=== PATIENT | female | born 1950 | race Caucasian/White ===

== ENCOUNTER 2023-04-13 20:17 | Inpatient (IN) ==
[2023-04-13] MEDS ORDERED: MoRPHine SULFATE 4 MG/ML 1 ML CARP\\VIAL IV STA (22:50)
[2023-04-13] MEDS ORDERED: Patient's ALLERGY Info needs ENTERED SCH (23:00)
--- NOTE | 2023-04-13 23:05 | History & Physical Report ---
Date of Service April 13, 2023 Assessment & Plan (1) Pericardial effusion: Plan: Patient is a 72-year-old female who presents to [facility] as a direct admit from [facility] for pericardial effusion seen on CTA. Admit to telemetry. We will get CBC, CMP, and will trend troponin. Started on aspirin 81 mg twice daily, colchicine 0.6 mg twice daily. Given 4 mg morphine at time of admission due to increasing chest pain. We will start morphine 4 mg every 6 hours. Ordered echo to be performed in the morning. Routine cardiac consult placed. No signs of cardiac tamponade at this time. Though will monitor closely. If signs of cardiac tamponade occur then cardiology should be immediately made aware. We will keep n.p.o. until seen by cardiology (2) Hyperlipidemia: Plan: Currently taking a atorvastatin 20 mg. Consider restarting once med rec is complete (3) Hypertension: Plan: Currently taking amlodipine 5 mg. Consider restarting once med rec is complete. Admission and Anticipated Discharge Date Admission Date: April 13, 2023 History of Present Illness Chief Complaint: Pericardial effusion Primary Care Provider: Baldo Sow MD Patient is a 72-year-old female with past medical history of hypertension, hyperlipidemia, and depression who is a direct admit from [facility] for pericardial effusion. Patient seen by her PCP on 04/12 for chest pain, shortness of breath, and nonproductive cough. She was told that it was most likely a viral illness. This morning she started to have more difficult breathing and pain with inspiration. She went to [facility]. EKG at [facility] also showed sinus tach. Chest x-ray showed moderate cardiomegaly with haziness in the left lower lobe. CAT scan of the chest showed a large pericardial effusion without pulmonary embolism. Patient was then transferred to at [facility] for further evaluation. Patient was given morphine at 1500 prior to being transferred. Patient seen bedside at time of arrival. Hemodynamically stable at this time. States that her chest pain occurs when she takes a deep breath and was starting to subside with morphine at 1500. Health chest pain is starting to slowly return especially during deep breaths. Patient denies any abdominal pain, nause a or vomiting, lightheadedness, or headache. Allergies Allergy/AdvReac Type Severity Reaction Status Date / Time vancomycin Allergy Mild Rash Verified 04/14/23 22:29 Home Medications Medication Instructions Recorded Confirmed Type amlodipine 5 mg tablet 5 mg PO DAILY 04/14/23 04/14/23 History atorvastatin 20 mg tablet 20 mg PO DAILY 04/14/23 04/14/23 History escitalopram oxalate 10 mg tablet 10 mg PO DAILY 04/14/23 04/14/23 History irbesartan 150 mg tablet 150 mg PO DAILY 04/14/23 04/14/23 History tramadol 50 mg tablet 50 mg PO Q8H PRN Pain 04/14/23 04/14/23 History Past Med/Surg History Social History Smoking Status: Former smoker Hx Alcohol Use: Yes Alcohol type: wine Hx Substance Use: No Preferred Language: Occitan Communication Ability: Effective Hair Spring Cutter Required: No Beliefs That Will Affect Care: None Current Living Situation: Spouse Feels Safe at Home: Yes Assistive Devices: None Review of Systems Review of Systems: All systems reviewed & are unremarkable except as noted in Subjective Physical Exam Constitutional: well developed and well nourished; no acute distress Eyes: PERRL, conjunctivae normal, anicteric sclerae Respiratory: normal respiratory effort, lungs clear to auscultation Cardiovascular: Rate/Rhythm: regular rate and regular rhythm Vessels: no JVD Extremities: no pedal edema Distant heart sounds Gastrointestinal (Abdomen): normal bowel sounds, soft, nontender, no hepatosplenomegaly Musculoskeletal: no cyanosis or clubbing, extremities motor strength 5/5 Skin: no rashes, warm and dry Results & Data Results & Data Vital Signs (Past 12 Hours) Vital Signs Temp Resp BP Pulse Ox O2 Del Method 04/13/23 22:28 36.8 C 20 120/80 94 Room Air Supervising Physician Co-Signing Physician Notes Attending addendum: I have physically seen this patient, have supervised the medical residents activities, and agree with the H&P unless as otherwise noted. Assessment and Plan: Pericardial effusion- Patient excepted in transfer from [facility] emergency department with his tory of pericardial effusion seen on CTA The patient will be admitted to telemetry for serial cardiac enzymes, serial EKG's, cardiac rhythm monitoring and a 2-D echocardiogram with Dopplers. Aspirin 81 mg p.o. twice daily Colchicine 0.6 mg p.o. twice daily Order CBC with differential, chemistry profile, magnesium level and troponin Consult cardiology PAF/hypertension- Presently on amlodipine 5 mg daily and irbesartan 150 mg daily Hyperlipidemia- Continue atorvastatin Check a fasting lipid panel Remaining orders and notations as noted Resident Activity Tracking Resident Involvement: Resident Care Provided Care Provided: Adult [facility] Medicine
[2023-04-13] MEDS: COLCHICINE 0.6 MG TAB PO SCH (23:30)
[2023-04-13] MEDS: ASPIRIN 81 MG ECTAB PO SCH (23:30)
[2023-04-13 23:45] LABS: Basophils # (auto) 0.08 K/uL (0-0.2); Basophils % (auto) 0.3 %; Hematocrit (blood only) 41.5 % (37.0-47.0); Hemoglobin 13.7 g/dl (12.0-16.0); Immature Granulocytes # (auto) 0.13 K/uL (0.01-0.20); Immature Granulocytes % (auto) 0.6 %; Lymphocytes # (auto) 1.74 K/uL (1.2-3.4); Lymphocytes % (auto) 7.6 %; Mean Corpuscular Hemoglobin 28.9 pg (25.0-34.0); Mean Corpuscular Volume 87.6 fL (80.0-100.0); Mean Platelet Volume 10.1 fL (9.4-12.4); Monocytes % (auto) 10.1 %; Neutrophils # (auto) 18.63 K/uL (1.40-6.50); Neutrophils % (auto) 81.4 %; Platelet Count 320 K/uL (130-400); RDW Coefficient of Variation 14.2 % (11.5-14.5); RDW Standard Deviation 45.2 fL (36.4-46.3); Red Blood Count 4.74 M/uL (4.20-5.40); White Blood Count 22.88 K/ul (4.8-10.8)
[2023-04-14] LABS: Albumin Globulin Ratio 1.3 (0.9-2); Albumin Level 4.4 gm/dl (3.4-5.0); Bilirubin,Total 1.4 mg/dl (0.2-1.0); Calcium 9.7 mg/dl (8.6-10.3); Creatinine Clr Calc Pharmacy 43.1 ml/min; Est GFR (African American) 52.7 ml/min; Est GFR (Non-African American) 45.4 ml/min; Globulin 3.3 gm/dl (2.5-4.0); Potassium 4.5 mmol/L (3.5-5.1); Total Protein 7.7 gm/dl (6.0-8.3)
[2023-04-14 00:05] LABS: Troponin I High Sensitivity 7.8 pg/ml (0-14)
[2023-04-14] MEDS: MoRPHine SULFATE 4 MG/ML 1 ML CARP\\VIAL IV PRN ×2 (06:43→22:08)
[2023-04-14 07:14] LABS: Hematocrit (blood only) 41.8 % (37.0-47.0); Hemoglobin 13.7 g/dl (12.0-16.0); Mean Corpuscular Hemoglobin 28.8 pg (25.0-34.0); Mean Corpuscular Hgb Conc 32.8 g/dL (32.0-36.0); Mean Platelet Volume 10.3 fL (9.4-12.4); Platelet Count 329 K/uL (130-400); RDW Coefficient of Variation 14.4 % (11.5-14.5); RDW Standard Deviation 46.3 fL (36.4-46.3); Red Blood Count 4.75 M/uL (4.20-5.40); White Blood Count 25.17 K/ul (4.8-10.8)
[2023-04-14 07:29] LABS: Albumin Globulin Ratio 1.3 (0.9-2); Albumin Level 4.5 gm/dl (3.4-5.0); BUN Creatinine Ratio 23.9 (10-20); Bilirubin,Total 1.2 mg/dl (0.2-1.0); Calcium 9.8 mg/dl (8.6-10.3); Creatinine Clr Calc Pharmacy 47.4 ml/min; Est GFR (African American) 59.1 ml/min; Globulin 3.5 gm/dl (2.5-4.0); Magnesium 1.6 mg/dl (1.7-2.4); Potassium 4.3 mmol/L (3.5-5.1)
[2023-04-14 07:34] LABS: Troponin I High Sensitivity 5.1 pg/ml (0-14)
--- NOTE | 2023-04-14 07:55 | Hospitalist Progress Note ---
Date of Service April 14, 2023 Assessment & Plan (1) Cardiac/pericardial tamponade: Plan: Patient is a 72-year-old female who presents to [facility] as a direct admit from [facility] for pericardial effusion seen on CTA. Placed on aspirin/colchicine Trop negative ECHO LV systolic function normal. No regional wma. Mild concentric LVH. EF 60- 65%. LARGE PERICARDIAL EFFUSION. RV compression during diastole. Pericardium appears moderately thickened. Cards consulted given large effusion/concerns for need for pericardiocentesis s/p pericardiocentesis this morning with Dr Ribeiro. Given leukocytosis this mroning, I checked procalcitonin which was elevated to 8, concerning for infection Blood cultures ordered and pending Orders placed for empiric abx w/ Vanco/Ceftriaxone in the meantime ICU juice tester consulted and alerted this morning when patient went to geoscience laboratory technician for cardiocentesis, monitoring ICU post-op per ICU note, repeat procal in AM/consideration for consultation w/ ID pending results of fluid appreciate assistance/recommendations Fluid for analysis pending, per discussion w/ Dr Patel, concerning for malignancy w/ thickened pericardium. Did alert Dr العلي for possible need for consultation pending - to reach out if/when Repeat ECHO timing per cardiology, further recs pending fluid analysis DVT Proph: SCDs, holding chemoproph pending pericardial drain removal Repeat labs in AM (2) Pericardial effusion: Plan: as above, s/p pericardiocentesis. f/u fluid, possible need consultation ID vs hematology/oncology as above given concerns for malignancy (3) Hyperlipidemia: Plan: Resume atorvastatin (4) Hypertension: Plan: BPs borderline, will hold off amlopdine for now but can be resumed in AM. If Cr stable on repeat in AM would resume her irbesartan (5) Leukocytosis: Plan: as above, concerning for infection. CRP also elevated. unclear if viral vs bacterial, but given procal, blood cultures ordered this morning/abx as above monitor cbc on repeat Plan monitoring in ICU post-pericardiocentesis, management of drain/repeat ECHO per cardiology appreciate assistance/recs by ICU juice tester continue abx/monitor blood cultures and possible need ID consultation vs hematology pending pericardial fluid analysis Admission and Anticipated Discharge Date Admission Date: April 13, 2023 Supervising Physician Co-Signing Physician Notes PA Supervision Note: I did not personally see or examine the patient. I verified all zuniga points and agree with JOSE EDUARDO Brown with the following exceptions and/or additions: Patient is s/p placement of pericardial drain for massive pericardial effusion, with early Echo findings of tamponade. Also with evidence of pericardial thickening, need to rule out malignancy. With improvement in chest pressure symptoms with removal of over a liter of fluid, awaiting cytology and cultures. WBC count elevated in 20s on admission with procal 8, concern for bacterial infection so BCx collected and empiric vanc/ceftriaxone started this AM, to titrate as able based on cultures and further clinical improvement. Patient is ICU status post-pericardial drain. Subjective Eval post-geoscience laboratory technician in ICU 108 after cardiocentesis this morning. Daughter (who is RN) at bedside. Chest discomfort much improved, shortness of breath resolving. On NC post-op to maintain sats. Drain in place, drained 1320mL yellowish drainage. Per discussion with Dr Patel, concerns for malignancy. Does have smoking hx but quit in 1982. NO current fevers/chills, abdominal pain, nausea or vomiting. Thirsty. Provided water by daughter. Discussed blood cultures/antibiotics, drain to remain in place for now and analysis of fluid but did alert hematology for possible need for consultation but will await analysis/cultures. Questions/concerns addressed at this time. Physical Exam Physical Exam: General: WD female sitting up in bed in ICU, drain in place, reporting feeling much better than this morning HEENT: head normocephalic, atraumatic, mm slightly dry, trachea midline Resp normal effort, no cough, on NC post-op, no wheezing CV: regular rhythm, slightly tachy to low 100s, no significant m/r/g, pericardial drain in place, yellowish fluid draining GI: +BS, soft/NT MSK/Neuro: no focal deficits, answering questions appropriately, no slurred speech, follows commands Psych: AOx3, cooperative with examination Results & Data Results & Data Vital Signs (Past 12 Hours) Vital Signs Temp Pulse Pulse Resp BP Pulse Ox O2 Del Method 04/14/23 07:12 37.4 C 108 H 22 122/74 90 Room Air 04/14/23 03:31 36.6 C 98 H 18 110/73 94 Room Air 04/13/23 23:00 94 H 04/13/23 22:50 Room Air 04/13/23 22:28 36.8 C 20 120/80 94 Room Air Laboratory Results 04/14/23 04/14/23 04/14/23 Range/Units 12:39 12:39 11:04 WBC (4.8-10.8) K/ul RBC (4.20-5.40) M/uL Hgb (12.0-16.0) g/dl Hct (37.0-47.0) % MCV (80.0-100.0) fL MCH (25.0-34.0) pg MCHC (32.0-36.0) g/dL RDW Std Deviation (36.4-46.3) fL RDW Coeff of Fede (11.5-14.5) % Plt Count (130-400) K/uL MPV (9.4-12.4) fL Immature Gran % (Auto) % Neut % (Auto) % Lymph % (Auto) % [place] % (Auto) % Eos % (Auto) % Baso % (Auto) % Neut # (Auto) (1.40-6.50) K/uL Lymph # (Auto) (1.2-3.4) K/uL [place] # (Auto) (0.11-0.59) K/uL Eos # (Auto) (0-0.50) K/uL Baso # (Auto) (0-0.2) K/uL Immature Gran # (Auto) (0.01-0.20) K/uL Polychromasia Echinocytes ESR (0-30) mm/hr PT (9.0-12.0) Seconds INR (0.9-1.1) Sodium (136-145) mmol/L Potassium (3.5-5.1) mmol/L Chloride (98-107) mmol/L Carbon Dioxide (21-32) mmol/L Anion Gap (3-11) BUN (6-23) mg/dl Creatinine (0.6-1.2) mg/dl Est Cr Clr Drug Dosing ml/min Est GFR ( Amer) ml/min Est GFR (Non-Af Amer) ml/min BUN/Creatinine Ratio (10-20) Glucose (70-99(Fasting)) mg/dl Calcium (8.6-10.3) mg/dl Magnesium (1.7-2.4) mg/dl Total Bilirubin (0.2-1.0) mg/dl AST (13-39) U/L ALT (7-52) U/L Alkaline Phosphatase (34-104) U/L Lactate Dehydrogenase 155 (86-244) U/L Troponin I High Sens (0-14) pg/ml C-Reactive Protein (0-0.5) mg/dl Total Protein 7.3 (6.0-8.3) gm/dl Albumin (3.4-5.0) gm/dl Globulin (2.5-4.0) gm/dl Albumin/Globulin Ratio (0.9-2) Procalcitonin (0-0.5) ng/ml Fluid Type Fluid Color Fluid Appearance Fld Tot Nucleated Cell Fluid Neutrophils % Fluid Lymphocytes % Fluid Eosinophils % Fluid Basophils % Fl Monocyt/Macrophag % Fld Mesothelial Cell % Fluid Comment 2 Pericard Total Protein Pericardial Albumin Pericardial LDH Pericardial Glucose Pericardial Amylase Pending Adenovirus Culture Lyme Disease IgG Ab (Negative) Lyme Disease IgM Ab (Negative) CMV Culture Enterovirus Culture HSV I HSV II SARS-CoV-2, RNA, NAAT (NEGATIVE) VZV Culture Viral Source 04/14/23 04/14/23 04/14/23 Range/Units 11:04 11:04 08:57 WBC (4.8-10.8) K/ul RBC (4.20-5.40) M/uL Hgb (12.0-16.0) g/dl Hct (37.0-47.0) % MCV (80.0-100.0) fL MCH (25.0-34.0) pg MCHC (32.0-36.0) g/dL RDW Std Deviation (36.4-46.3) fL RDW Coeff of Fede (11.5-14.5) % Plt Count (130-400) K/uL MPV (9.4-12.4) fL Immature Gran % (Auto) % Neut % (Auto) % Lymph % (Auto) % [place] % (Auto) % Eos % (Auto) % Baso % (Auto) % Neut # (Auto) (1.40-6.50) K/uL Lymph # (Auto) (1.2-3.4) K/uL [place] # (Auto) (0.11-0.59) K/uL Eos # (Auto) (0-0.50) K/uL Baso # (Auto) (0-0.2) K/uL Immature Gran # (Auto) (0.01-0.20) K/uL Polychromasia Echinocytes ESR (0-30) mm/hr PT (9.0-12.0) Seconds INR (0.9-1.1) Sodium 136 (136-145) mmol/L Potassium 4.5 (3.5-5.1) mmol/L Chloride 104 (98-107) mmol/L Carbon Dioxide 20 L (21-32) mmol/L Anion Gap 12 H (3-11) BUN 27 H (6-23) mg/dl Creatinine 0.97 (0.6-1.2) mg/dl Est Cr Clr Drug Dosing 53.3 ml/min Est GFR ( Amer) 68.1 ml/min Est GFR (Non-Af Amer) 58.8 ml/min BUN/Creatinine Ratio 27.8 H (10-20) Glucose 117 H (70-99(Fasting)) mg/dl Calcium 9.7 (8.6-10.3) mg/dl Magnesium (1.7-2.4) mg/dl Total Bilirubin 1.1 H (0.2-1.0) mg/dl AST 17 (13-39) U/L ALT 23 (7-52) U/L Alkaline Phosphatase 62 (34-104) U/L Lactate Dehydrogenase (86-244) U/L Troponin I High Sens 3.7 (0-14) pg/ml C-Reactive Protein 38.30 H (0-0.5) mg/dl Total Protein 7.9 (6.0-8.3) gm/dl Albumin 4.5 (3.4-5.0) gm/dl Globulin 3.4 (2.5-4.0) gm/dl Albumin/Globulin Ratio 1.3 (0.9-2) Procalcitonin (0-0.5) ng/ml Fluid Type Pending Fluid Color Pending Fluid Appearance Pending Fld Tot Nucleated Cell Pending Fluid Neutrophils % Pending Fluid Lymphocytes % Pending Fluid Eosinophils % Pending Fluid Basophils % Pending Fl Monocyt/Macrophag % Pending Fld Mesothelial Cell % Pending Fluid Comment 2 Pending Pericard Total Protein Pending Pericardial Albumin Pending Pericardial LDH Pending Pericardial Glucose Pending Pericardial Amylase Cancelled Adenovirus Culture Pending Lyme Disease IgG Ab (Negative) Lyme Disease IgM Ab (Negative) CMV Culture Pending Enterovirus Culture Pending HSV I Pending HSV II Pending SARS-CoV-2, RNA, NAAT (NEGATIVE) VZV Culture Pending Viral Source Pending 04/14/23 04/14/23 04/14/23 Range/Units 08:57 08:57 08:57 WBC 24.31 H (4.8-10.8) K/ul RBC 4.82 (4.20-5.40) M/uL Hgb 13.9 (12.0-16.0) g/dl Hct 42.2 (37.0-47.0) % MCV 87.6 (80.0-100.0) fL MCH 28.8 (25.0-34.0) pg MCHC 32.9 (32.0-36.0) g/dL RDW Std Deviation 46.4 H (36.4-46.3) fL RDW Coeff of Fede 14.5 (11.5-14.5) % Plt Count 311 (130-400) K/uL MPV 10.0 (9.4-12.4) fL Immature Gran % (Auto) 0.9 % Neut % (Auto) 85.5 % Lymph % (Auto) 4.4 % [place] % (Auto) 8.9 % Eos % (Auto) 0.0 % Baso % (Auto) 0.3 % Neut # (Auto) 20.76 H (1.40-6.50) K/uL Lymph # (Auto) 1.08 L (1.2-3.4) K/uL [place] # (Auto) 2.16 H (0.11-0.59) K/uL Eos # (Auto) 0.01 (0-0.50) K/uL Baso # (Auto) 0.07 (0-0.2) K/uL Immature Gran # (Auto) 0.23 H (0.01-0.20) K/uL Polychromasia 1+ Echinocytes 1+ ESR 62 H (0-30) mm/hr PT 11.4 (9.0-12.0) Seconds INR 1.0 (0.9-1.1) Sodium (136-145) mmol/L Potassium (3.5-5.1) mmol/L Chloride (98-107) mmol/L Carbon Dioxide (21-32) mmol/L Anion Gap (3-11) BUN (6-23) mg/dl Creatinine (0.6-1.2) mg/dl Est Cr Clr Drug Dosing ml/min Est GFR ( Amer) ml/min Est GFR (Non-Af Amer) ml/min BUN/Creatinine Ratio (10-20) Glucose (70-99(Fasting)) mg/dl Calcium (8.6-10.3) mg/dl Magnesium (1.7-2.4) mg/dl Total Bilirubin (0.2-1.0) mg/dl AST (13-39) U/L ALT (7-52) U/L Alkaline Phosphatase (34-104) U/L Lactate Dehydrogenase (86-244) U/L Troponin I High Sens (0-14) pg/ml C-Reactive Protein (0-0.5) mg/dl Total Protein (6.0-8.3) gm/dl Albumin (3.4-5.0) gm/dl Globulin (2.5-4.0) gm/dl Albumin/Globulin Ratio (0.9-2) Procalcitonin (0-0.5) ng/ml Fluid Type Fluid Color Fluid Appearance Fld Tot Nucleated Cell Fluid Neutrophils % Fluid Lymphocytes % Fluid Eosinophils % Fluid Basophils % Fl Monocyt/Macrophag % Fld Mesothelial Cell % Fluid Comment 2 Pericard Total Protein Pericardial Albumin Pericardial LDH Pericardial Glucose Pericardial Amylase Adenovirus Culture Lyme Disease IgG Ab (Negative) Lyme Disease IgM Ab (Negative) CMV Culture Enterovirus Culture HSV I HSV II SARS-CoV-2, RNA, NAAT (NEGATIVE) VZV Culture Viral Source 04/14/23 04/14/23 04/14/23 Range/Units 08:57 06:43 06:43 WBC 25.17 H (4.8-10.8) K/ul RBC 4.75 (4.20-5.40) M/uL Hgb 13.7 (12.0-16.0) g/dl Hct 41.8 (37.0-47.0) % MCV 88.0 (80.0-100.0) fL MCH 28.8 (25.0-34.0) pg MCHC 32.8 (32.0-36.0) g/dL RDW Std Deviation 46.3 (36.4-46.3) fL RDW Coeff of Fede 14.4 (11.5-14.5) % Plt Count 329 (130-400) K/uL MPV 10.3 (9.4-12.4) fL Immature Gran % (Auto) % Neut % (Auto) % Lymph % (Auto) % [place] % (Auto) % Eos % (Auto) % Baso % (Auto) % Neut # (Auto) (1.40-6.50) K/uL Lymph # (Auto) (1.2-3.4) K/uL [place] # (Auto) (0.11-0.59) K/uL Eos # (Auto) (0-0.50) K/uL Baso # (Auto) (0-0.2) K/uL Immature Gran # (Auto) (0.01-0.20) K/uL Polychromasia Echinocytes ESR (0-30) mm/hr PT (9.0-12.0) Seconds INR (0.9-1.1) Sodium 136 (136-145) mmol/L Potassium 4.3 (3.5-5.1) mmol/L Chloride 102 (98-107) mmol/L Carbon Dioxide 24 (21-32) mmol/L Anion Gap 10 (3-11) BUN 26 H (6-23) mg/dl Creatinine 1.09 (0.6-1.2) mg/dl Est Cr Clr Drug Dosing 47.4 ml/min Est GFR ( Amer) 59.1 ml/min Est GFR (Non-Af Amer) 51.0 ml/min BUN/Creatinine Ratio 23.9 H (10-20) Glucose 122 H (70-99(Fasting)) mg/dl Calcium 9.8 (8.6-10.3) mg/dl Magnesium 1.6 L (1.7-2.4) mg/dl Total Bilirubin 1.2 H (0.2-1.0) mg/dl AST 18 (13-39) U/L ALT 24 (7-52) U/L Alkaline Phosphatase 60 (34-104) U/L Lactate Dehydrogenase (86-244) U/L Troponin I High Sens 5.1 (0-14) pg/ml C-Reactive Protein (0-0.5) mg/dl Total Protein 8.0 (6.0-8.3) gm/dl Albumin 4.5 (3.4-5.0) gm/dl Globulin 3.5 (2.5-4.0) gm/dl Albumin/Globulin Ratio 1.3 (0.9-2) Procalcitonin 8.03 H (0-0.5) ng/ml Fluid Type Fluid Color Fluid Appearance Fld Tot Nucleated Cell Fluid Neutrophils % Fluid Lymphocytes % Fluid Eosinophils % Fluid Basophils % Fl Monocyt/Macrophag % Fld Mesothelial Cell % Fluid Comment 2 Pericard Total Protein Pericardial Albumin Pericardial LDH Pericardial Glucose Pericardial Amylase Adenovirus Culture Lyme Disease IgG Ab Negative (Negative) Lyme Disease IgM Ab Negative (Negative) CMV Culture Enterovirus Culture HSV I HSV II SARS-CoV-2, RNA, NAAT (NEGATIVE) VZV Culture Viral Source 04/13/23 04/13/23 04/13/23 Range/Units 23:30 23:21 23:21 WBC 22.88 H (4.8-10.8) K/ul RBC 4.74 (4.20-5.40) M/uL Hgb 13.7 (12.0-16.0) g/dl Hct 41.5 (37.0-47.0) % MCV 87.6 (80.0-100.0) fL MCH 28.9 (25.0-34.0) pg MCHC 33.0 (32.0-36.0) g/dL RDW Std Deviation 45.2 (36.4-46.3) fL RDW Coeff of Fede 14.2 (11.5-14.5) % Plt Count 320 (130-400) K/uL MPV 10.1 (9.4-12.4) fL Immature Gran % (Auto) 0.6 % Neut % (Auto) 81.4 % Lymph % (Auto) 7.6 % [place] % (Auto) 10.1 % Eos % (Auto) 0.0 % Baso % (Auto) 0.3 % Neut # (Auto) 18.63 H (1.40-6.50) K/uL Lymph # (Auto) 1.74 (1.2-3.4) K/uL [place] # (Auto) 2.30 H (0.11-0.59) K/uL Eos # (Auto) 0.00 (0-0.50) K/uL Baso # (Auto) 0.08 (0-0.2) K/uL Immature Gran # (Auto) 0.13 (0.01-0.20) K/uL Polychromasia Echinocytes ESR (0-30) mm/hr PT (9.0-12.0) Seconds INR (0.9-1.1) Sodium 135 L (136-145) mmol/L Potassium 4.5 (3.5-5.1) mmol/L Chloride 102 (98-107) mmol/L Carbon Dioxide 22 (21-32) mmol/L Anion Gap 11 (3-11) BUN 24 H (6-23) mg/dl Creatinine 1.20 (0.6-1.2) mg/dl Est Cr Clr Drug Dosing 43.1 ml/min Est GFR ( Amer) 52.7 ml/min Est GFR (Non-Af Amer) 45.4 ml/min BUN/Creatinine Ratio 20.0 (10-20) Glucose 154 H (70-99(Fasting)) mg/dl Calcium 9.7 (8.6-10.3) mg/dl Magnesium (1.7-2.4) mg/dl Total Bilirubin 1.4 H (0.2-1.0) mg/dl AST 21 (13-39) U/L ALT 26 (7-52) U/L Alkaline Phosphatase 58 (34-104) U/L Lactate Dehydrogenase (86-244) U/L Troponin I High Sens 7.8 (0-14) pg/ml C-Reactive Protein (0-0.5) mg/dl Total Protein 7.7 (6.0-8.3) gm/dl Albumin 4.4 (3.4-5.0) gm/dl Globulin 3.3 (2.5-4.0) gm/dl Albumin/Globulin Ratio 1.3 (0.9-2) Procalcitonin (0-0.5) ng/ml Fluid Type Fluid Color Fluid Appearance Fld Tot Nucleated Cell Fluid Neutrophils % Fluid Lymphocytes % Fluid Eosinophils % Fluid Basophils % Fl Monocyt/Macrophag % Fld Mesothelial Cell % Fluid Comment 2 Pericard Total Protein Pericardial Albumin Pericardial LDH Pericardial Glucose Pericardial Amylase Adenovirus Culture Lyme Disease IgG Ab (Negative) Lyme Disease IgM Ab (Negative) CMV Culture Enterovirus Culture HSV I HSV II SARS-CoV-2, RNA, NAAT NEGATIVE (NEGATIVE) VZV Culture Viral Source Diagnostic Findings Chest X-Ray 04/14/23 07:51 XR chest 1V portable HISTORY: leukocytosis, pericardial effusion, eval pna COMPARISON: Outside hospital chest CTA 04/13/2023. FINDINGS: The cardiac silhouette is markedly enlarged consistent with patient's known large pericardial effusion. No pneumothorax. Trace bilateral pleural effusions persist. No evidence for pulmonary edema. No new focal lung consolidations to suggest pneumonia. A few bibasilar linear densities favor subsegmental atelectasis. No acute fractures. IMPRESSION: Enlargement of the cardiac silhouette consistent with the patient's known large pericardial effusion. This is similar to the prior study. ACT 112: Negative or not required by law. Electronically signed by: Randall Lowery M.D. 04/14/2023 8:52 AM ECHOCARDIOGRAM LV systolic function normal. No regional wma. Mild concentric LVH. EF 60-65%. LARGE PERICARDIAL EFFUSION. RV compression during diastole. Pericardium appears moderately thickened. No prior study for comparison PG Care Time/CCT Total # of Minutes Spent Total Time Spent with Patient: Total time spent is greater than 50% in coordination of care (as documented) at patient's floor/unit and/or counseling patient: Coding Level of Care Code 83176 SUB INP/OBS CARE 3/50MIN Diagnoses Cardiac/pericardial tamponade I31.4 Pericardial effusion I31.39 Hyperlipidemia E78.5 Hypertension I10 Leukocytosis D72.829
[2023-04-14] MEDS: COLCHICINE 0.6 MG TAB PO SCH ×2 (08:33→21:02)
[2023-04-14] MEDS: ASPIRIN 81 MG ECTAB PO SCH ×2 (08:34→21:02)
[2023-04-14] MEDS ORDERED: MoRPHine SULFATE 4 MG/ML 1 ML CARP\\VIAL IV STA (08:40)
[2023-04-14] MEDS ORDERED: MoRPHine SULFATE 10 MG/ML CARP/VIAL IV STA (08:41)
[2023-04-14] MEDS: MAGNESIUM SULFATE / D5W 1 GM/100 ML BAG IV SCH ×2 (08:44→12:55)
--- NOTE | 2023-04-14 08:54 | XRay Report ---
XR chest 1V portable HISTORY: leukocytosis, pericardial effusion, eval pna COMPARISON: Outside hospital chest CTA 04/13/2023. FINDINGS: The cardiac silhouette is markedly enlarged consistent with patient's known large pericardi al effusion. No pneumothorax. Trace bilateral pleural effusions persist. No evidence for pulmonary ed lynette. No new focal lung consolidations to suggest pneumonia. A few bibasilar linear densities favor frias bsegmental atelectasis. No acute fractures. IMPRESSION: Enlargement of the cardiac silhouette consistent with the patient's known large pericardial effusion. This is similar to the prior study. ACT 112: Negative or not required by law. Electronically signed by: Randall Lowery M.D. 04/14/2023 8:52 AM
[2023-04-14] MEDS ORDERED: IBUPROFEN 600 MG TAB PO STA (09:17)
[2023-04-14] MEDS ORDERED: FAMOTIDINE 20 MG in SYRINGE 3 ML IV ONE (09:30)
[2023-04-14 09:41] LABS: Hematocrit (blood only) 42.2 % (37.0-47.0); Hemoglobin 13.9 g/dl (12.0-16.0); Mean Corpuscular Hemoglobin 28.8 pg (25.0-34.0); Mean Corpuscular Hgb Conc 32.9 g/dL (32.0-36.0); Mean Corpuscular Volume 87.6 fL (80.0-100.0); Platelet Count 311 K/uL (130-400); RDW Coefficient of Variation 14.5 % (11.5-14.5); RDW Standard Deviation 46.4 fL (36.4-46.3); Red Blood Count 4.82 M/uL (4.20-5.40); White Blood Count 24.31 K/ul (4.8-10.8)
--- NOTE | 2023-04-14 09:51 | XCELERA ---
[id number]
[2023-04-14 10:00] LABS: Albumin Globulin Ratio 1.3 (0.9-2); Albumin Level 4.5 gm/dl (3.4-5.0); BUN Creatinine Ratio 27.8 (10-20); Bilirubin,Total 1.1 mg/dl (0.2-1.0); Calcium 9.7 mg/dl (8.6-10.3); Creatinine Clr Calc Pharmacy 53.3 ml/min; Est GFR (African American) 68.1 ml/min; Est GFR (Non-African American) 58.8 ml/min; Globulin 3.4 gm/dl (2.5-4.0); Potassium 4.5 mmol/L (3.5-5.1); Total Protein 7.9 gm/dl (6.0-8.3)
[2023-04-14 10:06] LABS: Troponin I High Sensitivity 3.7 pg/ml (0-14)
[2023-04-14 10:07] LABS: Basophils # (auto) 0.07 K/uL (0-0.2); Basophils % (auto) 0.3 %; Echinocytes 1+; Eosinophils # (auto) 0.01 K/uL (0-0.50); Immature Granulocytes # (auto) 0.23 K/uL (0.01-0.20); Immature Granulocytes % (auto) 0.9 %; Lymphocytes # (auto) 1.08 K/uL (1.2-3.4); Lymphocytes % (auto) 4.4 %; Monocytes # (auto) 2.16 K/uL (0.11-0.59); Monocytes % (auto) 8.9 %; Neutrophils # (auto) 20.76 K/uL (1.40-6.50); Neutrophils % (auto) 85.5 %; Polychromasia 1+
[2023-04-14 10:08] LABS: Prothrombin Time 11.4 Seconds (9.0-12.0)
[2023-04-14 10:11] LABS: Procalcitonin 8.03 ng/ml (0-0.5)
[2023-04-14 10:17] LABS: Lyme Ab IgG w/WB Rflx Negative (Negative); Lyme Ab IgM w/WB Rflx Negative (Negative)
[2023-04-14 10:20] LABS: C Reactive Protein 38.3 mg/dl (0-0.5)
[2023-04-14] MEDS ORDERED: LIDOCAINE 1% LOCAL 20 ML VIAL ONE (10:22)
[2023-04-14] MEDS ORDERED: fentaNYL citrate PF 100 MCG/2 ML VIAL ONE (10:34)
[2023-04-14] MEDS ORDERED: MIDAZOLAM HCL 1 MG/ML 2ML VIAL ONE (10:34)
[2023-04-14] MEDS ORDERED: VANCOMYCIN CONSULT ACTIVE PRN (10:36)
--- NOTE | 2023-04-14 10:47 | Cardiology Consultation ---
Date of Consultation April 14, 2023 Assessment & Plan (1) Pericardial effusion: -large effusion with echocardiographic evidence of tamponade. -needs urgent pericardiocentesis. -significant pericardial thickening, rule out metastatic disease. -continue colchicine. -consider intravenous Toradol for analgesia. -further recommendations pending pericardial fluid analysis. History of Present Illness Attending Physician: Bety Vasquez DO History of Present Illness Mrs. Arce is a 73-year-old female admitted yesterday because of a large peric ardial effusion noted on CT scan. This consultation was ordered to assist her cardiac management. The patient was in her usual state of health until Thursday evening when she began to note pleuritic chest discomfort and exertional dyspnea. Her symptoms progressed and she presented to her PCP on Thursday with the above complaints. She was told it was likely a viral illness. On Thursday morning, she was having or significant dyspnea and chest discomfort, therefore, presented to the [facility]'s emergency room. EKG notes sinus tachycardia and a chest x-ray noted significant cardiomegaly. A CT scan of the chest showed a large pericardial effusion without evidence of a pulmonary embolism. She was then transferred directly to our institution for further evaluation. She has continued to experience pleuritic and positional chest discomfort. She notes dyspnea with minimal physical activity. An echocardiogram performed this morning noted a large pericardial effusion with evidence of diastolic collapse of the right ventricle. We transported the patient directly to the cardiac catheterization laboratory for an emergent pericardiocentesis. Past medical and surgical history 1. Hypertension 2. Hypercholesterolemia 3. Anxiety/depression Social history , lives with her No tobacco Rare alcohol Family history Noncontributory Review of systems A 10 review systems undertaken and negative except that described above. 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 HEENT exam is negative. Neck is supple with full carotid upstrokes. There are no carotid bruits. Jugular venous pressure is flat at 90. There is no thyromegaly. Cardiovascular exam reveals a regular rhythm with distant heart sounds. No obvious murmurs. Lungs are clear without rales, rhonchi or wheeze. Abdomen is soft without bruits. Extremities reveal intact radial artery pulses bilaterally. There is no peripheral edema. Results & Data Vital Signs (Past 12 Hours) Vital Signs Temp Pulse Pulse Resp BP Pulse Ox O2 Del Method 04/14/23 10:25 703 H 18 103/79 90 Nasal Cannula 04/14/23 07:12 37.4 C 108 H 22 122/74 90 Room Air 04/14/23 03:31 36.6 C 98 H 18 110/73 94 Room Air 04/13/23 23:00 94 H 04/13/23 22:50 Room Air O2 Flow Rate 04/14/23 10:25 3 04/14/23 07:12 04/14/23 03:31 04/13/23 23:00 04/13/23 22:50 Laboratory Results CBC notes hemoglobin 13.7, crit 41.5, white count 22.9, platelet count 3 in 20,000. Electrolytes note a sodium 136, potassium 4.3, chloride 102, bicarb 24, BUN 26, creatinine 1.1, glucose of 122. Magnesium level is low at 1.6. Diagnostic Findings EKG notes sinus tachycardia with low voltage throughout. There is diffuse ST elevation and [place] depression noted in lead 2. Chest x-ray notes significant cardiomegaly. PG Care Time/CCT Total # of Minutes Spent Total Time Spent with Patient: Total time spent is greater than 50% in coordination of care (as documented) at patient's floor/unit and/or counseling patient: Coding Level of Care Code 70273 INT INP/OBS CARE 3/75MIN Diagnoses Pericardial effusion I31.39
[2023-04-14] MEDS ORDERED: VANCOMYCIN HCL 1,750 MG in SODIUM CHLORIDE 0.9% 500 ML IV ONE (11:00)
--- NOTE | 2023-04-14 11:53 | Post Anesthesia Assessment ---
Date of Service April 14, 2023 Post Sedation Assessment Vital Signs Temp Pulse Pulse Resp BP Pulse Ox O2 Del Method 04/14/23 11:09 110 H 04/14/23 08:00 Nasal Cannula 04/14/23 10:25 703 H 18 103/79 90 Nasal Cannula 04/14/23 07:12 37.4 C 108 H 22 122/74 90 Room Air 04/14/23 03:31 36.6 C 98 H 18 110/73 94 Room Air 04/13/23 23:00 94 H 04/13/23 22:50 Room Air 04/13/23 22:28 36.8 C 20 120/80 94 Room Air O2 Flow Rate 04/14/23 11:09 04/14/23 08:00 2 04/14/23 10:25 3 04/14/23 07:12 04/14/23 03:31 04/13/23 23:00 04/13/23 22:50 04/13/23 22:28 Recovery Score Activity: Moves 4 extremities Respiration: Deep Breath/Cough Circulation: +/-20% PreAnes Value Consciousness: Fully Awake Oxygen Saturation: > 92% On Room Air Discharge Sedation Level of Care: Fast Track Phase II Post Sedation Plan On clinical assessment, the patient appears to have tolerated the sedation without complications. Patient is recovering as anticipated. Patient will continue to be monitored by nursing and may be discharged when sedation discharge criteria are met per below protocol. Upon Completions of procedure up to 15 minutes continue every 5 minute vital signs and the P.A.R. score; then discharge to a Phase I or Fast Track to Phase II per the following guidelines: * Discharge Patient to appropriate Phase II area if PAR is 8 or greater or return to pre- procedure baseline. The post - procedure orders will be as directed. * If PAR score is less than 8 or not return to pre-procedure baseline then patient will follow Phase I monitoring till PAR is reached for Phase II. The Phase I may be done in procedure room or may call to secure a Phase I area. * If naloxone or flumazenil are used for reversal, hold in Phase I for continued monitoring from when last reversal dose was given for a minimum of 60 minutes or longer pending the nurse and/or physician discretion of patient condition before discharge to Phase II. Please call the Sedation Physician to re-evaluate and complete post-note for discharge to Phase II area. Do NOT discharge from procedure sedation or Phase 1 until post- sedation evaluation note is complete by procedure /sedation MD Sedation Discharge Instructions to be given to the patient at discharge to home. [facility] [place] Procedure Codes (Charges) Indication for Procedure Indication for procedure: pericardial effusion tamponade Sedation/Anesthesia Procedure 1: Sedation/Anesthesia: 42380 Mod Sedation by the same physician;Init15 Min Child Age 5 & Up (start 1054) Total Sedation Time (minutes): 37 Procedure 2: Sedation/Anesthesia: 01243 Mod Sedation by the same physician; Ea [id number] Minutes (end 1129) Total Sedation Time (minutes): 37
--- NOTE | 2023-04-14 12:41 | Critical Care Consultation ---
Date of Consultation April 14, 2023 Assessment & Plan (1) Pericardial effusion: (2) Cardiac/pericardial tamponade: Plan Impression: 72-year-old female without significant cardiopulmonary or oncology history presents with massive pericardial effusion and evidence of early tamponade status post pericardial drain with removal of 1.3 L of serous fluid. Cytology and fluid characteristics currently pending. She is in the ICU for monitoring while the pericardial drains in place. Recommendations: 1. Pericardial effusion: Continue surveillance with the drain. Follow-up echocardiogram per cardiology. Await fluid characterization including cytology cell count and differential, and culture data. Colchicine has been initiated by cardiology. Depending on results, serological evaluation may be appropriate. 2. Procalcitonin is markedly elevated at 8 with a C-reactive protein of 38. Unclear if this could be related to viral infection, however this elevation of procalcitonin is typically associated with a bacterial infection. Blood cultures obtained this morning showed no growth to date and pericardial studies are currently pending. Patient was initiated on ceftriaxone vancomycin. We will recheck procalcitonin in a.m. and consider tapering antibiotics or consulting infectious disease depending on results of the pericardial fluid. 3. Hold DVT prophylaxis other than SCDs pending pericardial drain removal. 4. Can resume diet unless cardiology has additional invasive procedures anticipated. 5. We will follow-up with CBC in a.m. History of Present Illness Attending Physician: Bety Vasquez, History of Present Illness Asked by hospitalist to assist in evaluation management this patient status postplacement of a pericardial drain for massive pericardial effusion with early echocardiographic evidence of tamponade. History is obtained from review electronic medical record as well as discussion with the patient. Patient is a 72-year-old female who initially presented to [facility] yesterday. She complained of some chest pain and shortness of breath. She had a chest x-ray demonstrated marked cardiomegaly. This was followed with a CT scan which demonstrated a large pericardial effusion. The patient was transported to [facility]. She was not felt to be in clinical tamponade yesterday and was observed. Echo today and cardiology consultation were consistent with early tamponade physiology and the patient was taken urgently to the Diabetes Trainer for pericardial drain placement. A total of 1.3 L of fluid was removed and the drain left in place and the patient transferred to the ICU for monitoring. Patient is hemodynamically stable currently with slight tachycardia. She thinks her breathing and chest pain are better. She does not report fevers chills or night sweats. Patient does not report any clear viral illness. There have been no ill contacts at home. She does have a family history of colon cancer but gets colonoscopies regularly. She has had polyps removed but no malignancy that she is aware of. Allergies Allergy/AdvReac Type Severity Reaction Status Date / Time No Known Allergies Allergy Unverified 04/13/23 23:03 Home Medications Medication Instructions Recorded Confirmed Type amlodipine 5 mg tablet 5 mg PO DAILY 04/14/23 04/14/23 History atorvastatin 20 mg tablet 20 mg PO DAILY 04/14/23 04/14/23 History escitalopram oxalate 10 mg tablet 10 mg PO DAILY 04/14/23 04/14/23 History irbesartan 150 mg tablet 150 mg PO DAILY 04/14/23 04/14/23 History tramadol 50 mg tablet 50 mg PO Q8H PRN Pain 04/14/23 04/14/23 History Patient History Social History Smoking Status: Former smoker Hx Alcohol Use: Yes Alcohol type: wine Hx Substance Use: No Preferred Language: French 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 Beliefs That Will Affect Care: None Current Living Situation: Spouse Feels Safe at Home: Yes Assistive Devices: Glasses Review of Systems Review of Systems: Please refer to admission H&P Physical Exam Constitutional: WD/WN, vitals as above Neck: trachea midline, no thyromegaly Respiratory: normal respiratory effort, lungs clear to auscultation Cardiovascular: RRR, no murmur, no edema Chest (Breasts): Additional Comments: Pericardial drain in place Gastrointestinal (Abdomen): normal bowel sounds, soft, nontender, no hepatosplenomegaly Musculoskeletal: Extremities: extremities normal to inspection Skin: no rashes, warm and dry Neurologic: Nonfocal exam Lymphatic: no cervical lymphadenopathy Results & Data Results & Data Vital Signs (Past 12 Hours) Vital Signs Temp Pulse Pulse Pulse Resp BP Pulse Ox 04/14/23 12:00 103 H 16 107/64 92 04/14/23 11:45 105 H 16 121/61 93 04/14/23 11:09 110 H 04/14/23 08:00 04/14/23 10:25 70 18 103/79 90 04/14/23 07:12 37.4 C 108 H 22 122/74 90 04/14/23 03:31 36.6 C 98 H 18 110/73 94 O2 Del Method O2 Flow Rate 04/14/23 12:00 Room Air 04/14/23 11:45 Room Air 04/14/23 11:09 04/14/23 08:00 Nasal Cannula 2 04/14/23 10:25 Nasal Cannula 3 04/14/23 07:12 Room Air 04/14/23 03:31 Room Air Critical Care Results & Data Vital Signs (Past 12 Hours) Vital Signs Temp Pulse Pulse Pulse Resp BP Pulse Ox 04/14/23 12:00 103 H 16 107/64 92 04/14/23 11:45 105 H 16 121/61 93 04/14/23 11:09 110 H 04/14/23 08:00 04/14/23 10:25 70 18 103/79 90 04/14/23 07:12 37.4 C 108 H 22 122/74 90 04/14/23 03:31 36.6 C 98 H 18 110/73 94 O2 Del Method O2 Flow Rate 04/14/23 12:00 Room Air 04/14/23 11:45 Room Air 04/14/23 11:09 04/14/23 08:00 Nasal Cannula 2 04/14/23 10:25 Nasal Cannula 3 04/14/23 07:12 Room Air 04/14/23 03:31 Room Air Lab & Micro Results (Past 24 Hours) RBC 4.82 M/uL (4.20-5.40) 04/14/23 WBC 24.31 K/ul (4.8-10.8) H 04/14/23 Hgb 13.9 g/dl (12.0-16.0) 04/14/23 Hct 42.2 % (37.0-47.0) 04/14/23 MCV 87.6 fL (80.0-100.0) 04/14/23 MCH 28.8 pg (25.0-34.0) 04/14/23 MCHC 32.9 g/dL (32.0-36.0) 04/14/23 RDW Standard Deviation 46.4 fL (36.4-46.3) H 04/14/23 RDW Coefficient of Variation 14.5 % (11.5-14.5) 04/14/23 Plt Count 311 K/uL (130-400) 04/14/23 MPV 10.0 fL (9.4-12.4) 04/14/23 Neutrophils (%) (Auto) 85.5 % 04/14/23 Lymphocytes (%) (Auto) 4.4 % 04/14/23 Monocytes # (Auto) 2.16 K/uL (0.11-0.59) H 04/14/23 Eosinophils # (Auto) 0.01 K/uL (0-0.50) 04/14/23 Immature Granulocyte % (Auto) 0.9 % 04/14/23 Neutrophils # (Auto) 20.76 K/uL (1.40-6.50) H 04/14/23 Lymphocytes # (Auto) 1.08 K/uL (1.2-3.4) L 04/14/23 Monocytes # (Auto) 2.16 K/uL (0.11-0.59) H 04/14/23 Eosinophils # (Auto) 0.01 K/uL (0-0.50) 04/14/23 Basophils # (Auto) 0.07 K/uL (0-0.2) 04/14/23 Immature Granulocyte # (Auto) 0.23 K/uL (0.01-0.20) H 04/14 Polychromasia 1+ 04/14/23 Echinocytes 1+ 04/14/23 Na 136 mmol/L (136-145) 04/14/23 K 4.5 mmol/L (3.5-5.1) 04/14/23 Cl 104 mmol/L (98-107) 04/14/23 CO2 20 mmol/L (21-32) L 04/14/23 Anion Gap 12 (3-11) H 04/14/23 BUN 27 mg/dl (6-23) H 04/14/23 Creatinine 0.97 mg/dl (0.6-1.2) 04/14/23 Estimated GFR ( Amer) 68.1 ml/min 04/14/23 Estimated GFR (Non-Af Amer) 58.8 ml/min 04/14/23 BUN/Creatinine Ratio 27.8 (10-20) H 04/14/23 Glu 117 mg/dl (70-99(Fasting)) H 04/14/23 Ca 9.7 mg/dl (8.6-10.3) 04/14/23 Total Bilirubin 1.1 mg/dl (0.2-1.0) H 04/14/23 AST 17 U/L (13-39) 04/14/23 ALT 23 U/L (7-52) 04/14/23 Alkaline Phosphatase 62 U/L (34-104) 04/14/23 TP 7.9 gm/dl (6.0-8.3) 04/14/23 Albumin 4.5 gm/dl (3.4-5.0) 04/14/23 Globulin 3.4 gm/dl (2.5-4.0) 04/14/23 Albumin/Globulin Ratio 1.3 (0.9-2) 04/14/23 Lactate Dehydrogenase Pending 04/14/23 Mg 1.6 mg/dl (1.7-2.4) L 04/14/23 06:43 Calcium Level 9.7 mg/dl (8.6-10.3) 04/14/23 08:57 Prothromb Time International Ratio 1.0 (0.9-1.1) 04/14/23 08:5 7 Diagnostic Findings (Past 24 Hours) Chest X-Ray 04/14/23 07:51 XR chest 1V portable HISTORY: leukocytosis, pericardial effusion, eval pna COMPARISON: Outside hospital chest CTA 04/13/2023. FINDINGS: The cardiac silhouette is markedly enlarged consistent with patient's known large pericardial effusion. No pneumothorax. Trace bilateral pleural effusions persist. No evidence for pulmonary edema. No new focal lung consolidations to suggest pneumonia. A few bibasilar linear densities favor subsegmental atelectasis. No acute fractures. IMPRESSION: Enlargement of the cardiac silhouette consistent with the patient's known large pericardial effusion. This is similar to the prior study. ACT 112: Negative or not required by law. Electronically signed by: Randall Lowery M.D. 04/14/2023 8:52 AM I & O Totals 24 Hours 04/13/23 04/14/23 04/15/23 06:59 06:59 06:59 Output Total 100 / 100 Balance -100 / -100 Cumulative 04/13/23 thru 04/14/23 05:57 Output Total 100 Balance -100 RT Ventilator Mngmt (Last Documented) Ventilator Ordered Settings Respiratory Rate 16 04/14/23 12:00 Ventilator - PT Measurements Respiratory Rate 16 Coding Level of Care Code 82537 IN/OBS CONSULT LVL 4,60M Diagnoses Pericardial effusion I31.39 Cardiac/pericardial tamponade I31.4
[2023-04-14] MEDS: cefTRIAXone SODIUM 2,000 MG in DEXTROSE 5% 50 ML IV SCH (12:56)
--- NOTE | 2023-04-14 13:26 | Pharmacy Report ---
Pharmacy PK ABX Note - Date of Service April 14, 2023 - Assessment and Plan Assessment 72 year old F receiving empiric vancomycin and ceftriaxone for concern of bacterial infection (bacteremia/endocarditis). Patient with large pericardial effusion + evidence of tamponade s/p emergent pericardiocentesis. Pertinent microbiologic data includes: blood x 2, chest, and pericardial fluid cultures pending. Afebrile, but does have leukocytosis and elevated procalcitonin. Day # 1 of antimicrobial therapy. Plan Vancomycin * Loading dose: 1750 mg IV x 1 * Maintenance dose: 750 mg IV every 12 hours * Regimen is predicted to achieve target AUC/PARISH of 400-600 mg/L.hr * Random level ordered for: 04/16/23 Ceftriaxone * 2 g IV q24h - appropriate, no change Pharmacy will continue to follow and will adjust dose/frequency as necessary. Thank you. Pharmacy has transitioned to AUC monitoring for vancomycin. AUC/PARISH is the preferred PK/PD target and is associated with decreased risk of nephrotoxicity compared to traditional trough targets.
[2023-04-14] MEDS ORDERED: ONDANSETRON INJ 2 MG/ML 2 ML VIAL IV PRN (14:37)
--- NOTE | 2023-04-14 14:40 | Post Operative Brief Note ---
Cardiology Brief Post Op Date of Surgery April 14, 2023 Pre & Post Diagnosis Operation Date: 04/14/23 12:00 <No data on this case meets the specified criteria> Indication: Pericardial effusion with cardiac tamponade Postoperative diagnosis: Successful pericardiocentesis for pericardial effusion with cardiac tamponade Procedure Ultrasound-guided access Pericardiocentesis Brief description: Patient was brought to the cardiac catheterization suite where she was shaved and prepped in a sterile fashion. Sedated using IV Versed and fentanyl. Soft tissues of the subxiphoid area were anesthetized using 1% lidocaine. The heart and pericardial effusion were visualized using the echo probe. Under guidance from the echo, a micropuncture needle was advanced subxiphoid and angled towards the left shoulder under constant negative pressure until the pericardial space was entered. We had pericardial fluid aspirated. A 0.014 wire was then advanced through the needle and the wire was visualized on the echo. The needle was then exchanged for a micropuncture sheath. Once the wire was removed, confirmation of pericardial placement was performed using agitated saline under echo visualization. The micropuncture sheath was then exchanged over an 0.035 J-tip wire for a 6 Swedish sheath. A pigtail drain was then advanced over the wire and visualized using fluoroscopy. The wire was removed and pericardial fluid was removed using a 60 mL syringe. This was sent to the lab for testing. Therapeutic pericardiocentesis was then performed using 60 mL syringe for aspiration until a total of 1320 mL of fluid was removed. Echo confirmed significant reduction in pericardial effusion size. The pigtail catheter was left in the pericardium and sutured externally. It was connected to a drainage tube and bag and dressed sterilely. Patient reported significant improvement in her symptoms, denied any chest pain or other concerns, and was therefore transported to recovery. This ended the case. Plastic Welding Machine Operator Conner Ribeiro MD, PhD Research Analyst Aaron Rivera Estimated Blood Loss 2 Findings Consistent with Post-Op Diagnosis 1320 mL of yellow, turbid, pericardial fluid removed. Advent of normal hemodynamics Minimal residual pericardial effusion on echo Recommendations: Pericardial fluid was sent to the laboratory for cytology, multiple cultures including AFB, viral, fungal, anaerobic and aerobic. Additional chemistries including LDH, total protein, albumin, etc. Pericardial drain will remain in place overnight. Specimens Specimen Description: 60 mL of pericardial fluid Drains Jean-Claude-Hollis Drain Anesthesia Type RN Sedation Complications None Disposition Disposition: Surgical ICU Overlapping Procedure I was present for: the critical portions of procedure. [facility] Cardiac Procedure Charge Indication for Procedure Indication for procedure: Pericardial effusion with cardiac tamponade Cardiovascular Procedure 1: Cardiovascular: 34334 Drainage of heart sac Tubes, Drains, and Vasc Access Tubes, Drains, and Vasc Access: [id number] Ultrasonic Guide For Needle Placement
--- NOTE | 2023-04-14 14:56 | Cardiac Catheterization ---
[facility] Data: Tutoring Assistant Cardiac Status Clinical evaluation leading to the procedure CAD Presenation: No Sxs, No angina Diagnostic Physicians Name: Conner Ribeiro MD, PhD Closure Device Recommendations: Medical Therapy and/or Counseling Cardiac Cath Procedure Full Procedure Date April 14, 2023 Pre-Procedure Diagnosis Pre-Procedure Diagnosis: Pericardial Disease (WITH TAMPONADE) AUC Score AUC Score: na Post-Procedure Diagnosis Post-Procedure Diagnosis: Cardiothoracic Finding (s/p pericardiocentesis) Procedure(s) Performed Procedure(s) Performed: Ultrasound Guided Vascular Access and Pericardiocentesis Hospice Liaison Conner Ribeiro MD, PhD Estimated Blood Loss Estimated Blood Loss: 2 ml Medication(s) Medication(s): Fentanyl, Lidocaine 1% and Versed Summary of Findings Brief description: Patient was brought to the cardiac catheterization suite where she was shaved and prepped in a sterile fashion. Sedated using IV Versed and fentanyl. Soft tissues of the subxiphoid area were anesthetized using 1% Xylocaine. The ultrasound was used to visualize the heart from the apical approach. A micropuncture needle was advanced with negative pressure aspiration under ultrasonic guidance from the subxiphoid area towards the left shoulder. We were able to visualize entrance into the pericardial space and there was yellow turbid pericardial fluid aspirated. Once in this position a 0.014 wire was advanced through the needle and exchanged for a micropuncture sheath. The wire was removed and confirmation of placement in the pericardial space was confirmed by agitated saline contrast injection and visualization by echo. Once confirmed, a 0.035 J-tip wire was advanced through the micropuncture sheath and the sheath was exchanged for a 6 Colombian sheath. Position of the J-wire was also visualized with fluoroscopy. Then, over this wire the 6 Colombian pigtail drain was advanced and positioned within the pericardium. We initially aspirated 60 mL of pericardial fluid into a syringe after removal of the J-wire. This was sent to the lab for further testing. Ultimately, we aspirated 1320 mL of per icardial fluid and watched the pericardial effusion shrink in size on the echocardiogram. Patient reported significant improvement in her symptoms of dyspnea and her hemodynamic status improved. We then sutured the sheath in place and attached the pericardial drain to tubing and a drainage bag. This was then sterilely dressed and covered with Tegaderm. Patient remained asymptomatic and hemodynamically stable. She was therefore returned to the recovery area with plans for admission to the ICU. This ended the case. Findings: 1. 1320 mL of yellow turbid pericardial fluid was aspirated with resolution of tamponade physiology and improvement in hemodynamic status. 2. No evidence of complication post pericardiocentesis. 3. The pigtail drain will remain in place until tomorrow morning where removal will be considered if the drainage has resolved. 4. We are awaiting results from lab evaluation of the pericardial fluid including chemistries, cytology, and cultures. Hemodynamics Rest Ao:: Invasive not performed Final Ao: Invasive not performed LV: Invasive not performed Recommendations Recommendations: Medical Therapy and/or Counseling Specimens Specimens: Pericardial fluid Radiation Exposure (mGy) 44 mGy Contrast (mls) None utilized Drains Drains: 6 Colombian pigtail drain Anesthesia 1 mg IV Versed, 50 mcg IV fentanyl Procedural Complication(s) None Disposition ICU I attest to the content of the Intraoperative Record and any orders documented therein. Any exceptions are noted below. [facility] Card Cath Procedure Codes Therapeutic Services & Ancillary Procedure 1: Cardiovascular Tx and Anc Procedures: 44581 Pericardiocentesis w / Imaging Procedure 2: Cardiovascular Tx and Anc Procedures: 07765 Ultrasonic Guidance Pericardiocentesis Moderate Sedation Procedure 1: Sedation/Anesthesia: 04282 Mod Sedation by the same physician;Init15 Min Child Age 5 & Up (Initial 15 min, start time 1054) Procedure 2: Sedation/Anesthesia: 90882 Mod Sedation by the same physician; Ea [id number] Minutes (Additional 20 min, end time 1129) PG Care Time/CCT Total # of Minutes Spent Total Time Spent with Patient: Total time spent is greater than 50% in coordination of care (as documented) at patient's floor/unit and/or counseling patient:
[2023-04-14] MEDS: ESCITALOPRAM OXALATE 10 MG TAB PO SCH (15:11)
--- NOTE | 2023-04-14 15:17 | Electrocardiogram Report ---
Test Reason : Blood Pressure : / mmHG Vent. Rate : 095 BPM Atrial Rate : 095 BPM P-R Int : 126 ms QRS Dur : 050 ms QT Int : 336 ms P-R-T Axes : 059 032 053 degrees QTc Int : 422 ms Poor data quality, interpretation may be adversely affected Normal sinus rhythm Low voltage QRS Diffuse ST abnormality TX depression lead II No previous ECGs available Confirmed by Baldo Patel ([id number]) on 04/14/2023 3:16:26 PM Referred By: Robi Potts Confirmed By:Baldo Patel
[2023-04-14] MEDS ORDERED: LORazepam 2 MG/1 ML VIAL IV STA (15:20)
--- NOTE | 2023-04-14 15:23 | Electrocardiogram Report ---
Test Reason : Blood Pressure : / mmHG Vent. Rate : 109 BPM Atrial Rate : 109 BPM P-R Int : 136 ms QRS Dur : 062 ms QT Int : 312 ms P-R-T Axes : 067 031 056 degrees QTc Int : 420 ms Sinus tachycardia Low voltage QRS Borderline ECG ality 13-APR-2023 23:12, (unconfirmed) Fusion complexes are now Present Confirmed by Baldo Patel ([id number]) on 04/14/2023 3:23:05 PM Referred By: Robi Potts Confirmed By:Baldo Patel
--- NOTE | 2023-04-14 19:09 | XRay Report ---
SINGLE VIEW CHEST CLINICAL HISTORY: Aspiration. FINDINGS: An AP, portable, upright chest radiograph is compared to study performed earlier the same d ay 04/14/2023. Correlation is made with chest CT dated 04/13/2023. The cardiac silhouette is enlarged n oting atherosclerotic calcification of the thoracic aorta. The pulmonary vasculature is noncongested. Left basilar opacities likely represent atelectasis. No large pleural effusion or pneumothorax is se en. The skeletal structures are osteopenic. The bony thorax is grossly intact. IMPRESSION: 1. Enlargement of the cardiac silhouette corresponds to a large pericardial effusion when correlated with the recent chest CT. 2. Bibasilar opacities are similar to previous and likely represent atelectasis. Clinical correlation will be required. ACT 112: Negative or not required by law. Electronically signed by: Amador Man M.D. 04/14/2023 7:08 PM
[2023-04-14] MEDS ORDERED: LORazepam 0.5 MG TAB PO STA (20:51)
[2023-04-14] MEDS ORDERED: VANCOMYCIN HCL 750 MG in SODIUM CHLORIDE 0.9% 250 ML IV SCH (21:00)
[2023-04-14] MEDS ORDERED: METOPROLOL TARTRATE 1 MG/ML VIAL IV STA ×2 (22:24→23:19)
[2023-04-14] MEDS ORDERED: METOPROLOL TARTRATE 1 MG/ML VIAL IV ONE (22:27)
[2023-04-14] MEDS ORDERED: diphenhydrAMINE Capsule 25 MG CAP PO ONE (22:29)
[2023-04-14 23:45] LABS: BUN Creatinine Ratio 26.7 (10-20); Calcium 8.8 mg/dl (8.6-10.3); Creatinine Clr Calc Pharmacy 60.1 ml/min; Est GFR (African American) 78.8 ml/min; Phosphorus 2.7 mg/dl (2.5-4.9); Potassium 4.2 mmol/L (3.5-5.1)
[2023-04-15] MEDS ORDERED: STAT IV Infusion **Titration per Protocol STA ×2 (00:02→05:12)
[2023-04-15] MEDS ORDERED: dilTIAZem HCL 125 MG in DEXTROSE 5% 100 ML IV SCH (00:15)
[2023-04-15 05:07] LABS: Hematocrit (blood only) 39.9 % (37.0-47.0); Hemoglobin 13.1 g/dl (12.0-16.0); Mean Corpuscular Hemoglobin 28.9 pg (25.0-34.0); Mean Corpuscular Hgb Conc 32.8 g/dL (32.0-36.0); Mean Corpuscular Volume 87.9 fL (80.0-100.0); Mean Platelet Volume 9.9 fL (9.4-12.4); Platelet Count 299 K/uL (130-400); RDW Coefficient of Variation 14.1 % (11.5-14.5); Red Blood Count 4.54 M/uL (4.20-5.40); White Blood Count 24.59 K/ul (4.8-10.8)
[2023-04-15] MEDS ORDERED: PLASMA-LYTE A 500 ML IV ONE (05:11)
[2023-04-15] MEDS ORDERED: AMIODARONE / D5W 150 MG/100 ML BAG IV STA (05:12)
[2023-04-15] MEDS ORDERED: 0.2 MICRON FILTER SET 1 EACH IV STA (05:12)
[2023-04-15] MEDS ORDERED: AMIODARONE IV BOLUS & DRIP IV STA (05:12)
[2023-04-15 05:22] LABS: Albumin Globulin Ratio 1.1 (0.9-2); Albumin Level 3.3 gm/dl (3.4-5.0); Bilirubin,Total 0.7 mg/dl (0.2-1.0); Calcium 8.8 mg/dl (8.6-10.3); Creatinine Clr Calc Pharmacy 53.8 ml/min; Est GFR (Non-African American) 59.5 ml/min; Magnesium 2.1 mg/dl (1.7-2.4); Potassium 4.3 mmol/L (3.5-5.1); Total Protein 6.3 gm/dl (6.0-8.3)
[2023-04-15] MEDS ORDERED: AMIODARONE / D5W 360 MG/200 ML BAG IV ONE (05:23)
[2023-04-15] MEDS ORDERED: AMIODARONE 150MG / 100ML D5W IV ONE (05:24)
[2023-04-15] MEDS ORDERED: AMIODARONE 360MG / 200ML D5W IV ONE (05:24)
[2023-04-15 05:40] LABS: Basophils # (auto) 0.06 K/uL (0-0.2); Basophils % (auto) 0.2 %; Echinocytes 2+; Immature Granulocytes # (auto) 0.41 K/uL (0.01-0.20); Immature Granulocytes % (auto) 1.7 %; Lymphocytes # (auto) 1.19 K/uL (1.2-3.4); Lymphocytes % (auto) 4.8 %; Monocytes % (auto) 8.1 %; Neutrophils # (auto) 20.93 K/uL (1.40-6.50); Neutrophils % (auto) 85.2 %
--- NOTE | 2023-04-15 07:51 | Critical Care Progress Note ---
Date of Service April 15, 2023 Assessment & Plan (1) Pericardial effusion: (2) Cardiac/pericardial tamponade: Plan Impression: 72-year-old female without significant cardiopulmonary or oncology history presents with massive pericardial effusion and evidence of early tamponade status post pericardial drain with removal of 1.3 L of serous fluid. Cytology and fluid characteristics currently pending. She is in the ICU for monitoring while the pericardial drains in place. 24-hour events: Pericardial drain put out about 200 cc over night. A-fib unresponsive to beta-blockers and calcium channel blockers, converted to sinus with amiodarone. Maintains on amiodarone infusion. Recommendations: 1. Pericardial effusion: Await fluid characterization including cytology cell count and differential, and culture data. Colchicine has been initiated by cardiology. Viral studies pending. The patient put out 200 cc overnight. Will defer follow-up echocardiogram and management of the drain to cardiology. 2. Procalcitonin has decreased from 8 on admission to 6 this morning. White blood cell count remains elevated. Gram stain on the pericardial fluid showed many white blood cells but no organisms. Cultures pending. Unclear if this could be related to viral infection, however this elevation of procalcitonin is typically associated with a bacterial rather than viral infection. Blood cultures no growth to date and pericardial studies are currently pending. Would continue antibiotics for now until cultures negative at 72 hours 3. Hold DVT prophylaxis other than SCDs pending pericardial drain removal. 4. Can resume diet unless cardiology has additional invasive procedures anticipated. 5. We will follow-up with CBC in a.m. Admission and Anticipated Discharge Date Admission Date: April 13, 2023 Subjective Patient seen and examined. EMR reviewed. The patient is awake alert conversant and eating breakfast. She states her pain is reasonably well controlled. She did go into atrial fibrillation with rapid ventricular response last evening. This was unresponsive to beta-blockers and calcium channel blockers. She converted back to sinus with amiodarone earlier this morning. She is not yet anticoagulated. She denies fevers chills or night sweats. She continues to have intermittent dry cough. No syncope or presyncope. Review of Systems Review of Systems: All systems reviewed & are unremarkable except as noted in Subjective Physical Exam Constitutional: WD/WN, vitals as above Neck: trachea midline, no thyromegaly Respiratory: normal respiratory effort, lungs clear to auscultation Cardiovascular: RRR, no murmur, no edema Gastrointestinal (Abdomen): normal bowel sounds, soft, nontender, no hepatosplenomegaly Musculoskeletal: Extremities: extremities normal to inspection Skin: no rashes, warm and dry Lymphatic: no cervical lymphadenopathy Results & Data Results & Data Vital Signs (Past 12 Hours) Vital Signs Pulse Resp BP Pulse Ox O2 Del Method O2 Flow Rate 04/15/23 06:00 96 H 26 H 92 04/15/23 06:00 101/64 04/15/23 05:31 129 H 27 H 92 04/15/23 05:31 103/58 L 04/15/23 05:30 128 H 22 92 04/15/23 05:01 71/46 L 04/15/23 05:01 118 H 33 H 87 L 04/15/23 05:00 119 H 25 H 88 L 04/15/23 04:30 139 H 23 92 04/15/23 04:00 114 H 20 91 04/15/23 04:00 99/56 L 04/15/23 03:30 88 27 H 93 04/15/23 03:30 93/54 L 04/15/23 03:00 135 H 22 93 04/15/23 03:00 97/66 L 04/15/23 02:30 96/66 L 04/15/23 02:30 137 H 20 91 04/15/23 02:00 124 H 20 92 04/15/23 01:30 90/68 L 04/15/23 01:30 135 H 20 93 04/15/23 01:15 112/79 04/15/23 01:15 134 H 21 93 04/15/23 01:00 147 H 20 94 04/15/23 01:00 109/70 04/15/23 00:45 98/69 L 04/15/23 00:45 136 H 20 94 04/15/23 00:30 105/60 04/15/23 00:30 127 H 22 95 04/15/23 00:00 130 H 22 94 04/15/23 00:00 107/68 04/14/23 23:30 94/61 L 04/14/23 23:30 144 H 20 93 04/14/23 23:44 117 H 99/72 L 04/14/23 23:00 124 H 21 95 04/14/23 23:00 81/56 L 04/14/23 22:45 95/64 L 04/14/23 22:45 138 H 22 94 04/14/23 22:38 132 H 25 H 95 04/14/23 22:38 107/74 04/14/23 22:30 147 H 25 H 93 04/14/23 22:19 122/82 04/14/23 22:19 163 H 24 93 04/14/23 22:00 101 H 25 H 94 04/14/23 22:00 114/97 04/14/23 21:30 103 H 19 95 04/14/23 21:01 129/79 04/14/23 21:01 105 H 21 94 04/14/23 21:00 104 H 31 H 92 04/14/23 20:30 101 H 22 93 04/14/23 20:00 98 H 24 94 04/14/23 22:47 137 H 81/56 L 04/14/23 22:42 159 H 122/82 04/14/23 23:29 132 H 107/69 04/14/23 22:32 159 H 122/82 04/14/23 20:00 Nasal Cannula 4 Critical Care Results & Data Vital Signs (Past 12 Hours) Vital Signs Pulse Resp BP Pulse Ox O2 Del Method O2 Flow Rate 04/15/23 06:00 96 H 26 H 92 04/15/23 06:00 101/64 04/15/23 05:31 129 H 27 H 92 04/15/23 05:31 103/58 L 04/15/23 05:30 128 H 22 92 04/15/23 05:01 71/46 L 04/15/23 05:01 118 H 33 H 87 L 04/15/23 05:00 119 H 25 H 88 L 04/15/23 04:30 139 H 23 92 04/15/23 04:00 114 H 20 91 04/15/23 04:00 99/56 L 04/15/23 03:30 88 27 H 93 04/15/23 03:30 93/54 L 04/15/23 03:00 135 H 22 93 04/15/23 03:00 97/66 L 04/15/23 02:30 96/66 L 04/15/23 02:30 137 H 20 91 04/15/23 02:00 124 H 20 92 04/15/23 01:30 90/68 L 04/15/23 01:30 135 H 20 93 04/15/23 01:15 112/79 04/15/23 01:15 134 H 21 93 04/15/23 01:00 147 H 20 94 04/15/23 01:00 109/70 04/15/23 00:45 98/69 L 04/15/23 00:45 136 H 20 94 04/15/23 00:30 105/60 04/15/23 00:30 127 H 22 95 04/15/23 00:00 130 H 22 94 04/15/23 00:00 107/68 04/14/23 23:30 94/61 L 04/14/23 23:30 144 H 20 93 04/14/23 23:44 117 H 99/72 L 04/14/23 23:00 124 H 21 95 04/14/23 23:00 81/56 L 04/14/23 22:45 95/64 L 04/14/23 22:45 138 H 22 94 04/14/23 22:38 132 H 25 H 95 04/14/23 22:38 107/74 04/14/23 22:30 147 H 25 H 93 04/14/23 22:19 122/82 04/14/23 22:19 163 H 24 93 04/14/23 22:00 101 H 25 H 94 04/14/23 22:00 114/97 04/14/23 21:30 103 H 19 95 04/14/23 21:01 129/79 04/14/23 21:01 105 H 21 94 04/14/23 21:00 104 H 31 H 92 04/14/23 20:30 101 H 22 93 04/14/23 20:00 98 H 24 94 04/14/23 22:47 137 H 81/56 L 04/14/23 22:42 159 H 122/82 04/14/23 23:29 132 H 107/69 04/14/23 22:32 159 H 122/82 04/14/23 20:00 Nasal Cannula 4 Lab & Micro Results (Past 24 Hours) RBC 4.54 M/uL (4.20-5.40) 04/15/23 WBC 24.59 K/ul (4.8-10.8) H 04/15/23 Hgb 13.1 g/dl (12.0-16.0) 04/15/23 Hct 39.9 % (37.0-47.0) 04/15/23 MCV 87.9 fL (80.0-100.0) 04/15/23 MCH 28.9 pg (25.0-34.0) 04/15/23 MCHC 32.8 g/dL (32.0-36.0) 04/15/23 RDW Standard Deviation 45.0 fL (36.4-46.3) 04/15/23 RDW Coefficient of Variation 14.1 % (11.5-14.5) 04/15/23 Plt Count 299 K/uL (130-400) 04/15/23 MPV 9.9 fL (9.4-12.4) 04/15/23 Neutrophils (%) (Auto) 85.2 % 04/15/23 Lymphocytes (%) (Auto) 4.8 % 04/15/23 Monocytes # (Auto) 2.00 K/uL (0.11-0.59) H 04/15/23 Eosinophils # (Auto) 0.00 K/uL (0-0.50) 04/15/23 Immature Granulocyte % (Auto) 1.7 % 04/15/23 Neutrophils # (Auto) 20.93 K/uL (1.40-6.50) H 04/15/23 Lymphocytes # (Auto) 1.19 K/uL (1.2-3.4) L 04/15/23 Monocytes # (Auto) 2.00 K/uL (0.11-0.59) H 04/15/23 Eosinophils # (Auto) 0.00 K/uL (0-0.50) 04/15/23 Basophils # (Auto) 0.06 K/uL (0-0.2) 04/15/23 Immature Granulocyte # (Auto) 0.41 K/uL (0.01-0.20) H 04/15 Polychromasia 1+ 04/14/23 Echinocytes 2+ 04/15/23 Na 135 mmol/L (136-145) L 04/15/23 K 4.3 mmol/L (3.5-5.1) 04/15/23 Cl 104 mmol/L (98-107) 04/15/23 CO2 25 mmol/L (21-32) 04/15/23 Anion Gap 6 (3-11) 04/15/23 BUN 24 mg/dl (6-23) H 04/15/23 Creatinine 0.96 mg/dl (0.6-1.2) 04/15/23 Estimated GFR ( Amer) 69.0 ml/min 04/15/23 Estimated GFR (Non-Af Amer) 59.5 ml/min 04/15/23 BUN/Creatinine Ratio 25.0 (10-20) H 04/15/23 Glu 109 mg/dl (70-99(Fasting)) H 04/15/23 Ca 8.8 mg/dl (8.6-10.3) 04/15/23 Phosphorus Level 3.0 mg/dl (2.5-4.9) 04/15/23 Total Bilirubin 0.7 mg/dl (0.2-1.0) 04/15/23 AST 12 U/L (13-39) L 04/15/23 ALT 14 U/L (7-52) 04/15/23 Alkaline Phosphatase 56 U/L (34-104) 04/15/23 TP 6.3 gm/dl (6.0-8.3) 04/15/23 Albumin 3.3 gm/dl (3.4-5.0) L 04/15/23 Globulin 3.0 gm/dl (2.5-4.0) 04/15/23 Albumin/Globulin Ratio 1.1 (0.9-2) 04/15/23 Lactate Dehydrogenase 155 U/L (86-244) 04/14/23 Mg 2.1 mg/dl (1.7-2.4) 04/15/23 04:46 Calcium Level 8.8 mg/dl (8.6-10.3) 04/15/23 04:46 Prothromb Time International Ratio 1.0 (0.9-1.1) 04/14/23 08:5 7 Microbiology 04/14/23 11:04 Fungal Smear - Final Chest 04/14/23 11:04 Gram Stain - Final Pericardial Fluid Diagnostic Findings (Past 24 Hours) Chest X-Ray 04/14/23 07:51 XR chest 1V portable HISTORY: leukocytosis, pericardial effusion, eval pna COMPARISON: Outside hospital chest CTA 04/13/2023. FINDINGS: The cardiac silhouette is markedly enlarged consistent with patient's known large pericardial effusion. No pneumothorax. Trace bilateral pleural effusions persist. No evidence for pulmonary edema. No new focal lung consolidations to suggest pneumonia. A few bibasilar linear densities favor subsegmental atelectasis. No acute fractures. IMPRESSION: Enlargement of the cardiac silhouette consistent with the patient's known large pericardial effusion. This is similar to the prior study. ACT 112: Negative or not required by law. Electronically signed by: Randall Lowery M.D. 04/14/2023 8:52 AM Chest X-Ray 04/14/23 18:34 SINGLE VIEW CHEST CLINICAL HISTORY: Aspiration. FINDINGS: An AP, portable, upright chest radiograph is compared to study performed earlier the same day 04/14/2023. Correlation is made with chest CT dated 04/13/2023. The cardiac silhouette is enlarged noting atherosclerotic calcification of the thoracic aorta. The pulmonary vasculature is noncongested. Left basilar opacities likely represent atelectasis. No large pleural effusion or pneumothorax is seen. The skeletal structures are osteopenic. The bony thorax is grossly intact. IMPRESSION: 1. Enlargement of the cardiac silhouette corresponds to a large pericardial effusion when correlated with the recent chest CT. 2. Bibasilar opacities are similar to previous and likely represent atelectasis. Clinical correlation will be required. ACT 112: Negative or not required by law. Electronically signed by: Amador Man M.D. 04/14/2023 7:08 PM I & O Totals 24 Hours 04/14/23 04/15/23 04/16/23 06:59 06:59 06:59 Intake Total 1758.333 / 1758.333 Output Total 100 / 100 950 / 950 Balance -100 / -100 808.333 / 808.333 Cumulative 04/13/23 thru 04/15/23 06:18 Intake Total 1758.333 Output Total 1050 Balance 708.333 RT Ventilator Mngmt (Last Documented) Ventilator Ordered Settings Respiratory Rate 26 04/15/23 06:00 Ventilator - PT Measurements Respiratory Rate 26 Coding Level of Care Code 99784 SUB INP/OBS CARE 2/35MIN Diagnoses Pericardial effusion I31.39 Cardiac/pericardial tamponade I31.4
--- NOTE | 2023-04-15 07:54 | Hospitalist Progress Note ---
Date of Service April 15, 2023 Assessment & Plan (1) Cardiac/pericardial tamponade: Plan: Patient is a 72-year-old female who presents to [facility] as a direct admit from [facility] for pericardial effusion seen on CTA. Placed on aspirin/colchicine Trop negative ECHO LV systolic function normal. No regional wma. Mild concentric LVH. EF 60- 65%. LARGE PERICARDIAL EFFUSION. RV compression during diastole. Pericardium appears moderately thickened. Cards consulted given large effusion/concerns for need for pericardiocentesis s/p pericardiocentesis this morning with Dr Ribeiro. Given leukocytosis this mroning, I checked procalcitonin which was elevated to 8, concerning for infection Blood cultures ordered and pending Orders placed for empiric abx w/ Vanco/Ceftriaxone in the meantime ICU substation operator helper consulted and alerted this morning when patient went to laboratory scientist for cardiocentesis, monitoring ICU post-op per ICU note, repeat procal in AM/consideration for consultation w/ ID pending results of fluid appreciate assistance/recommendations Fluid for analysis pending, per discussion w/ Dr Patel, concerning for malignancy w/ thickened pericardium. Did alert Dr العلي for possible need for consultation pending - to reach out if/when Repeat ECHO timing per cardiology, further recs pending fluid analysis DVT Proph: SCDs, holding chemoproph pending pericardial drain removal Repeat labs in AM (2) Pericardial effusion: Plan: as above, s/p pericardiocentesis. f/u fluid, possible need consultation ID vs hematology/oncology as above given concerns for malignancy (3) Hyperlipidemia: Plan: Resume atorvastatin (4) Hypertension: Plan: BPs borderline, will hold off amlopdine for now but can be resumed in AM. If Cr stable on repeat in AM would resume her irbesartan (5) Leukocytosis: Plan: as above, concerning for infection. CRP also elevated. unclear if viral vs bacterial, but given procal, blood cultures ordered this morning/abx as above monitor cbc on repeat Plan monitoring in ICU post-pericardiocentesis, management of drain/repeat ECHO per cardiology appreciate assistance/recs by ICU substation operator helper continue abx/monitor blood cultures and possible need ID consultation vs hematology pending pericardial fluid analysis Admission and Anticipated Discharge Date Admission Date: April 13, 2023 Results & Data Results & Data Vital Signs (Past 12 Hours) Vital Signs Pulse Resp BP Pulse Ox O2 Del Method O2 Flow Rate 04/15/23 06:00 96 H 26 H 92 04/15/23 06:00 101/64 04/15/23 05:31 129 H 27 H 92 04/15/23 05:31 103/58 L 04/15/23 05:30 128 H 22 92 04/15/23 05:01 71/46 L 04/15/23 05:01 118 H 33 H 87 L 04/15/23 05:00 119 H 25 H 88 L 04/15/23 04:30 139 H 23 92 04/15/23 04:00 114 H 20 91 04/15/23 04:00 99/56 L 04/15/23 03:30 88 27 H 93 04/15/23 03:30 93/54 L 04/15/23 03:00 135 H 22 93 04/15/23 03:00 97/66 L 04/15/23 02:30 96/66 L 04/15/23 02:30 137 H 20 91 04/15/23 02:00 124 H 20 92 04/15/23 01:30 90/68 L 04/15/23 01:30 135 H 20 93 04/15/23 01:15 112/79 04/15/23 01:15 134 H 21 93 04/15/23 01:00 147 H 20 94 04/15/23 01:00 109/70 04/15/23 00:45 98/69 L 04/15/23 00:45 136 H 20 94 04/15/23 00:30 105/60 04/15/23 00:30 127 H 22 95 04/15/23 00:00 130 H 22 94 04/15/23 00:00 107/68 04/14/23 23:30 94/61 L 04/14/23 23:30 144 H 20 93 04/14/23 23:44 117 H 99/72 L 04/14/23 23:00 124 H 21 95 04/14/23 23:00 81/56 L 04/14/23 22:45 95/64 L 04/14/23 22:45 138 H 22 94 04/14/23 22:38 132 H 25 H 95 04/14/23 22:38 107/74 04/14/23 22:30 147 H 25 H 93 04/14/23 22:19 122/82 04/14/23 22:19 163 H 24 93 04/14/23 22:00 101 H 25 H 94 04/14/23 22:00 114/97 04/14/23 21:30 103 H 19 95 04/14/23 21:01 129/79 04/14/23 21:01 105 H 21 94 04/14/23 21:00 104 H 31 H 92 04/14/23 20:30 101 H 22 93 04/14/23 20:00 98 H 24 94 04/14/23 22:47 137 H 81/56 L 04/14/23 22:42 159 H 122/82 04/14/23 23:29 132 H 107/69 04/14/23 22:32 159 H 122/82 04/14/23 20:00 Nasal Cannula 4 PG Care Time/CCT Total # of Minutes Spent Total Time Spent with Patient: Total time spent is greater than 50% in coordination of care (as documented) at patient's floor/unit and/or counseling patient: Coding Diagnoses Cardiac/pericardial tamponade I31.4 Pericardial effusion I31.39 Hyperlipidemia E78.5 Hypertension I10 Leukocytosis D72.829
[2023-04-15] MEDS: ASPIRIN 81 MG ECTAB PO SCH ×2 (08:08→20:19)
[2023-04-15] MEDS: ESCITALOPRAM OXALATE 10 MG TAB PO SCH (08:09)
[2023-04-15] MEDS: ATORVASTATIN 20 MG TAB PO SCH (08:09)
[2023-04-15] MEDS: COLCHICINE 0.6 MG TAB PO SCH ×2 (08:09→20:19)
--- NOTE | 2023-04-15 08:37 | XRay Report ---
XR chest 1V portable CLINICAL HISTORY: pericardial drain COMPARISON STUDY: Chest CT April 13, 2023. Chest radiograph April 14, 2023. FINDINGS: There is no pneumothorax. Enlargement of the cardiac silhouette is similar to chest radiogr aph April 14, 2023 at 6:55 PM. This has decreased since chest radiograph of April 14, 2023 at 8:18 AM. There is no evidence for pulmonary edema. There are are trace bilateral pleural effusions. Linear lef t basilar opacity favors atelectasis. No consolidation is identified suggest pneumonia. IMPRESSION: 1. Stable enlargement of the cardiac silhouette since prior chest radiograph. Cardiac silhouette has decreased in size since initial chest radiograph. 2. No evidence for pulmonary edema. 3. Trace bilateral pleural effusions. ACT 112: Negative or not required by law. Electronically signed by: Ze Duckworth M.D. 04/15/2023 8:35 AM
[2023-04-15] MEDS: cefTRIAXone SODIUM 2,000 MG in DEXTROSE 5% 50 ML IV SCH (11:14)
[2023-04-15] MEDS: AMIODARONE / D5W 360 MG/200 ML BAG IV SCH ×2 (11:17→23:17)
--- NOTE | 2023-04-15 12:20 | Cardiology Progress Note ---
Date of Service April 15, 2023 Assessment & Plan (1) Pericardial effusion: Plan: -1320 cc of fluid removed with pericardiocentesis yesterday. -fortunately, cytology negative for malignancy. -all other fluid studies pending. -remains on colchicine. -pericardium thickened on echocardiogram. (2) PAF (paroxysmal atrial fibrillation): Plan: -developed atrial fibrillation with a rapid ventricular response last evening. -converted to sinus rhythm on intravenous amiodarone. -consider long-term use of amiodarone. -consider long-term anticoagulation once stable. Admission and Anticipated Discharge Date Admission Date: April 13, 2023 Subjective The patient is resting comfortably in the bedside chair without complaints of chest pain or dyspnea. She does a nonproductive cough. Her is present for our discussion. Physical Exam Physical Exam: In general is well-developed well-nourished white female no acute distress. HEENT exam is negative. Neck is supple with full carotid upstrokes. There are no carotid bruits. Jugular venous pressure is flat at 90. There is no thyromegaly. Cardiovascular exam reveals a regular rhythm with distant heart sounds. No obvious murmurs. Lungs are clear without rales, rhonchi or wheeze. Abdomen is soft without bruits. Extremities reveal intact radial artery pulses bilaterally. There is no peripheral edema. Results & Data Vital Signs (Past 12 Hours) Vital Signs Temp Pulse Resp BP Pulse Ox O2 Del Method O2 Flow Rate 04/15/23 11:00 96 H 28 H 93 04/15/23 10:31 124/67 04/15/23 10:31 93 H 29 H 94 04/15/23 10:30 93 H 28 H 94 04/15/23 10:00 92 H 27 H 94 04/15/23 10:00 109/69 04/15/23 09:31 100/80 04/15/23 09:31 92 H 26 H 94 04/15/23 09:30 89 17 94 04/15/23 09:00 93 H 25 H 94 04/15/23 09:00 120/64 04/15/23 08:30 93 H 27 H 94 04/15/23 08:30 110/68 04/15/23 08:00 93 H 27 H 94 04/15/23 08:00 111/69 04/15/23 07:31 97 H 27 H 96 04/15/23 07:31 106/73 04/15/23 07:30 96 H 19 94 04/15/23 07:02 93 H 18 94 04/15/23 07:02 98/71 L 04/15/23 07:00 94 H 29 H 92 04/15/23 06:30 89 23 94 04/15/23 06:30 117/65 04/15/23 08:15 37.5 C 04/15/23 08:15 Nasal Cannula 4 04/15/23 06:00 96 H 26 H 92 04/15/23 06:00 101/64 04/15/23 05:31 129 H 27 H 92 04/15/23 05:31 103/58 L 04/15/23 05:30 128 H 22 92 04/15/23 05:01 71/46 L 04/15/23 05:01 118 H 33 H 87 L 04/15/23 05:00 119 H 25 H 88 L 04/15/23 04:30 139 H 23 92 04/15/23 04:00 114 H 20 91 04/15/23 04:00 99/56 L 04/15/23 03:30 88 27 H 93 04/15/23 03:30 93/54 L 04/15/23 03:00 135 H 22 93 04/15/23 03:00 97/66 L 04/15/23 02:30 96/66 L 04/15/23 02:30 137 H 20 91 04/15/23 02:00 124 H 20 92 04/15/23 01:30 90/68 L 04/15/23 01:30 135 H 20 93 04/15/23 01:15 112/79 04/15/23 01:15 134 H 21 93 04/15/23 01:00 147 H 20 94 04/15/23 01:00 109/70 04/15/23 00:45 98/69 L 04/15/23 00:45 136 H 20 94 04/15/23 00:30 105/60 04/15/23 00:30 127 H 22 95 Diagnostic Findings Developed atrial fibrillation a rapid ventricular response approximately 11:30 p.m. last evening. Converted to sinus rhythm on amiodarone at 7:00 a.m. PG Care Time/CCT Total # of Minutes Spent Total Time Spent with Patient: Total time spent is greater than 50% in coordination of care (as documented) at patient's floor/unit and/or counseling patient: Coding Level of Care Code 61382 SUB INP/OBS CARE MIN Diagnoses Pericardial effusion I31.39 PAF (paroxysmal atrial fibrillation) I48.0
--- NOTE | 2023-04-15 13:29 | Hospitalist Progress Note ---
Date of Service April 15, 2023 Assessment & Plan (1) Cardiac/pericardial tamponade: Plan: Patient with neutrophil predominance pericardial effusion with noted leukocytosis and elevated procalcitonin - Blood cultures remain with NGTD - Pericardial fluid cultures pending - Cytology with negative gram stain and with neutrophils- non-malignant - Continue drain as per Cardiology recommendations - Continue Colchicine per Cardiology recommendations - Would inquire of when to repeat ECHO to ensure resolution (2) Pericardial effusion: Plan: As above cause of #1 (3) Afib: Plan: Acute in setting of pericardial effusion - currently in NSR on Amiodarone - Follow - consider anticoagulation needs for stroke prevention following drain removal (4) Headache: Plan: Bifrontal squeezing/sharp terminating behind left eye - Likely related to tension/stress - Tylenol PRN - She is without meningismus signs and no further neurological deficits - She does report having to sit up and forward to relieve her chest pain and breathing prior to coming to EMD (5) Hyperlipidemia: Plan: Continue statin - chronic no acute needs (6) Hypertension: Plan: Chronic- well controlled- Current agents on hold until hemodyanmics proven stable (7) Leukocytosis: Plan: As above- continue empiric abx - Rocephin while blood and pericardial fluid cultures are pending Admission and Anticipated Discharge Date Admission Date: April 13, 2023 Supervising Physician Co-Signing Physician Notes TERMINAL WORKER Supervision Note: I did not personally see or examine the patient. I verified all zuniga points and agree with Papito LEGGETT with the following exceptions and/or additions: none; maintain pericardial drain, appreciate Cardiology recs, cont amiodarone for new AFin, no AC for now but continue to monitor. Hospitalist service will follow along while patient in ICU. Subjective Patient HD #2 following admission for pericardial effusion that had hemodynamic effects of compression of RV on ECHO. Patient underwent Pericardial drainage by interventional cardiology. She initially underwent drainage of 1320 ml of fluid, drain was placed to hemovac and patient was transitioned to the ICU- with appropriate cytology and cultures ordered. Overnight events noted for Afib with RVR for which she was initiated on IV amiodarone infusion as she did not respond to IV BB or CCB administration. Currently in NSR. She does endorse bi- frontal headache to the back of her eyes, she denies any history of migraines, is not associated with any rhinorrhea and negative meningismus signs. Culture data reviewed notable for neutrophil predominance leukocytosis and negative gram stain- Other cytology/culture data pending. So at least at this time known not to be malignant. CODE: FULL Physical Exam Constitutional: WD/WN, vitals as above Psychiatric: A+Ox3, euthymic affect Results & Data Results & Data Vital Signs (Past 12 Hours) Vital Signs Temp Pulse Resp BP Pulse Ox O2 Del Method O2 Flow Rate 04/15/23 12:01 101 H 25 H 94 04/15/23 12:01 119/64 04/15/23 12:00 99 H 22 96 04/15/23 11:30 96 H 21 93 04/15/23 11:00 140/88 04/15/23 12:17 37 C 04/15/23 11:00 96 H 28 H 93 04/15/23 10:31 124/67 04/15/23 10:31 93 H 29 H 94 04/15/23 10:30 93 H 28 H 94 04/15/23 10:00 92 H 27 H 94 04/15/23 10:00 109/69 04/15/23 09:31 100/80 04/15/23 09:31 92 H 26 H 94 04/15/23 09:30 89 17 94 04/15/23 09:00 93 H 25 H 94 04/15/23 09:00 120/64 04/15/23 08:30 93 H 27 H 94 04/15/23 08:30 110/68 04/15/23 08:00 93 H 27 H 94 04/15/23 08:00 111/69 04/15/23 07:31 97 H 27 H 96 04/15/23 07:31 106/73 04/15/23 07:30 96 H 19 94 04/15/23 07:02 93 H 18 94 04/15/23 07:02 98/71 L 04/15/23 07:00 94 H 29 H 92 04/15/23 06:30 89 23 94 04/15/23 06:30 117/65 04/15/23 08:15 37.5 C 04/15/23 08:15 Nasal Cannula 4 04/15/23 06:00 96 H 26 H 92 04/15/23 06:00 101/64 07/19/23 05:31 129 H 27 H 92 07/19/23 05:31 103/58 L 04/15/23 05:30 128 H 22 92 04/15/23 05:01 71/46 L 04/15/23 05:01 118 H 33 H 87 L 04/15/23 05:00 119 H 25 H 88 L 04/15/23 04:30 139 H 23 92 04/15/23 04:00 114 H 20 91 04/15/23 04:00 99/56 L 04/15/23 03:30 88 27 H 93 04/15/23 03:30 93/54 L 04/15/23 03:00 135 H 22 93 04/15/23 03:00 97/66 L 04/15/23 02:30 96/66 L 04/15/23 02:30 137 H 20 91 04/15/23 02:00 124 H 20 92 04/15/23 01:30 90/68 L 04/15/23 01:30 135 H 20 93 Laboratory Results Abnormal lab results 04/14/23 04/15/23 04/15/23 Range/Units 22:55 04:46 04:46 WBC 24.59 H (4.8-10.8) K/ul Neut # (Auto) 20.93 H (1.40-6.50) K/uL Lymph # (Auto) 1.19 L (1.2-3.4) K/uL Pender # (Auto) 2.00 H (0.11-0.59) K/uL Immature Gran # (Auto) 0.41 H (0.01-0.20) K/uL Sodium 134 L 135 L (136-145) mmol/L BUN 24 H (6-23) mg/dl BUN/Creatinine Ratio 26.7 H 25.0 H (10-20) Glucose 124 H 109 H (70-99(Fasting)) mg/dl AST 12 L (13-39) U/L Albumin 3.3 L (3.4-5.0) gm/dl Procalcitonin (0-0.5) ng/ml 04/15/23 Range/Units 04:46 WBC (4.8-10.8) K/ul Neut # (Auto) (1.40-6.50) K/uL Lymph # (Auto) (1.2-3.4) K/uL Pender # (Auto) (0.11-0.59) K/uL Immature Gran # (Auto) (0.01-0.20) K/uL Sodium (136-145) mmol/L BUN (6-23) mg/dl BUN/Creatinine Ratio (10-20) Glucose (70-99(Fasting)) mg/dl AST (13-39) U/L Albumin (3.4-5.0) gm/dl Procalcitonin 6.46 H (0-0.5) ng/ml Diagnostic Findings Chest X-Ray 04/14/23 07:51 XR chest 1V portable HISTORY: leukocytosis, pericardial effusion, eval pna COMPARISON: Outside hospital chest CTA 04/13/2023. FINDINGS: The cardiac silhouette is markedly enlarged consistent with patient's known large pericardial effusion. No pneumothorax. Trace bilateral pleural effusions persist. No evidence for pulmonary edema. No new focal lung consolidations to suggest pneumonia. A few bibasilar linear densities favor subsegmental atelectasis. No acute fractures. IMPRESSION: Enlargement of the cardiac silhouette consistent with the patient's known large pericardial effusion. This is similar to the prior study. ACT 112: Negative or not required by law. Electronically signed by: Randall Lowery M.D. 04/14/2023 8:52 AM Chest X-Ray 04/14/23 18:34 SINGLE VIEW CHEST CLINICAL HISTORY: Aspiration. FINDINGS: An AP, portable, upright chest radiograph is compared to study performed earlier the same day 04/14/2023. Correlation is made with chest CT dated 04/13/2023. The cardiac silhouette is enlarged noting atherosclerotic calcification of the thoracic aorta. The pulmonary vasculature is noncongested. Left basilar opacities likely represent atelectasis. No large pleural effusion or pneumothorax is seen. The skeletal structures are osteopenic. The bony thorax is grossly intact. IMPRESSION: 1. Enlargement of the cardiac silhouette corresponds to a large pericardial effusion when correlated with the recent chest CT. 2. Bibasilar opacities are similar to previous and likely represent atelectasis. Clinical correlation will be required. ACT 112: Negative or not required by law. Electronically signed by: Amador Man M.D. 04/14/2023 7:08 PM Chest X-Ray 04/15/23 07:00 XR chest 1V portable CLINICAL HISTORY: pericardial drain COMPARISON STUDY: Chest CT April 13, 2023. Chest radiograph April 14, 2023. FINDINGS: There is no pneumothorax. Enlargement of the cardiac silhouette is similar to chest radiograph April 14, 2023 at 6:55 PM. This has decreased since chest radiograph of April 14, 2023 at 8:18 AM. There is no evidence for pulmonary edema. There are are trace bilateral pleural effusions. Linear left basilar opacity favors atelectasis. No consolidation is identified suggest pneumonia. IMPRESSION: 1. Stable enlargement of the cardiac silhouette since prior chest radiograph. Cardiac silhouette has decreased in size since initial chest radiograph. 2. No evidence for pulmonary edema. 3. Trace bilateral pleural effusions. ACT 112: Negative or not required by law. Electronically signed by: Ze Duckworth M.D. 04/15/2023 8:35 AM Medications Administered Chest X-Ray 04/14/23 07:51 XR chest 1V portable HISTORY: leukocytosis, pericardial effusion, eval pna COMPARISON: Outside hospital chest CTA 04/13/2023. FINDINGS: The cardiac silhouette is markedly enlarged consistent with patient's known large pericardial effusion. No pneumothorax. Trace bilateral pleural effusions persist. No evidence for pulmonary edema. No new focal lung consolidations to suggest pneumonia. A few bibasilar linear densities favor subsegmental atelectasis. No acute fractures. IMPRESSION: Enlargement of the cardiac silhouette consistent with the patient's known large pericardial effusion. This is similar to the prior study. ACT 112: Negative or not required by law. Electronically signed by: Randall Lowery M.D. 04/14/2023 8:52 AM Chest X-Ray 04/14/23 18:34 SINGLE VIEW CHEST CLINICAL HISTORY: Aspiration. FINDINGS: An AP, portable, upright chest radiograph is compared to study performed earlier the same day 04/14/2023. Correlation is made with chest CT dated 04/13/2023. The cardiac silhouette is enlarged noting atherosclerotic calcification of the thoracic aorta. The pulmonary vasculature is noncongested. Left basilar opacities likely represent atelectasis. No large pleural effusion or pneumothorax is seen. The skeletal structures are osteopenic. The bony thorax is grossly intact. IMPRESSION: 1. Enlargement of the cardiac silhouette corresponds to a large pericardial effusion when correlated with the recent chest CT. 2. Bibasilar opacities are similar to previous and likely represent atelectasis. Clinical correlation will be required. ACT 112: Negative or not required by law. Electronically signed by: Amador Man M.D. 04/14/2023 7:08 PM Chest X-Ray 04/15/23 07:00 XR chest 1V portable CLINICAL HISTORY: pericardial drain COMPARISON STUDY: Chest CT April 13, 2023. Chest radiograph April 14, 2023. FINDINGS: There is no pneumothorax. Enlargement of the cardiac silhouette is similar to chest radiograph April 14, 2023 at 6:55 PM. This has decreased since chest radiograph of April 14, 2023 at 8:18 AM. There is no evidence for pulmonary edema. There are are trace bilateral pleural effusions. Linear left basilar opacity favors atelectasis. No consolidation is identified suggest pneumonia. IMPRESSION: 1. Stable enlargement of the cardiac silhouette since prior chest radiograph. Cardiac silhouette has decreased in size since initial chest radiograph. 2. No evidence for pulmonary edema. 3. Trace bilateral pleural effusions. ACT 112: Negative or not required by law. Electronically signed by: Ze Duckworth M.D. 04/15/2023 8:35 AM PG Care Time/CCT Total # of Minutes Spent Total Time Spent with Patient: Total time spent is greater than 50% in coordination of care (as documented) at patient's floor/unit and/or counseling patient: Coding Level of Care Code 46473 SUB INP/OBS CARE 3/50MIN Medical Decision Making High Complexity Diagnoses Cardiac/pericardial tamponade I31.4 Pericardial effusion I31.39 Afib I48.91 Headache R51.9 Hyperlipidemia E78.5 Hypertension I10 Leukocytosis D72.829
[2023-04-15] MEDS: ACETAMINOPHEN 500 MG TAB PO PRN (14:15)
--- NOTE | 2023-04-15 14:51 | Electrocardiogram Report ---
Test Reason : Blood Pressure : / mmHG Vent. Rate : 159 BPM Atrial Rate : 144 BPM P-R Int : 000 ms QRS Dur : 068 ms QT Int : 270 ms P-R-T Axes : 000 007 039 degrees QTc Int : 439 ms Atrial fibrillation with rapid ventricular response Low voltage QRS Cannot rule out Inferior infarct , age undetermined Cannot rule out Anterior infarct , age undetermined Abnormal ECG When compared with ECG of 14-APR-2023 08:58, Atrial fibrillation has replaced Sinus rhythm Minimal criteria for Anterior infarct are now Present Minimal criteria for Inferior infarct are now Present Confirmed by Baldo Patel ([id number]) on 04/15/2023 2:50:32 PM Referred By: Robi Potts Confirmed By:Baldo Patel
[2023-04-15] MEDS ORDERED: DAPTOmycin 750 MG in SYRINGE 0 ML IV ONE (19:45)
[2023-04-16 05:13] LABS: Hematocrit (blood only) 40.3 % (37.0-47.0); Hemoglobin 13.4 g/dl (12.0-16.0); Mean Corpuscular Hemoglobin 28.4 pg (25.0-34.0); Mean Corpuscular Hgb Conc 33.3 g/dL (32.0-36.0); Mean Corpuscular Volume 85.4 fL (80.0-100.0); Mean Platelet Volume 9.8 fL (9.4-12.4); Platelet Count 299 K/uL (130-400); RDW Coefficient of Variation 13.9 % (11.5-14.5); RDW Standard Deviation 43.7 fL (36.4-46.3); Red Blood Count 4.72 M/uL (4.20-5.40); White Blood Count 24.01 K/ul (4.8-10.8)
[2023-04-16 05:24] LABS: Magnesium 1.9 mg/dl (1.7-2.4); Phosphorus 2.3 mg/dl (2.5-4.9)
[2023-04-16 05:33] LABS: Basophils # (auto) 0.06 K/uL (0-0.2); Basophils % (auto) 0.2 %; Echinocytes 2+; Eosinophils # (auto) 0.02 K/uL (0-0.50); Eosinophils % (auto) 0.1 %; Immature Granulocytes # (auto) 0.46 K/uL (0.01-0.20); Immature Granulocytes % (auto) 1.9 %; Lymphocytes # (auto) 1.25 K/uL (1.2-3.4); Lymphocytes % (auto) 5.2 %; Monocytes # (auto) 1.78 K/uL (0.11-0.59); Monocytes % (auto) 7.4 %; Neutrophils # (auto) 20.44 K/uL (1.40-6.50); Neutrophils % (auto) 85.2 %
--- NOTE | 2023-04-16 05:35 | Billing Data ---
Date of Service April 16, 2023 Coding Level of Care Code 44710 INT INP/OBS CARE
[2023-04-16] MEDS ORDERED: MAGNESIUM SULFATE / D5W 1 GM/100 ML BAG IV ONE (06:30)
--- NOTE | 2023-04-16 07:44 | XRay Report ---
SINGLE VIEW CHEST CLINICAL HISTORY: Pericardial effusion with pericardial drain. FINDINGS: An AP, portable, upright chest radiograph is compared to study dictated 04/15/2023. Correlat ion is made with chest CT dated 04/13/2023. The cardiac silhouette is enlarged noting atherosclerotic calcification of the thoracic aorta. A pericardial drain projects over the left heart border. The pul monary vasculature is noncongested. Suspected left pleural effusion with left basilar consolidation. No pneumothorax is seen. The skeletal structures are osteopenic. The bony thorax is grossly intact. IMPRESSION: 1. Enlargement of the cardiac silhouette is similar to yesterday and corresponds to a pericardial eff usion when correlated with the recent chest CT. A pericardial drain projects over the left heart bord er. 2. Suspect a left pleural effusion with left basilar consolidation. ACT 112: Negative or not required by law. Electronically signed by: Amador Man M.D. 04/16/2023 7:43 AM
[2023-04-16] MEDS: COLCHICINE 0.6 MG TAB PO SCH ×2 (07:48→19:40)
[2023-04-16] MEDS: ASPIRIN 81 MG ECTAB PO SCH ×2 (07:48→19:39)
[2023-04-16] MEDS: ATORVASTATIN 20 MG TAB PO SCH (07:48)
[2023-04-16] MEDS: ESCITALOPRAM OXALATE 10 MG TAB PO SCH (07:49)
[2023-04-16 08:47] LABS: Albumin Level 2.9 gm/dl (3.4-5.0); Bilirubin,Total 0.5 mg/dl (0.2-1.0); Calcium 8.4 mg/dl (8.6-10.3); Potassium 3.6 mmol/L (3.5-5.1)
[2023-04-16 08:56] LABS: Albumin Globulin Ratio 0.9 (0.9-2); BUN Creatinine Ratio 19.4 (10-20); Creatinine Clr Calc Pharmacy 79.4 ml/min; Est GFR (African American) 105.1 ml/min; Est GFR (Non-African American) 90.7 ml/min; Globulin 3.1 gm/dl (2.5-4.0)
--- NOTE | 2023-04-16 09:04 | Critical Care Progress Note ---
Date of Service April 16, 2023 Assessment & Plan (1) Pericardial effusion: (2) Cardiac/pericardial tamponade: Plan Impression: 72-year-old female without significant cardiopulmonary or oncology history presents with massive pericardial effusion and evidence of early tamponade status post pericardial drain with removal of 1.3 L of serous fluid. Cytology shows no malignancy but sheets of neutrophils. Discussed with the lab. Pericardial fluids are send out to [facility] and will likely not been available for an additional 3 to 5 days. 24-hour events: Pericardial drain put out about 25 cc over night. Remains in sinus on amiodarone infusion. She did receive a dose of vancomycin which I think can be discontinued given the fact that we have not seen gram-positive cocci in the Gram stain. Recommendations: 1. Pericardial effusion: Unfortunately it appears we will not have the fluid characteristics available for an additional 2 to 3 days. Viral studies pending. The patient put out 200 cc overnight. We will need to discuss with cardiology what the endpoint is at this point time (continue drainage versus pericardial drain versus discontinue drain and clinical follow-up). 2. Procalcitonin has decreased from 8 on admission to 6 this morning. White blood cell count remains elevated. Gram stain on the pericardial fluid showed many white blood cells but no organisms. Cultures negative to date including AFB stains and cultures. Unclear if this could be related to viral infection, however this elevation of procalcitonin is typically associated with a bacterial rather than viral infection. Blood cultures no growth to date and pericardial studies are currently pending. Will discuss with cardiology need for potential long-term antimicrobial therapy. 3. Atrial fibrillation: Suspect this is related to the pericardial drain. She has converted to sinus rhythm with amiodarone. Anticoagulation is being withheld currently given her pericardial drain and large pericardial effusion. Can likely transition to oral amiodarone and will defer to cardiology whether or not this medication is required in the long-term or not. 4. Can resume diet unless cardiology has additional invasive procedures anticipated. 5. We will follow-up with CBC in a.m. Patient will remain in the intensive care unit as long as the pericardial drain is in place. She was discussed on multidisciplinary rounds. Admission and Anticipated Discharge Date Admission Date: April 13, 2023 Subjective Patient seen and examined. EMR reviewed. Discussed with bedside critical care nurse. The patient is doing well this morning. And she does complain of some occasional wheezing which she has noted first thing in the morning. She does not use inhalers at home. She is not coughing or expectorating phlegm. Her pain from the pericardial drain is well controlled. She is not having any syncope or presyncope. She was able to get up to the chair yesterday. She has not reported any new skin rashes or lesions. Review of Systems Review of Systems: All systems reviewed & are unremarkable except as noted in Subjective Physical Exam Constitutional: WD/WN, vitals as above Neck: trachea midline, no thyromegaly Respiratory: normal respiratory effort, lungs clear to auscultation Cardiovascular: RRR, no murmur, no edema Gastrointestinal (Abdomen): normal bowel sounds, soft, nontender, no hepatosplenomegaly Musculoskeletal: Extremities: extremities normal to inspection Skin: no rashes, warm and dry Lymphatic: no cervical lymphadenopathy Results & Data Results & Data Vital Signs (Past 12 Hours) Vital Signs Temp Pulse Resp BP Pulse Ox 04/16/23 08:30 95 H 28 H 94 04/16/23 08:00 96 H 31 H 94 04/16/23 08:00 116/75 04/16/23 07:30 102 H 19 95 04/16/23 07:00 96 H 30 H 94 04/16/23 07:00 115/68 04/16/23 06:30 95 H 26 H 94 04/16/23 07:46 37.6 C H 04/16/23 06:00 94 H 25 H 96 04/16/23 06:00 144/66 H 04/16/23 05:00 93 H 30 H 96 04/16/23 05:00 139/70 04/16/23 04:00 93 H 33 H 93 04/16/23 04:00 111/68 04/16/23 03:00 97 H 29 H 95 04/16/23 03:00 123/70 04/16/23 02:00 92 H 31 H 94 04/16/23 02:00 122/73 04/16/23 01:00 89 26 H 95 04/16/23 01:00 133/69 04/16/23 00:00 92 H 28 H 94 04/16/23 00:00 120/72 04/15/23 23:00 95 H 27 H 93 04/15/23 22:30 93 H 29 H 94 04/15/23 22:00 94 H 23 92 04/15/23 21:30 88 30 H 94 04/15/23 21:01 92 H 21 95 04/15/23 21:01 114/77 04/15/23 21:00 91 H 21 95 Chest tube output only 25 cc over the last shift Critical Care Results & Data Vital Signs (Past 12 Hours) Vital Signs Temp Pulse Resp BP Pulse Ox 04/16/23 08:30 95 H 28 H 94 04/16/23 08:00 96 H 31 H 94 04/16/23 08:00 116/75 04/16/23 07:30 102 H 19 95 04/16/23 07:00 96 H 30 H 94 04/16/23 07:00 115/68 04/16/23 06:30 95 H 26 H 94 04/16/23 07:46 37.6 C H 04/16/23 06:00 94 H 25 H 96 04/16/23 06:00 144/66 H 04/16/23 05:00 93 H 30 H 96 04/16/23 05:00 139/70 04/16/23 04:00 93 H 33 H 93 04/16/23 04:00 111/68 04/16/23 03:00 97 H 29 H 95 04/16/23 03:00 123/70 04/16/23 02:00 92 H 31 H 94 04/16/23 02:00 122/73 04/16/23 01:00 89 26 H 95 04/16/23 01:00 133/69 04/16/23 00:00 92 H 28 H 94 04/16/23 00:00 120/72 04/15/23 23:00 95 H 27 H 93 04/15/23 22:30 93 H 29 H 94 04/15/23 22:00 94 H 23 92 04/15/23 21:30 88 30 H 94 04/15/23 21:01 92 H 21 95 04/15/23 21:01 114/77 04/15/23 21:00 91 H 21 95 Lab & Micro Results (Past 24 Hours) RBC 4.72 M/uL (4.20-5.40) 04/16/23 WBC 24.01 K/ul (4.8-10.8) H 04/16/23 Hgb 13.4 g/dl (12.0-16.0) 04/16/23 Hct 40.3 % (37.0-47.0) 04/16/23 MCV 85.4 fL (80.0-100.0) 04/16/23 MCH 28.4 pg (25.0-34.0) 04/16/23 MCHC 33.3 g/dL (32.0-36.0) 04/16/23 RDW Standard Deviation 43.7 fL (36.4-46.3) 04/16/23 RDW Coefficient of Variation 13.9 % (11.5-14.5) 04/16/23 Plt Count 299 K/uL (130-400) 04/16/23 MPV 9.8 fL (9.4-12.4) 04/16/23 Neutrophils (%) (Auto) 85.2 % 04/16/23 Lymphocytes (%) (Auto) 5.2 % 04/16/23 Monocytes # (Auto) 1.78 K/uL (0.11-0.59) H 04/16/23 Eosinophils # (Auto) 0.02 K/uL (0-0.50) 04/16/23 Immature Granulocyte % (Auto) 1.9 % 04/16/23 Neutrophils # (Auto) 20.44 K/uL (1.40-6.50) H 04/16/23 Lymphocytes # (Auto) 1.25 K/uL (1.2-3.4) 04/16/23 Monocytes # (Auto) 1.78 K/uL (0.11-0.59) H 04/16/23 Eosinophils # (Auto) 0.02 K/uL (0-0.50) 04/16/23 Basophils # (Auto) 0.06 K/uL (0-0.2) 04/16/23 Immature Granulocyte # (Auto) 0.46 K/uL (0.01-0.20) H 04/16 Echinocytes 2+ 04/16/23 Na 136 mmol/L (136-145) 04/16/23 K 3.6 mmol/L (3.5-5.1) 04/16/23 Cl 105 mmol/L (98-107) 04/16/23 CO2 22 mmol/L (21-32) 04/16/23 Anion Gap 9 (3-11) 04/16/23 BUN 12 mg/dl (6-23) 04/16/23 Creatinine 0.62 mg/dl (0.6-1.2) 04/16/23 Estimated GFR ( Amer) 105.1 ml/min 04/16/23 Estimated GFR (Non-Af Amer) 90.7 ml/min 04/16/23 BUN/Creatinine Ratio 19.4 (10-20) 04/16/23 Glu 109 mg/dl (70-99(Fasting)) H 04/16/23 Ca 8.4 mg/dl (8.6-10.3) L 04/16/23 Phosphorus Level 2.3 mg/dl (2.5-4.9) L 04/16/23 Total Bilirubin 0.5 mg/dl (0.2-1.0) 04/16/23 AST 35 U/L (13-39) 04/16/23 ALT 38 U/L (7-52) 04/16/23 Alkaline Phosphatase 102 U/L (34-104) 04/16/23 TP 6.0 gm/dl (6.0-8.3) 04/16/23 Albumin 2.9 gm/dl (3.4-5.0) L 04/16/23 Globulin 3.1 gm/dl (2.5-4.0) 04/16/23 Albumin/Globulin Ratio 0.9 (0.9-2) 04/16/23 Mg 1.9 mg/dl (1.7-2.4) 04/16/23 04:40 Calcium Level 8.4 mg/dl (8.6-10.3) L 04/16/23 04:40 Microbiology 04/14/23 11:04 Gram Stain - Final Pericardial Fluid Aerobic and Anaerobic Culture - Preliminary No growth to date. 04/14/23 08:57 Aerobic Blood Culture - Preliminary Blood No growth in Aerobic bottle after 24 hours. Anaerobic Blood Culture - Preliminary No growth in Anaerobic bottle after 24 hours. 04/14/23 08:57 Aerobic Blood Culture - Preliminary Blood No growth in Aerobic bottle after 24 hours. Anaerobic Blood Culture - Preliminary No growth in Anaerobic bottle after 24 hours. 04/14/23 11:04 Acid Fast Bacilli Smear - Final Pericardial Fluid Diagnostic Findings (Past 24 Hours) Chest X-Ray 04/16/23 07:00 SINGLE VIEW CHEST CLINICAL HISTORY: Pericardial effusion with pericardial drain. FINDINGS: An AP, portable, upright chest radiograph is compared to study dictated 04/15/2023. Correlation is made with chest CT dated 04/13/2023. The cardiac silhouette is enlarged noting atherosclerotic calcification of the thoracic aorta. A pericardial drain projects over the left heart border. The pulmonary vasculature is noncongested. Suspected left pleural effusion with left basilar consolidation. No pneumothorax is seen. The skeletal structures are osteopenic. The bony thorax is grossly intact. IMPRESSION: 1. Enlargement of the cardiac silhouette is similar to yesterday and corresponds to a pericardial effusion when correlated with the recent chest CT. A pericardial drain projects over the left heart border. 2. Suspect a left pleural effusion with left basilar consolidation. ACT 112: Negative or not required by law. Electronically signed by: Amador Man M.D. 04/16/2023 7:43 AM I & O Totals 24 Hours 04/15/23 04/16/23 04/17/23 06:59 06:59 06:59 Intake Total 1758.333 / 1758.333 960 / 960 Output Total 950 / 950 45 / 45 Balance 808.333 / 808.333 915 / 915 Cumulative 04/13/23 thru 04/16/23 06:42 Intake Total 2718.333 Output Total 1095 Balance 1623.333 RT Ventilator Mngmt (Last Documented) Ventilator Ordered Settings Respiratory Rate 28 04/16/23 08:30 Ventilator - PT Measurements Respiratory Rate 28 Coding Level of Care Code 69424 SUB INP/OBS CARE 3/50MIN Diagnoses Pericardial effusion I31.39 Cardiac/pericardial tamponade I31.4
[2023-04-16] MEDS ORDERED: VANCOMYCIN HCL 1,000 MG in SODIUM CHLORIDE 0.9% 250 ML IV ONE (10:15)
[2023-04-16] MEDS: cefTRIAXone SODIUM 2,000 MG in DEXTROSE 5% 50 ML IV SCH (10:56)
[2023-04-16] MEDS ORDERED: VANCOMYCIN CONSULT ACTIVE PRN (11:03)
[2023-04-16] MEDS ORDERED: FAMOTIDINE 20 MG in SYRINGE 3 ML IV ONE (11:15)
[2023-04-16] MEDS ORDERED: diphenhydrAMINE 50 MG/ML VIAL IV ONE (11:15)
[2023-04-16] MEDS: ACETAMINOPHEN 500 MG TAB PO PRN (11:21)
--- NOTE | 2023-04-16 12:41 | Infectious Disease Consult ---
Date of Consultation April 16, 2023 Assessment & Plan (1) Pericardial effusion: Plan Micro: 04/14 Lyme screen: negative 04/14 MRSA nares: negative 04/14 Pericardial fluid (before antibiotics) -Routine cx: pending. GS--no organisms -Fungal smear neg, cx pending -AFB smear neg, cx pending -Viral cx: pending (Adenovirus, CMV, Enterovirus, HSV 1/2, VZV) 04/14 BCx x2: NGTD Abx: Vanc 04/14 - present Ceftriaxone 2 g 04/14 - present Dapto 04/15 Problems: #Pericardial effusion #Leukocytosis 72 yo F with history of HTN, HLD who was direct admit from [facility] on 04/13 for pericardial effusion. Pt reports she began having shortness of breath on 04/12 PM. She was seen by her PCP chest pain, shortness of breath, nonproductive cough, and this was thought to be a viral syndrome. On 04/13, she had more difficulty breathing and pain with inspiration, so she presented to [facility]. Work-up there showed CXR with moderate cardiomegaly with haziness in LLL, and CT chest showed a large pericardial effusion without PE. She was then transferred to [facility] for further evaluation. On presentation, pt was afebrile, VSS. Labs showed WBC 22.8, Cr 1.2, Tbili 1.4, COVID-19 negative. Lyme screen negative. ESR 62, CRP 38.3. Procalcitonin 8.03. With echocardiographic evidence of tamponade, cardiology performed an urgent pericardiocentesis on 04/14, with removal of 1320 ml yellow turbid pericardial fluid. Saw significant pericardial thickening. She was admitted to the ICU for monitoring while pericardial drains are in place. Pt denies a recent cold. She reports she has had some congestion/nasal drainage for months, but this is not recently worsened. She denies a history of autoimmu ne conditions. Denies fevers, chills, rash, joint swelling. She was born in [place] and has never traveled outside of country. Lives with her and a pet cat. No other animal exposures. No recent travel. Not working. States she does not have any particular hobbies, denies gardening, hiking, or spending time in wooded areas. Unknown whether infection is causing the pericardial effusion at this time. Viral etiologies tend to be less common in large pericardial effusions without pericarditis. More common bacterial causes include Staph, Strep, Haemophilus, MTB, although would expect the pt to appear more ill with signs of infection elsewhere. Pt does not seem to have TB risk factors. Does not have known immunocompromise that could predispose her to fungal etiologies. Histo can cause pericardial effusions, but would expect to see disease elsewhere such as in her lungs. Recommendations: -Follow-up pericardial effusion cultures and studies -Ordered respiratory viral panel, CMV serology, EBV panel, parvovirus serology, HCV Ab -Can continue empiric antibiotics for now Will continue to follow Please page [facility] with further questions. Consultation Information Consultation was provided via telemedicine using two-way real-time interactive telecommunication between the patient and the telemedicine provider. For the duration of the visit, the provider was performing the assessment from a different facility than the patient. This includesuse of bluetooth stethoscope forauscultationperformed by the telepresenter that the telemedicine provider can hear if described in the physical exam. Bilingual Call Center Representative contact information: Please call [facility] [phone]. (Phone Number For Physician Use Only) After establishing a telemedicine visit, patient was: Patient was verified with two unique identifiers, Patient/authorized rep acknowledged consent and understanding and Gave permission to continue telehealth session Time Spent with Patient: Initial => 40 min History of Present Illness Reason for Consultation: pericardial effusion Requesting Physician: Dr. Arauz Attending Physician: Bety Vasquez DO History of Present Illness 72 yo F with history of HTN, HLD who was direct admit from [facility] on 04/13 for pericardial effusion. Pt reports she began having shortness of breath on 04/12 PM. She was seen by her PCP chest pain, shortness of breath, nonproductive cough, and this was thought to be a viral syndrome. On 04/13, she had more difficulty breathing and pain with inspiration, so she presented to [facility]. Work-up there showed CXR with moderate cardiomegaly with haziness in LLL, and CT chest showed a large pericardial effusion without PE. She was then transferred to [facility] for further evaluation. On presentation, pt was afebrile, VSS. Labs showed WBC 22.8, Cr 1.2, Tbili 1.4, COVID-19 negative. Lyme screen negative. ESR 62, CRP 38.3. Procalcitonin 8.03. With echocardiographic evidence of tamponade, cardiology performed an urgent pericardiocentesis on 04/14, with removal of 1320 ml yellow turbid pericardial fluid. Saw significant pericardial thickening. She was admitted to the ICU for monitoring while pericardial drains are in place. Pt denies a recent cold. She reports she has had some congestion/nasal drainage for months, but this is not recently worsened. She denies a history of autoimmune conditions. Denies fevers, chills, rash, joint swelling. She was born in [place] and has never traveled outside of country. Lives with her and a pet cat. No other animal exposures. No recent travel. Not working. States she does not have any particular hobbies, denies gardening, hiking, or spending time in wooded areas. Allergies Allergy/AdvReac Type Severity Reaction Status Date / Time vancomycin Allergy Mild Rash Verified 04/14/23 22:29 Home Medications Medication Instructions Recorded Confirmed Type amlodipine 5 mg tablet 5 mg PO DAILY 04/14/23 04/14/23 History atorvastatin 20 mg tablet 20 mg PO DAILY 04/14/23 04/14/23 History escitalopram oxalate 10 mg tablet 10 mg PO DAILY 04/14/23 04/14/23 History irbesartan 150 mg tablet 150 mg PO DAILY 04/14/23 04/14/23 History tramadol 50 mg tablet 50 mg PO Q8H PRN Pain 04/14/23 04/14/23 History Patient History Social History Smoking Status: Former smoker Hx Alcohol Use: Yes Alcohol type: wine Hx Substance Use: No Preferred Language: Japanese Communication Ability: Effective Drencher Required: No Beliefs That Will Affect Care: None Current Living Situation: Spouse Feels Safe at Home: Yes Assistive Devices: None Review of System A complete ROS was performed and is negative except as mentioned in the HPI. Physical Exam Physical Exam: GEN: Well-appearing, in NAD. HEENT: Normocephalic, atraumatic. EOMI RESP: No increased work of breathing ABD: Soft, non-distended. Non-tender to palpation. EXT: No LE edema. Warm, well-perfused. No focal joint abnormalities. SKIN: No lesions or rashes on exposed skin. NEURO: Alert and oriented. Answers all questions appropriately. Speech not slurred. PSYCH: Normal mood, affect appropriate. Results & Data Vital Signs (Past 12 Hours) Vital Signs Temp Pulse Resp BP Pulse Ox 04/16/23 10:00 99 H 18 91 04/16/23 10:00 121/85 04/16/23 09:00 92 H 17 94 04/16/23 09:00 124/74 04/16/23 08:30 95 H 28 H 94 04/16/23 08:00 96 H 31 H 94 04/16/23 08:00 116/75 04/16/23 07:30 102 H 19 95 04/16/23 07:00 96 H 30 H 94 04/16/23 07:00 115/68 04/16/23 06:30 95 H 26 H 94 04/16/23 07:46 37.6 C H 04/16/23 06:00 94 H 25 H 96 04/16/23 06:00 144/66 H 04/16/23 05:00 93 H 30 H 96 04/16/23 05:00 139/70 04/16/23 04:00 93 H 33 H 93 04/16/23 04:00 111/68 04/16/23 03:00 97 H 29 H 95 04/16/23 03:00 123/70 04/16/23 02:00 92 H 31 H 94 04/16/23 02:00 122/73 04/16/23 01:00 89 26 H 95 04/16/23 01:00 133/69 Laboratory Results Short CBC 04/16/23 Range/Units 04:40 WBC 24.01 H (4.8-10.8) K/ul Hgb 13.4 (12.0-16.0) g/dl Hct 40.3 (37.0-47.0) % Plt Count 299 (130-400) K/uL BMP 04/16/23 04:40 Sodium 136 Potassium 3.6 Chloride 105 Carbon Dioxide 22 BUN 12 Creatinine 0.62 D Glucose 109 H Calcium 8.4 L Liver Function 04/16/23 Range/Units 04:40 Total Bilirubin 0.5 (0.2-1.0) mg/dl AST 35 (13-39) U/L ALT 38 (7-52) U/L Alkaline Phosphatase 102 (34-104) U/L Albumin 2.9 L (3.4-5.0) gm/dl Diagnostic Findings Chest X-Ray 04/14/23 07:51 XR chest 1V portable HISTORY: leukocytosis, pericardial effusion, eval pna COMPARISON: Outside hospital chest CTA 04/13/2023. FINDINGS: The cardiac silhouette is markedly enlarged consistent with patient's known large pericardial effusion. No pneumothorax. Trace bilateral pleural effusions persist. No evidence for pulmonary edema. No new focal lung consolidations to suggest pneumonia. A few bibasilar linear densities favor subsegmental atelectasis. No acute fractures. IMPRESSION: Enlargement of the cardiac silhouette consistent with the patient's known large pericardial effusion. This is similar to the prior study. ACT 112: Negative or not required by law. Electronically signed by: Randall Lowery M.D. 04/14/2023 8:52 AM Chest X-Ray 04/14/23 18:34 SINGLE VIEW CHEST CLINICAL HISTORY: Aspiration. FINDINGS: An AP, portable, upright chest radiograph is compared to study performed earlier the same day 04/14/2023. Correlation is made with chest CT dated 04/13/2023. The cardiac silhouette is enlarged noting atherosclerotic calcification of the thoracic aorta. The pulmonary vasculature is noncongested. Left basilar opacities likely represent atelectasis. No large pleural effusion or pneumothorax is seen. The skeletal structures are osteopenic. The bony thorax is grossly intact. IMPRESSION: 1. Enlargement of the cardiac silhouette corresponds to a large pericardial effusion when correlated with the recent chest CT. 2. Bibasilar opacities are similar to previous and likely represent atelectasis. Clinical correlation will be required. ACT 112: Negative or not required by law. Electronically signed by: Amador Man M.D. 04/14/2023 7:08 PM Chest X-Ray 04/15/23 07:00 XR chest 1V portable CLINICAL HISTORY: pericardial drain COMPARISON STUDY: Chest CT April 13, 2023. Chest radiograph April 14, 2023. FINDINGS: There is no pneumothorax. Enlargement of the cardiac silhouette is similar to chest radiograph April 14, 2023 at 6:55 PM. This has decreased since chest radiograph of April 14, 2023 at 8:18 AM. There is no evidence for pulmonary edema. There are are trace bilateral pleural effusions. Linear left basilar opacity favors atelectasis. No consolidation is identified suggest pneumonia. IMPRESSION: 1. Stable enlargement of the cardiac silhouette since prior chest radiograph. Cardiac silhouette has decreased in size since initial chest radiograph. 2. No evidence for pulmonary edema. 3. Trace bilateral pleural effusions. ACT 112: Negative or not required by law. Electronically signed by: Ze Duckworth M.D. 04/15/2023 8:35 AM Chest X-Ray 04/16/23 07:00 SINGLE VIEW CHEST CLINICAL HISTORY: Pericardial effusion with pericardial drain. FINDINGS: An AP, portable, upright chest radiograph is compared to study dictated 04/15/2023. Correlation is made with chest CT dated 04/13/2023. The cardiac silhouette is enlarged noting atherosclerotic calcification of the thoracic aorta. A pericardial drain projects over the left heart border. The pulmonary vasculature is noncongested. Suspected left pleural effusion with left basilar consolidation. No pneumothorax is seen. The skeletal structures are osteopenic. The bony thorax is grossly intact. IMPRESSION: 1. Enlargement of the cardiac silhouette is similar to yesterday and corresponds to a pericardial effusion when correlated with the recent chest CT. A pericardial drain projects over the left heart border. 2. Suspect a left pleural effusion with left basilar consolidation. ACT 112: Negative or not required by law. Electronically signed by: Amador Man M.D. 04/16/2023 7:43 AM Medications Administered Current Inpatient Medications Acetaminophen (Acetaminophen 500 Mg Tab) 1,000 mg PO Q8H PRN PRN Reason: pain or fever Stop: 05/14/23 16:58 Last Admin: 04/16/23 11:21 Dose: 1,000 mg Amiodarone HCl (Amiodarone 200 Mg Tab) 200 mg PO BIDM [facility] Stop: 05/16/23 16:59 Aspirin (Aspirin 81 Mg Ectab) 81 mg PO BID [facility] Stop: 05/13/23 22:59 Last Admin: 04/16/23 07:48 Dose: 81 mg Atorvastatin Calcium (Atorvastatin 20 Mg Tab) 20 mg PO QAM [facility] Stop: 05/15/23 08:59 Last Admin: 04/16/23 07:48 Dose: 20 mg Colchicine (Colchicine 0.6 Mg Tab) 0.6 mg PO BID [facility] Stop: 05/13/23 22:59 Last Admin: 04/16/23 07:48 Dose: 0.6 mg Diphenhydramine HCl (Diphenhydramine 50 Mg/Ml Vial) 50 mg IV Q12 [facility] Stop: 05/16/23 20:59 Escitalopram Oxalate (Escitalopram Oxalate 10 Mg Tab) 10 mg PO QAM [facility] Stop: 05/14/23 14:44 Last Admin: 04/16/23 07:49 Dose: 10 mg Ceftriaxone Sodium 2,000 mg/ (Dextrose) 70 mls @ 100 mls/hr IV Q24H [facility]; Protocol Stop: 04/23/23 10:59 Last Infusion: 04/16/23 11:48 Dose: Infused Vancomycin HCl 1,000 mg/ (Sodium Chloride) 270 mls @ 100 mls/hr IV Q12H [facility] Stop: 04/24/23 00:00 Miscellaneous Information (Vancomycin Consult Active) 1 each N/A UD PRN PRN Reason: Consult Stop: 05/16/23 11:02 Morphine Sulfate (Morphine Sulfate 4 Mg/Ml 1 Ml Carp\Vial) 4 mg IV Q6H PRN PRN Reason: Chest Pain Stop: 04/27/23 23:16 Last Admin: 04/14/23 22:08 Dose: 4 mg Ondansetron HCl (Ondansetron Inj 2 Mg/Ml 2 Ml Vial) 4 mg IV Q4H PRN PRN Reason: Nausea Stop: 05/14/23 14:36
--- NOTE | 2023-04-16 14:23 | Hospitalist Progress Note ---
Date of Service April 16, 2023 Assessment & Plan (1) Cardiac/pericardial tamponade: Plan: Patient with neutrophil predominance pericardial effusion with noted leukocytosis and elevated procalcitonin - Remains with leukocytosis nuetorphil predominant as well with NLR of 12:1- afebrile - Rocephin, Vancomycin - ID consult pending - Blood cultures remain with NGTD x48 hours - Pericardial fluid cultures pending- send out approx 5-7 days until resulted - Cytology with negative gram stain and with neutrophils- non-malignant - Continue drain as per Cardiology recommendations - Continue Colchicine per Cardiology recommendations - Would inquire of when to repeat ECHO to ensure resolution - Appreciate ICU/ID/Cardiology assistance (2) Pericardial effusion: Plan: As above cause of #1 (3) Afib: Plan: Acute in setting of pericardial effusion - currently in NSR on Amiodarone- ammio infusion converted to oral 04/16/23 - Follow - consider anticoagulation needs for stroke prevention following drain removal (4) Headache: Plan: Bifrontal squeezing/sharp terminating behind left eye - Likely related to tension/stress - Tylenol PRN - She is without meningismus signs and no further neurological deficits - She does report having to sit up and forward to releive her chest pain and breathing prior to coming to EMD (5) Hyperlipidemia: Plan: Continue statin - chronic no acute needs (6) Hypertension: Plan: Chronic- well controlled- Current agents on hold until hemodyanmics proven stable (7) Leukocytosis: Plan: As above- continue empiric abx - Rocephin/Vancomycin Admission and Anticipated Discharge Date Admission Date: April 13, 2023 Supervising Physician Co-Signing Physician Notes AGENCY MANAGER Supervision Note: I did not personally see or examine the patient. I verified all zuniga points and agree with BETSEY Zavala with the following exceptions and/or additions: none Subjective Patient HD #3 following admission for pericardial effusion that had hemodynamic effects of compression of RV on ECHO. Patient underwent Pericardial drainage by interventional cardiology. She initially underwent drainage of 1320 ml of fluid, drain was placed to hemovac and patient was transitioned to the ICU- with appropriate cytology and cultures ordered. Overnight events with resolution of headache, has remained in NSR on amiodarone infusion- has since been transitioned to oral. Drain output recorded as 25ml. Discussed with ICU on multidisciplinary rounds. Plans for today- ID consultation, re-initiate Vancomycin (slower rate to avoid Anastasiya syndrome/rash she previously reported). Await Cardiology input for drain management/discontinuation and then re-evaluate for anticoagulation needs with PAF. Continue to closely follow along with anticipation of downgrade from ICU once drain is removed. Patient is in good spirits today, feels headache is better, no other pain or congestion. CODE: FULL Physical Exam Physical Exam: PHYSICAL EXAM: General: awake, alert, no apparent distress- out of bed to chair Head: Normocephalic, atraumatic ENT: PERRL, EOMI, no pharyngeal exudate, mucous membranes moist Neuro: AAO x 3, speech clear and appropriate, strength intact bilaterally 5/5, sensation intact and equal all extremities and dermatomes, no pronator drift Chest: equal rise and fall of the chest, no accessory muscle use, pain with deep inspiration, no heaves or thrills, Clear to auscultation, on room air, Cardiac: Regular rate and rhythm, telemetry reviewed- NSR, skin warm dry, cap refill <3 seconds, peripheral pulses +2 no JVD, no murmur, no edema GI: NABS x 4 quadrants, soft, nontender to palpation, no rebound, guarding or tenderness : Spontaneously voiding, no pain, no CVA tenderness, Extremities: Normal inspection, no peripheral edema or erythema, calfs nontender to palpation Psych: Normal mood and affect Skin: no rash or erythema Results & Data Results & Data Vital Signs (Past 12 Hours) Vital Signs Temp Pulse Resp BP Pulse Ox 04/16/23 12:00 92 H 31 H 93 04/16/23 11:00 97 H 18 93 04/16/23 11:00 103/80 04/16/23 10:00 99 H 18 91 04/16/23 10:00 121/85 04/16/23 09:00 92 H 17 94 04/16/23 09:00 124/74 04/16/23 08:30 95 H 28 H 94 04/16/23 08:00 96 H 31 H 94 04/16/23 08:00 116/75 04/16/23 07:30 102 H 19 95 04/16/23 07:00 96 H 30 H 94 04/16/23 07:00 115/68 04/16/23 06:30 95 H 26 H 94 04/16/23 07:46 37.6 C H 04/16/23 06:00 94 H 25 H 96 04/16/23 06:00 144/66 H 04/16/23 05:00 93 H 30 H 96 04/16/23 05:00 139/70 04/16/23 04:00 93 H 33 H 93 04/16/23 04:00 111/68 04/16/23 03:00 97 H 29 H 95 04/16/23 03:00 123/70 Laboratory Results Abnormal lab results 04/16/23 04/16/23 04/16/23 Range/Units 04:40 04:40 04:40 WBC 24.01 H (4.8-10.8) K/ul Neut # (Auto) 20.44 H (1.40-6.50) K/uL Hayes # (Auto) 1.78 H (0.11-0.59) K/uL Immature Gran # (Auto) 0.46 H (0.01-0.20) K/uL Glucose 109 H (70-99(Fasting)) mg/dl Calcium 8.4 L (8.6-10.3) mg/dl Phosphorus 2.3 L (2.5-4.9) mg/dl Albumin 2.9 L (3.4-5.0) gm/dl Random Vancomycin 4.6 L (10-20) mcg/ml Medications Administered Active Medications Acetaminophen (Acetaminophen 500 Mg Tab) 1,000 mg PO Q8H PRN PRN Reason: pain or fever Stop: 05/14/23 16:58 Last Admin: 04/16/23 11:21 Dose: 1,000 mg [facility]iodarone HCl ([facility] 200 Mg Tab) [facility] Stop: 05/16/23 16:59 Aspirin (Aspirin 81 Mg Ectab) 81 mg PO BID [facility] Stop: 05/13/23 22:59 Last Admin: 04/16/23 07:48 Dose: 81 mg Atorvastatin Calcium (Atorvastatin 20 Mg Tab) [facility] Stop: 05/15/23 08:59 Last Admin: 04/16/23 07:48 Dose: 20 mg Colchicine (Colchicine 0.6 Mg Tab) 0.6 mg PO BID [facility] Stop: 05/13/23 22:59 Last Admin: 04/16/23 07:48 Dose: 0.6 mg Escitalopram Oxalate (Escitalopram Oxalate 10 Mg Tab) 10 mg PO QAM [facility] Stop: 05/14/23 14:44 Last Admin: 04/16/23 07:49 Dose: 10 mg Ceftriaxone Sodium 2,000 mg/ (Dextrose) 70 mls @ 100 mls/hr IV Q24H [facility]; Prot ocol Stop: 04/23/23 10:59 Last Infusion: 04/16/23 11:48 Dose: Infused Miscellaneous Information (Vancomycin Consult Active) 1 each N/A UD PRN PRN Reason: Consult Stop: 05/16/23 11:02 Morphine Sulfate (Morphine Sulfate 4 Mg/Ml 1 Ml Carp\Vial) 4 mg IV Q6H PRN PRN Reason: Chest Pain Stop: 04/27/23 23:16 Last Admin: 04/14/23 22:08 Dose: 4 mg Ondansetron HCl (Ondansetron Inj 2 Mg/Ml 2 Ml Vial) 4 mg IV Q4H PRN PRN Reason: Nausea Stop: 05/14/23 14:36 PG Care Time/CCT Total # of Minutes Spent Total Time Spent with Patient: Total time spent is greater than 50% in coordination of care (as documented) at patient's floor/unit and/or counseling patient: Coding Level of Care Code 08103 SUB INP/OBS CARE 2/35MIN Medical Decision Making Moderate Complexity Diagnoses Cardiac/pericardial tamponade I31.4 Pericardial effusion I31.39 Afib I48.91 Headache R51.9 Hyperlipidemia E78.5 Hypertension I10 Leukocytosis D72.829
--- NOTE | 2023-04-16 15:03 | Pharmacy Report ---
Pharmacy PK ABX Note - Date of Service April 16, 2023 - Assessment and Plan Assessment * 72 year old F receiving empiric vancomycin and ceftriaxone for concern of possible bacterial pericarditis. * Vancomycin was briefly transitioned to dapto (concern for allergic reaction), however reaction may have been red man infusion reaction. * Discussed on ICU rounds today - will consult ID, resume vancomycin for now, and pre-medicate for first vancomycin dose. * Spoke with RN (Da) - patient seems to have tolerated the resumed vancomycin at half the usual rate. * Plan to continue with ceftraixone and vancomycin (1/2 infusion rate) for now, pending ID input (note in draft form at this time) * May or may not require ongoing premedications with ongoing vancomycin doses - Dr. Arauz to assess, and ID also consulted Plan Vancomycin * Maintenance dose: 1000mg IV every 12 hours * Regimen is predicted to achieve target AUC/PARISH of 400-600 mg/L.hr * Random level ordered for: 04/18/23 @ 0800 Pharmacy will continue to follow and will adjust dose/frequency as necessary. Thank you. Pharmacy has transitioned to AUC monitoring for vancomycin. AUC/PARISH is the preferred PK/PD target and is associated with decreased risk of nephrotoxicity compared to traditional trough targets.
[2023-04-16] MEDS ORDERED: AMIODARONE 200 MG TAB PO SCH (17:00)
[2023-04-16 17:37] LABS: Adenovirus PCR Not Detected (NotDetected); Bordetella parapertussis PCR Not Detected (NotDetected); Bordetella pertussis PCR Not Detected (NotDetected); Chlamydia pneumoniae PCR Not Detected (NotDetected); Coronavirus 229E PCR Not Detected (NotDetected); Coronavirus CoV-2 (COVID19)PCR Not Detected (NotDetected); Coronavirus HKU1 PCR Not Detected (NotDetected); Coronavirus NL63 PCR Not Detected (NotDetected); Coronavirus OC43PCR Not Detected (NotDetected); Human Metapneumovirus PCR Not Detected (NotDetected); Influenza A PCR Not Detected (NotDetected); Influenza B PCR Not Detected (NotDetected); Mycoplasma pneumoniae PCR Not Detected (NotDetected); Parainfluenza Virus 1 PCR Not Detected (NotDetected); Parainfluenza Virus 2 PCR Not Detected (NotDetected); Parainfluenza Virus 3 PCR Not Detected (NotDetected); Parainfluenza Virus 4 PCR Not Detected (NotDetected); Respiratory Syncytial VirusPCR Not Detected (NotDetected); Rhinovirus/Enterovirus PCR Not Detected (NotDetected)
--- NOTE | 2023-04-16 22:21 | Cardiology Progress Note ---
Date of Service April 16, 2023 Assessment & Plan (1) Pericardial effusion: Plan: 2. PAF 3. Leukocytosis Minimal pericardial drainage over last 8 hours. Presenting symptoms improved, hemodynamically stable Remains in sinus rhythm Pericardial fluid labs pending. -- Attempted to manually drain additional fluid from pericardial drain - minimal additional straw colored fluid. -- Drain removed. Post removal bedside echo revealed moderate residual effusion with apparent debris/hematoma. No echo signs of tamponade. -- Repeat limited echo in AM -- If effusion appears stable -- recommend close follow-up with serial ultrasounds -- If effusion worsening may need to consider pericardial window -- Broad spectrum Abx per primary team/ID -- continue colchicine -- antihypertensives on hold -- can reduce amiodarone to 200mg daily Will follow Admission and Anticipated Discharge Date Admission Date: April 13, 2023 Subjective Patient seen this afternoon. Reports feeling well. Denies any chest pain, shortness of breath. Blood pressures/heart rates stable. Off oxygen Over the course of the day only had another 5 mL out from pericardial drain. Review of Systems Review of Systems: All systems reviewed & are unremarkable except as noted in HPI & below Physical Exam Physical Exam: General: Comfortable HEENT: Sclerae anicteric Lungs: Clear to auscultation bilaterally Cardiac: Distant heart sounds, regular. Minimal erythema around pericardial drain Vascular: 2+ radial Abdomen: Soft Extremities: Well perfused, no peripheral edema Neuro: Nonfocal Psych: Alert orient x3, normal affect and mood Results & Data Vital Signs (Past 12 Hours) Vital Signs Pulse Resp BP Pulse Ox 04/16/23 19:45 93 H 22 91 04/16/23 19:30 89 32 H 92 04/16/23 19:15 88 27 H 92 04/16/23 19:00 88 18 93 04/16/23 19:00 119/70 04/16/23 16:00 85 30 H 93 04/16/23 16:00 141/74 H 04/16/23 15:00 83 25 H 93 04/16/23 15:00 123/73 04/16/23 14:00 84 22 92 04/16/23 14:00 131/85 04/16/23 13:01 88 25 H 92 04/16/23 13:01 125/86 04/16/23 13:00 90 29 H 04/16/23 16:00 92 H 04/16/23 12:00 92 H 31 H 93 04/16/23 11:00 97 H 18 93 04/16/23 11:00 103/80 PG Care Time/CCT Total # of Minutes Spent Total Time Spent with Patient: Total time spent is greater than 50% in coordination of care (as documented) at patient's floor/unit and/or counseling patient: Coding Level of Care Code 94649 SUB INP/OBS CARE 3/50MIN Diagnoses Pericardial effusion I31.39
[2023-04-17] MEDS: diphenhydrAMINE 50 MG/ML VIAL IV SCH ×3 (00:02→23:07)
[2023-04-17] MEDS: VANCOMYCIN HCL 1,000 MG in SODIUM CHLORIDE 0.9% 250 ML IV SCH ×3 (00:02→23:40)
[2023-04-17 05:03] LABS: Basophils # (auto) 0.08 K/uL (0-0.2); Basophils % (auto) 0.5 %; Eosinophils # (auto) 0.15 K/uL (0-0.50); Eosinophils % (auto) 0.8 %; Hematocrit (blood only) 39.5 % (37.0-47.0); Hemoglobin 13.3 g/dl (12.0-16.0); Immature Granulocytes % (auto) 0.6 %; Lymphocytes # (auto) 1.48 K/uL (1.2-3.4); Lymphocytes % (auto) 8.3 %; Mean Corpuscular Hemoglobin 28.4 pg (25.0-34.0); Mean Corpuscular Hgb Conc 33.7 g/dL (32.0-36.0); Mean Corpuscular Volume 84.2 fL (80.0-100.0); Mean Platelet Volume 9.8 fL (9.4-12.4); Monocytes # (auto) 1.85 K/uL (0.11-0.59); Monocytes % (auto) 10.4 %; Neutrophils # (auto) 14.07 K/uL (1.40-6.50); Neutrophils % (auto) 79.4 %; Platelet Count 352 K/uL (130-400); RDW Coefficient of Variation 14.1 % (11.5-14.5); Red Blood Count 4.69 M/uL (4.20-5.40); White Blood Count 17.73 K/ul (4.8-10.8)
[2023-04-17 05:08] LABS: Albumin Globulin Ratio 0.9 (0.9-2); BUN Creatinine Ratio 13.9 (10-20); Bilirubin,Total 0.6 mg/dl (0.2-1.0); Calcium 8.3 mg/dl (8.6-10.3); Creatinine Clr Calc Pharmacy 68.4 ml/min; Est GFR (African American) 97.7 ml/min; Est GFR (Non-African American) 84.3 ml/min; Globulin 3.3 gm/dl (2.5-4.0); Potassium 3.2 mmol/L (3.5-5.1); Total Protein 6.3 gm/dl (6.0-8.3)
[2023-04-17] MEDS ORDERED: POTASSIUM CHLORIDE CRTAB 20 MEQ TABCR PO STA (07:14)
--- NOTE | 2023-04-17 07:18 | Hospitalist Progress Note ---
Date of Service April 17, 2023 Assessment & Plan (1) Cardiac/pericardial tamponade: Plan: Patient with neutrophil predominance pericardial effusion with noted leukocytosis and elevated procalcitonin - Leukocytosis 24 -> 17 today with empiric Abx - Cytology with negative gram stain and with neutrophils, non-malignant - Continue Colchicine per Cardiology recommendations - Drain removed 04/16, repeat Echo with some loculated anterior effusion, much reduced - Appreciate ID/Cardiology assistance, case discussed with Drs. Yung and Saud - Lyme neg, MRSA neg, Biofire negative, BCx NGTD - CMV serology/EBV panel/Parvovirus serology/HCV Ab pending - Pericardial fluid studies pending - Cont Vanc/Rocephin for now (2) Pericardial effusion: Plan: As above cause of #1 (3) Afib: Plan: Acute in setting of pericardial effusion - Currently in NSR on Amiodarone- amio infusion converted to oral 04/16/23, continue 200mg PO daily - Consider anticoagulation needs for stroke prevention following drain removal, defer to Cardiology (4) Headache: Plan: - Bifrontal squeezing headache, suspect stress/tension headache - Tylenol PRN - She is without meningismus signs and no further neurological deficits (5) Hyperlipidemia: Plan: - Continue statin, chronic no acute needs (6) Hypertension: Plan: - Chronic, well controlled - Home agents on hold as BP 130s systolic (7) Leukocytosis: Plan: - As above, continue empiric Rocephin/Vancomycin Admission and Anticipated Discharge Date Admission Date: April 13, 2023 Subjective No overnight events, no more chest pressure or pain, no SOB. Having some anxiety over being in the hospital and being sick. Review of Systems Review of Systems: All systems reviewed & are unremarkable except as noted in Subjective Physical Exam Constitutional: WD/WN, vitals as above Respiratory: normal respiratory effort, lungs clear to auscultation Cardiovascular: HR irregularly irregular Gastrointestinal (Abdomen): normal bowel sounds, soft, nontender, no hepatosplenomegaly Skin: no rashes, warm and dry Psychiatric: AAOx3, anxious affect Results & Data Results & Data Vital Signs (Past 12 Hours) Vital Signs Pulse Resp BP Pulse Ox 04/17/23 00:33 91 H 04/16/23 23:00 90 33 H 91 04/16/23 23:00 132/71 04/16/23 22:45 91 H 31 H 90 04/16/23 22:30 91 H 34 H 90 04/16/23 22:15 96 H 23 90 04/16/23 22:00 89 29 H 91 04/16/23 22:00 123/88 04/16/23 21:45 91 H 21 91 04/16/23 21:30 91 H 23 92 04/16/23 21:15 90 22 91 04/16/23 21:00 87 29 H 90 04/16/23 21:00 132/75 04/16/23 20:45 88 23 91 04/16/23 20:30 87 32 H 89 L 04/16/23 20:15 87 31 H 90 04/16/23 20:00 87 33 H 91 04/16/23 20:00 135/62 04/16/23 19:45 93 H 22 91 04/16/23 19:30 89 32 H 92 04/16/23 19:15 88 27 H 92 PG Care Time/CCT Total # of Minutes Spent Total Time Spent with Patient: Total time spent is greater than 50% in coordination of care (as documented) at patient's floor/unit and/or counseling patient: Coding Level of Care Code 58809 SUB INP/OBS CARE 3/50MIN Diagnoses Cardiac/pericardial tamponade I31.4 Pericardial effusion I31.39 Afib I48.91 Headache R51.9 Hyperlipidemia E78.5 Hypertension I10 Leukocytosis D72.829
--- NOTE | 2023-04-17 07:23 | XRay Report ---
SINGLE VIEW CHEST CLINICAL HISTORY: Pericardial effusion. FINDINGS: An AP, portable, upright chest radiograph is compared to study dictated 04/16/2023. Correlat ion is made with chest CT dated 04/13/2023. The cardiac silhouette is enlarged noting atherosclerotic calcification of the thoracic aorta. The pericardial drain has been removed. The pulmonary vasculatur e is noncongested. There are left first lumbar pleural effusions with left basilar consolidation. No pneumothorax is seen. The skeletal structures are osteopenic. The bony thorax is grossly intact. IMPRESSION: 1. Enlargement of the cardiac silhouette is similar to yesterday and likely corresponds to a pericard ial effusion when correlated with the recent chest CT. The pericardial drain has been removed. 2. Left larger than right pleural effusions with left basilar consolidation. ACT 112: Negative or not required by law. Electronically signed by: Amador Man M.D. 04/17/2023 7:22 AM
[2023-04-17] MEDS: ATORVASTATIN 20 MG TAB PO SCH (07:39)
[2023-04-17] MEDS: ASPIRIN 81 MG ECTAB PO SCH ×2 (07:39→19:42)
[2023-04-17] MEDS: AMIODARONE 200 MG TAB PO SCH (07:39)
[2023-04-17] MEDS: ESCITALOPRAM OXALATE 10 MG TAB PO SCH (07:39)
[2023-04-17] MEDS: COLCHICINE 0.6 MG TAB PO SCH ×2 (07:39→19:42)
--- NOTE | 2023-04-17 11:22 | Infectious Disease Progress Nt ---
Date of Service April 17, 2023 Assessment & Plan (1) Pericardial effusion: Plan Micro: 04/17 HCV Ab: pending 04/17 Parvovirus IgG, IgM: pending 04/17 EBV panel: pending 04/17 CMV IgM, IgG: pending 04/16 RVP: negative 04/14 Lyme screen: negative 04/14 MRSA nares: negative 04/14 Pericardial fluid (before antibiotics) -Routine cx: NGTD. GS--no organisms -Fungal smear neg, cx pending -AFB smear neg, cx pending -Viral cx: pending (Adenovirus, CMV, Enterovirus, HSV 1/2, VZV) 04/14 BCx x2: NGTD Abx: Vanc 04/14 - present Ceftriaxone 2 g 04/14 - present Dapto 04/15 Problems: #Pericardial effusion #Leukocytosis: downtrending 72 yo F with history of HTN, HLD who was direct admit from [facility] on 04/13 for pericardial effusion. Pt began having shortness of breath on 04/12 PM. On 04/13, she had more difficulty breathing and pain with inspiration, so she presented to [facility]. Work-up there showed CXR with moderate cardiomegaly with haziness in LLL, and CT chest showed a large pericardial effusion without PE. She was then transferred to [facility] for further evaluation. On presentation, pt was afebrile, VSS. Labs showed WBC 22.8, Cr 1.2, Tbili 1.4, COVID-19 negative. Lyme screen negative. ESR 62, CRP 38.3. Procalcitonin 8.03. With echocardiographic evidence of tamponade, cardiology performed an urgent pericardiocentesis on 04/14, with removal of 1320 ml yellow turbid pericardial fluid. Saw significant pericardial thickening. Drain was removed 04/16. Pt denies a recent cold. She reports she has had some congestion/nasal drainage for months, but this is not recently worsened. She denies a history of autoimmune conditions. Denies fevers, chills, rash, joint swelling. She was born in [place] and has never traveled outside of country. Lives with her and a pet cat. No other animal exposures. No recent travel. Has not traveled to [facility]. Not working, previously worked as geological technician. States she does not have any particular hobbies, denies gardening, hiking, or spending time in wooded areas. Denies known contact with TB. Has not been homeless/incarcerated or worked with these populations. Unknown whether infection is causing the pericardial effusion at this time. Viral etiologies tend to be less common in large pericardial effusions without pericarditis. RVP is negative. More common bacterial causes include Staph, Strep, Haemophilus, MTB, although would expect the pt to appear more ill with signs of infection elsewhere, and the pericardial fluid gram stain is negative with culture NGTD. Pt does not have TB risk factors. Does not have known immunocompromise that could predispose her to fungal etiologies. Histo can cause pericardial effusions, but would expect to see disease elsewhere such as in her lungs. Recommendations: -Follow-up pericardial effusion cultures and studies -Follow-up CMV serology, EBV panel, parvovirus serology, HCV Ab. Ordered HIV screen for AM. -Can continue empiric antibiotics for now. Would discontinue if pericardial fluid culture negative. Will continue to follow Please note that there will be no ID notes over the weekend. If urgent/time- sensitive questions or concerns arise, please contact the Infectious Disease Call Center and ask to speak with the covering ID physician. Admission and Anticipated Discharge Date Admission Date: April 13, 2023 Subjective Subsequent visit was provided via telemedicine using two-way real-time interactive telecommunication between the patient and the telemedicine provider. For the duration of the visit, the provider was performing the assessment from a different facility than the patient. This includesuse of bluetooth stethoscope forauscultationperformed by the telepresenter that the telemedicine provider can hear if described in the physical exam. Flexboard Operator contact information: Please call [facility] . (Phone Number For Physician Use Only) After establishing a telemedicine visit, patient was: Patient was verified with two unique identifiers, Patient/authorized rep acknowledged consent and understanding and Gave permission to continue telehealth session Time Spent with Patient: Subsequent => 25 min Pt reports feeling better Review of System A complete ROS was performed and is negative except as mentioned in the HPI. Physical Exam Physical Exam: GEN: Well-appearing, in NAD. RESP: No increased work of breathing NEURO: Alert and oriented. Answers all questions appropriately. Speech not slurred. PSYCH: Normal mood, affect appropriate. Results & Data Vital Signs (Past 12 Hours) Vital Signs Temp Pulse Pulse Resp BP Pulse Ox O2 Del Method 04/17/23 08:05 37.2 C 94 H 14 144/98 H 95 Room Air 04/17/23 08:00 91 H 04/17/23 00:33 91 H Laboratory Results Short CBC 04/17/23 Range/Units 04:36 WBC 17.73 H (4.8-10.8) K/ul Hgb 13.3 (12.0-16.0) g/dl Hct 39.5 (37.0-47.0) % Plt Count 352 (130-400) K/uL BMP 04/17/23 04:36 Sodium 138 Potassium 3.2 L Chloride 105 Carbon Dioxide 23 BUN 10 Creatinine 0.72 Glucose 91 Calcium 8.3 L Liver Function 04/17/23 Range/Units 04:36 Total Bilirubin 0.6 (0.2-1.0) mg/dl AST 29 (13-39) U/L ALT 41 (7-52) U/L Alkaline Phosphatase 105 H (34-104) U/L Albumin 3.0 L (3.4-5.0) gm/dl Diagnostic Findings Chest X-Ray 04/17/23 07:00 SINGLE VIEW CHEST CLINICAL HISTORY: Pericardial effusion. FINDINGS: An AP, portable, upright chest radiograph is compared to study dictated 04/16/2023. Correlation is made with chest CT dated 04/13/2023. The cardiac silhouette is enlarged noting atherosclerotic calcification of the thoracic aorta. The pericardial drain has been removed. The pulmonary vasculature is noncongested. There are left first lumbar pleural effusions with left basilar consolidation. No pneumothorax is seen. The skeletal structures are osteopenic. The bony thorax is grossly intact. IMPRESSION: 1. Enlargement of the cardiac silhouette is similar to yesterday and likely corresponds to a pericardial effusion when correlated with the recent chest CT. The pericardial drain has been removed. 2. Left larger than right pleural effusions with left basilar consolidation. ACT 112: Negative or not required by law. Electronically signed by: Amador Man M.D. 04/17/2023 7:22 AM Medications Administered Current Inpatient Medications Acetaminophen (Acetaminophen 500 Mg Tab) 1,000 mg PO Q8H PRN PRN Reason: pain or fever Stop: 05/14/23 16:58 Last Admin: 04/16/23 11:21 Dose: 1,000 mg Amiodarone HCl (Amiodarone 200 Mg Tab) 200 mg PO DAILY [facility] Stop: 05/17/23 08:59 Last Admin: 04/17/23 07:39 Dose: 200 mg Aspirin (Aspirin 81 Mg Ectab) 81 mg PO BID [facility] Stop: 05/13/23 22:59 Last Admin: 04/17/23 07:39 Dose: 81 mg Atorvastatin Calcium (Atorvastatin 20 Mg Tab) 20 mg PO QAM [facility] Stop: 05/15/23 08:59 Last Admin: 04/17/23 07:39 Dose: 20 mg Colchicine (Colchicine 0.6 Mg Tab) 0.6 mg PO BID [facility] Stop: 05/13/23 22:59 Last Admin: 04/17/23 07:39 Dose: 0.6 mg Diphenhydramine HCl (Diphenhydramine 50 Mg/Ml Vial) 50 mg IV Q12@1130,2330 [facility] Stop: 05/16/23 23:29 Last Admin: 04/17/23 00:02 Dose: 50 mg Escitalopram Oxalate (Escitalopram Oxalate 10 Mg Tab) 10 mg PO QAM [facility] Stop: 05/14/23 14:44 Last Admin: 04/17/23 07:39 Dose: 10 mg Ceftriaxone Sodium 2,000 mg/ (Dextrose) 70 mls @ 100 mls/hr IV Q24H [facility]; Protocol Stop: 04/23/23 10:59 Last Infusion: 04/16/23 11:48 Dose: Infused Vancomycin HCl 1,000 mg/ (Sodium Chloride) 270 mls @ 100 mls/hr IV Q12H [facility] Stop: 04/24/23 00:00 Last Infusion: 04/17/23 04:30 Dose: Infused Miscellaneous Information (Vancomycin Consult Active) 1 each N/A UD PRN PRN Reason: Consult Stop: 05/16/23 11:02 Morphine Sulfate (Morphine Sulfate 4 Mg/Ml 1 Ml Carp\Vial) 4 mg IV Q6H PRN PRN Reason: Chest Pain Stop: 04/27/23 23:16 Last Admin: 04/14/23 22:08 Dose: 4 mg Ondansetron HCl (Ondansetron Inj 2 Mg/Ml 2 Ml Vial) 4 mg IV Q4H PRN PRN Reason: Nausea Stop: 05/14/23 14:36
[2023-04-17] MEDS: cefTRIAXone SODIUM 2,000 MG in DEXTROSE 5% 50 ML IV SCH (11:50)
[2023-04-17] MEDS: ACETAMINOPHEN 500 MG TAB PO PRN (11:57)
--- NOTE | 2023-04-17 17:24 | Cardiology Progress Note ---
Date of Service April 17, 2023 Assessment & Plan (1) Pericardial effusion: Plan: 2. PAF 3. Leukocytosis 4. Pleural effusions Repeat echocardiogram shows resolution of prior circumferential effusion now with only potentially loculated anterior residual effusion. No echocardiographic signs of tamponade. Etiology of effusion still unclear but appears to be stable following drain removal. At this time not feel needs additional pericardiocentesis/pericardial window. --Recommend close follow-up with serial ultrasounds, would repeat limited echocardiogram prior to discharge and again sometime next week Follow-up on pericardial fluid studies -- Broad spectrum Abx per primary team/ID -- continue colchicine -- antihypertensives on hold -- can reduce amiodarone to 200mg daily -- can discontinue as an outpatient. Admission and Anticipated Discharge Date Admission Date: April 13, 2023 Subjective Feeling well today. Denies any chest pain, or shortness of breath. Telemetryremains in sinus rhythm Blood pressures in 130s to 140s. Heart rates in the 80s and 90s WBC trending down from 24 down to 17 Review of Systems Review of Systems: All systems reviewed & are unremarkable except as noted in HPI & below Physical Exam Physical Exam: General: Comfortable HEENT: Sclerae anicteric Lungs: Clear to auscultation bilaterally Cardiac: Distant heart sounds, regular. 4 x 4 dressing over prior pericardial site saturated with straw-colored fluid. No surrounding erythema/induration Vascular: 2+ radial Abdomen: Soft Extremities: Well perfused, no peripheral edema Neuro: Nonfocal Psych: Alert orient x3, normal affect and mood Results & Data Vital Signs (Past 12 Hours) Vital Signs Temp Pulse Pulse Resp BP Pulse Ox O2 Del Method 04/17/23 13:22 82 16 130/72 95 Room Air 04/17/23 11:43 91 H 04/17/23 08:05 99.0 F 94 H 14 144/98 H 95 Room Air 04/17/23 08:00 91 H PG Care Time/CCT Total # of Minutes Spent Total Time Spent with Patient: Total time spent is greater than 50% in coordination of care (as documented) at patient's floor/unit and/or counseling patient: Coding Level of Care Code 88685 SUB INP/OBS CARE 3/50MIN Diagnoses Pericardial effusion I31.39
[2023-04-18 04:49] LABS: Basophils # (auto) 0.06 K/uL (0-0.2); Basophils % (auto) 0.4 %; Eosinophils # (auto) 0.22 K/uL (0-0.50); Eosinophils % (auto) 1.4 %; Hematocrit (blood only) 38.1 % (37.0-47.0); Hemoglobin 13.1 g/dl (12.0-16.0); Immature Granulocytes # (auto) 0.16 K/uL (0.01-0.20); Lymphocytes # (auto) 1.33 K/uL (1.2-3.4); Lymphocytes % (auto) 8.2 %; Mean Corpuscular Hemoglobin 28.7 pg (25.0-34.0); Mean Corpuscular Hgb Conc 34.4 g/dL (32.0-36.0); Mean Corpuscular Volume 83.4 fL (80.0-100.0); Mean Platelet Volume 9.9 fL (9.4-12.4); Monocytes # (auto) 1.76 K/uL (0.11-0.59); Monocytes % (auto) 10.9 %; Neutrophils # (auto) 12.68 K/uL (1.40-6.50); Neutrophils % (auto) 78.1 %; Platelet Count 369 K/uL (130-400); RDW Coefficient of Variation 14.2 % (11.5-14.5); RDW Standard Deviation 43.2 fL (36.4-46.3); Red Blood Count 4.57 M/uL (4.20-5.40); White Blood Count 16.21 K/ul (4.8-10.8)
[2023-04-18 04:50] LABS: BUN Creatinine Ratio 11.7 (10-20); Calcium 8.3 mg/dl (8.6-10.3); Creatinine Clr Calc Pharmacy 85.7 ml/min; Est GFR (African American) 106.3 ml/min; Est GFR (Non-African American) 91.7 ml/min; Magnesium 1.8 mg/dl (1.7-2.4)
[2023-04-18] MEDS ORDERED: POTASSIUM CHLORIDE CRTAB 20 MEQ TABCR PO STA (07:12)
--- NOTE | 2023-04-18 07:17 | Hospitalist Progress Note ---
Date of Service April 18, 2023 Assessment & Plan (1) Cardiac/pericardial tamponade: Plan: Patient with neutrophil predominance pericardial effusion with noted leukocytosis and elevated procalcitonin - Leukocytosis 24 -> 16 today with empiric Abx - Cytology with negative gram stain and with neutrophils, non-malignant - Continue Colchicine per Cardiology recommendations - Drain removed 04/16, repeat Echo 04/17 with some loculated anterior effusion, but much reduced - Appreciate ID/Cardiology assistance with this case - Lyme neg, MRSA neg, Biofire negative, BCx NGTD - CMV serology/EBV panel/Parvovirus serology/HCV Ab/HIV pending - Pericardial fluid studies pending - Cont Vanc/Rocephin for now - Does have some superficial phlebitis on LUE by wrist, warm compresses and continue to monitor - Repeat another limited Echo tomorrow, Cardiology follow up outpatient (2) Pericardial effusion: Plan: As above cause of #1 (3) Afib: Plan: Acute in setting of pericardial effusion - In NSR on amiodarone, continue 200mg PO daily - Defer anticoagulation for now as patient is in NSR, recent pericardial effusion, consider on discharge, discussed with Dr. Burciaga (4) GERD (gastroesophageal reflux disease): Plan: - With symptoms of reflux today, have added Protonix - Zofran as needed for nausea (5) Headache: Plan: - Bifrontal squeezing headache, suspect stress/tension headache - Tylenol PRN - She is without meningismus signs and no further neurological deficits (6) Hyperlipidemia: Plan: - Continue statin, chronic no acute needs (7) Hypertension: Plan: - Chronic, well controlled - Home agents on hold as BP 130s systolic (8) Leukocytosis: Plan: - As above, continue empiric Rocephin/Vancomycin Admission and Anticipated Discharge Date Admission Date: April 13, 2023 Subjective Reports a lot of reflux today, and had small emesis x1 without preceding nausea. Denies chest pain or pressure, SOB. No acute overnight events. Review of Systems Review of Systems: All systems reviewed & are unremarkable except as noted in Subjective Physical Exam Constitutional: WD/WN, vitals as above Respiratory: normal respiratory effort, lungs clear to auscultation Cardiovascular: HR irregularly irregular, no murmurs Gastrointestinal (Abdomen): mild epigastric discomfort, no rebound or guarding Skin: no rashes, warm and dry Psychiatric: A+Ox3, euthymic affect Results & Data Results & Data Vital Signs (Past 12 Hours) Vital Signs Temp Pulse Resp BP Pulse Ox O2 Del Method 04/18/23 02:30 37 C 94 H 16 157/84 H 95 Room Air 04/17/23 20:19 37 C 87 16 155/83 H 95 Room Air PG Care Time/CCT Total # of Minutes Spent Total Time Spent with Patient: Total time spent is greater than 50% in coordination of care (as documented) at patient's floor/unit and/or counseling patient: Coding Level of Care Code 98769 SUB INP/OBS CARE 3/50MIN Diagnoses Cardiac/pericardial tamponade I31.4 Pericardial effusion I31.39 Afib I48.91 GERD (gastroesophageal reflux disease) K21.9 Headache R51.9 Hyperlipidemia E78.5 Hypertension I10 Leukocytosis D72.829
[2023-04-18] MEDS: AMIODARONE 200 MG TAB PO SCH (07:47)
[2023-04-18] MEDS: ATORVASTATIN 20 MG TAB PO SCH (07:47)
[2023-04-18] MEDS: COLCHICINE 0.6 MG TAB PO SCH ×2 (07:48→21:08)
[2023-04-18] MEDS: ASPIRIN 81 MG ECTAB PO SCH ×2 (07:48→21:08)
[2023-04-18] MEDS: ESCITALOPRAM OXALATE 10 MG TAB PO SCH (07:48)
--- NOTE | 2023-04-18 09:39 | Pharmacy Report ---
Pharmacy PK ABX Note - Date of Service April 18, 2023 - Assessment and Plan Assessment 04/18: * Day #3 of Vancomycin and Day #5 of Ceftriaxone. * Patient remains afebrile and hemodynamically stable. White count continues to improve, 16.2k today. SCr pretty stable. * Blood cultures are negative. Chest and pericardial cultures are still preliminary but show no growth to date. * ID is consulted and recommend continuing empiric abx until pericardial cultures result. If negative, okay to discontinue abx. 04/16: * 72 year old F receiving empiric vancomycin and ceftriaxone for concern of possible bacterial pericarditis. * Vancomycin was briefly transitioned to dapto (concern for allergic reaction), however reaction may have been red man infusion reaction. * Discussed on ICU rounds today - will consult ID, resume vancomycin for now, and pre-medicate for first vancomycin dose. * Spoke with RN (Da) - patient seems to have tolerated the resumed vancomycin at half the usual rate. * Plan to continue with ceftraixone and vancomycin (1/2 infusion rate) for now, pending ID input (note in draft form at this time) * May or may not require ongoing premedications with ongoing vancomycin doses - Dr. Arauz to assess, and ID also consulted Plan Vancomycin * Current regimen: 1000 mg IV every 12 hours * Random level obtained 04/18/23 resulted as 10.9 mcg/mL. This is subtherapeutic. * Change to 1250 mg IV every 12 hours. Predicted AUC at steady state: 443 mg/L .hr * Will order a repeat level in 48 hours if cultures haven't resulted by that point. Pharmacy will continue to follow and will adjust dose/frequency as necessary. Thank you. Pharmacy has transitioned to AUC monitoring for vancomycin. AUC/PARISH is the preferred PK/PD target and is associated with decreased risk of nephrotoxicity compared to traditional trough targets.
[2023-04-18] MEDS: cefTRIAXone SODIUM 2,000 MG in DEXTROSE 5% 50 ML IV SCH (10:33)
[2023-04-18] MEDS: diphenhydrAMINE 50 MG/ML VIAL IV SCH ×2 (10:33→21:08)
[2023-04-18] MEDS ORDERED: FAMOTIDINE 20 MG in SYRINGE 3 ML IV ONE (11:15)
[2023-04-18] MEDS: VANCOMYCIN HCL 1,250 MG in SODIUM CHLORIDE 0.9% 250 ML IV SCH ×2 (11:37→21:48)
[2023-04-18 14:17] LABS: Fluid Appearance TURBID; Fluid Basophil % 0 %; Fluid Color YELLOW; Fluid Comment DNR; Fluid Eosinophil % 1 %; Fluid Lymphocytes % 3 %; Fluid Mesothelial % 0 %; Fluid Monocyte/Macrophage % 8 %; Fluid Neutrophil % 88 %; Fluid Total Nucleated Cell Ct 37250 cells/uL; Fluid Type PERICARDIAL; Pericardial Fld,Total Protein 6.5 g/dL; Pericardial Fluid, Albumin 4.1 g/dL; Pericardial Fluid, Glucose 22 mg/dL; Pericardial Fluid, LDH >1300 U/L
[2023-04-18] MEDS: ACETAMINOPHEN 500 MG TAB PO PRN (14:49)
[2023-04-18] MEDS ORDERED: POTASSIUM CHLORIDE CRTAB 20 MEQ TABCR PO ONE (19:00)
[2023-04-19 03:53] LABS: Hematocrit (blood only) 38.6 % (37.0-47.0); Hemoglobin 13.1 g/dl (12.0-16.0); Mean Corpuscular Hemoglobin 28.6 pg (25.0-34.0); Mean Corpuscular Hgb Conc 33.9 g/dL (32.0-36.0); Mean Corpuscular Volume 84.3 fL (80.0-100.0); Mean Platelet Volume 9.8 fL (9.4-12.4); Platelet Count 413 K/uL (130-400); RDW Coefficient of Variation 14.4 % (11.5-14.5); RDW Standard Deviation 43.8 fL (36.4-46.3); Red Blood Count 4.58 M/uL (4.20-5.40); White Blood Count 15.01 K/ul (4.8-10.8)
[2023-04-19 04:20] LABS: Potassium 3.6 mmol/L (3.5-5.1)
[2023-04-19 04:21] LABS: BUN Creatinine Ratio 11.1 (10-20); Calcium 8.4 mg/dl (8.6-10.3); Creatinine Clr Calc Pharmacy 71.4 ml/min; Est GFR (African American) 97.7 ml/min; Est GFR (Non-African American) 84.3 ml/min
--- NOTE | 2023-04-19 07:27 | Hospitalist Progress Note ---
Date of Service April 19, 2023 Assessment & Plan (1) Cardiac/pericardial tamponade: Plan: Patient with neutrophil predominance pericardial effusion with noted leukocytosis and elevated procalcitonin - Leukocytosis 24 -> 16 today with empiric Abx - Cytology with negative gram stain and with neutrophils, non-malignant - Continue Colchicine per Cardiology recommendations - Drain removed 04/16, repeat Echo 04/17 with some loculated anterior effusion, but much reduced - Appreciate ID/Cardiology assistance with this case - Lyme neg, MRSA neg, Biofire negative, BCx NGTD - CMV serology/EBV panel/Parvovirus serology/HCV Ab/HIV pending - Pericardial fluid studies pending - Cont Vanc/Rocephin for now - Does have some superficial phlebitis on LUE by wrist, warm compresses and continue to monitor - Repeat another limited Echo today, Cardiology follow up outpatient (2) Pericardial effusion: Plan: As above cause of #1 (3) Afib: Plan: Acute in setting of pericardial effusion - In NSR on amiodarone, continue 200mg PO daily - Defer anticoagulation for now as patient is in NSR, recent pericardial effusion, consider on discharge, discussed with Dr. Burciaga (4) GERD (gastroesophageal reflux disease): Plan: - With symptoms of reflux 04/18, Protonix added - Zofran as needed for nausea (5) Headache: Plan: - Bifrontal squeezing headache, suspect stress/tension headache - Tylenol PRN - She is without meningismus signs and no further neurological deficits (6) Hyperlipidemia: Plan: - Continue statin, chronic no acute needs (7) Hypertension: Plan: - Chronic, well controlled - Home agents on hold as BP 130s systolic (8) Leukocytosis: Plan: - As above, continue empiric Rocephin/Vancomycin Admission and Anticipated Discharge Date Admission Date: April 13, 2023 Results & Data Results & Data Vital Signs (Past 12 Hours) Vital Signs Temp Pulse Pulse Resp BP Pulse Ox O2 Del Method 04/19/23 07:22 91 H 04/19/23 04:00 36.8 C 85 20 154/88 H 94 Room Air 04/18/23 21:54 36.5 C 85 18 138/85 94 Room Air PG Care Time/CCT Total # of Minutes Spent Total Time Spent with Patient: Total time spent is greater than 50% in coordination of care (as documented) at patient's floor/unit and/or counseling patient: Coding Diagnoses Cardiac/pericardial tamponade I31.4 Pericardial effusion I31.39 Afib I48.91 GERD (gastroesophageal reflux disease) K21.9 Headache R51.9 Hyperlipidemia E78.5 Hypertension I10 Leukocytosis D72.829
[2023-04-19] MEDS: AMIODARONE 200 MG TAB PO SCH (08:46)
[2023-04-19] MEDS: ASPIRIN 81 MG ECTAB PO SCH (08:47)
[2023-04-19] MEDS: ATORVASTATIN 20 MG TAB PO SCH (08:47)
[2023-04-19] MEDS: COLCHICINE 0.6 MG TAB PO SCH (08:47)
[2023-04-19] MEDS ORDERED: PANTOprazole 40 MG TAB PO SCH (09:00)
[2023-04-19] MEDS: diphenhydrAMINE 50 MG/ML VIAL IV SCH (09:15)
--- NOTE | 2023-04-19 09:37 | XCELERA ---
[id number] \\[id number]
[2023-04-19] MEDS: VANCOMYCIN HCL 1,250 MG in SODIUM CHLORIDE 0.9% 250 ML IV SCH (09:45)
[2023-04-19] MEDS: ESCITALOPRAM OXALATE 10 MG TAB PO SCH (09:45)
[2023-04-19] MEDS: cefTRIAXone SODIUM 2,000 MG in DEXTROSE 5% 50 ML IV SCH (11:36)
--- NOTE | 2023-04-19 14:06 | Discharge Summary ---
Discharge Summary Date of Service April 19, 2023 Admission HPI Per Admitting Provider Patient is a 72-year-old female with past medical history of hypertension, hyperlipidemia, and depression who is a direct admit from [facility] for pericardial effusion. Patient seen by her PCP on 04/12 for chest pain, shortness of breath, and nonproductive cough. She was told that it was most likely a viral illness. This morning she started to have more difficult breathing and pain with inspiration. She went to [facility]. EKG at [facility] also showed sinus tach. Chest x-ray showed moderate cardiomegaly with haziness in the left lower lobe. CAT scan of the chest showed a large pericardial effusion without pulmonary embolism. Patient was then [facility] to [facility] evaluation. Patient was given morphine at 1500 prior to being transferred. Patient seen bedside at time of arrival. Hemodynamically stable at this time. States that her chest pain occurs when she takes a deep breath and was starting to subside with morphine at 1500. Health chest pain is starting to slowly return especially during deep breaths. Patient denies any abdominal pain, nausea or vomiting, lightheadedness, or headache. Admission Exam Per Admitting Provider Constitutional: well developed and well nourished; no acute distress Eyes: PERRL, conjunctivae normal, anicteric sclerae Respiratory: normal respiratory effort, lungs clear to auscultation Cardiovascular: Rate/Rhythm: regular rate and regular rhythm Vessels: no JVD Extremities: no pedal edema Distant heart sounds Gastrointestinal (Abdomen): normal bowel sounds, soft, nontender, no hepatosplenomegaly Musculoskeletal: no cyanosis or clubbing, extremities motor strength 5/5 Skin: no rashes, warm and dry Principal Dx & Hospital Course #1 = Principal Diagnosis (1) Cardiac/pericardial tamponade: Patient with neutrophil predominance pericardial effusion with noted leukocytosis and elevated procalcitonin - Leukocytosis 24 -> 15 today with empiric Abx - Cytology with negative gram stain and with neutrophils, non-malignant - Continue Colchicine per Cardiology recommendations, at reduced dose 0.3mg daily due to increased concentration /2 amiodarone - Drain removed 04/16, repeat Echo 04/17 and 04/19 with some loculated anterior effusion, but stable and reduced - Appreciate ID/Cardiology assistance with this case - Lyme neg, MRSA neg, Biofire negative, BCx NGTD - CMV serology/EBV panel/Parvovirus serology/HCV Ab/HIV pending - Pericardial fluid studies without clear evidence of infection - Empiric antibiotics stopped on discharge - Does have some superficial phlebitis on RUE by wrist, warm compresses and continue to monitor outpatient (2) Pericardial effusion: As above cause of #1 (3) Afib: Acute in setting of pericardial effusion - Discussed with Dr. Burciaga, continue amiodarone and Eliquis for AFib, can be discontinued by outpatient Cards if deemed unnecessary (4) GERD (gastroesophageal reflux disease): - With symptoms of reflux 04/18, continue Protonix on d/c especially given anticoagulation/NSAIDs (5) Headache: - Bifrontal squeezing headache, suspect stress/tension headache - Tylenol PRN (6) Hyperlipidemia: - Continue statin, chronic no acute needs (7) Hypertension: - Chronic, well controlled - Home agents on hold as BP 130s systolic (8) Leukocytosis: - No laboratory evidence of infection, no obvious source, WBC likely 2/2 inflammation, Abx discontinued Plan Dispo: close follw up and Echo with Cards this upcoming week Discharge Exam Constitutional WD/WN, vitals as above Respiratory normal respiratory effort, lungs clear to auscultation Cardiovascular RRR, no murmur, no edema Psychiatric A+Ox3, euthymic affect Updated Medication List Medication Instructions Recorded Confirmed Type amlodipine 5 mg tablet 5 mg PO DAILY 04/14/23 04/14/23 History atorvastatin 20 mg tablet 20 mg PO DAILY 04/14/23 04/14/23 History escitalopram oxalate 10 mg tablet 10 mg PO DAILY 04/14/23 04/14/23 History irbesartan 150 mg tablet 150 mg PO DAILY 04/14/23 04/14/23 History tramadol 50 mg tablet 50 mg PO Q8H PRN Pain 04/14/23 04/14/23 History amiodarone 200 mg tablet 200 mg PO DAILY 30 days #30 tabs 04/19/23 Rx apixaban 5 mg tablet (Eliquis) 5 mg PO Q12H 30 days #60 tabs 04/19/23 Rx aspirin 81 mg tablet,delayed 81 mg PO BID 30 days #60 tabs 04/19/23 Rx release colchicine 0.6 mg tablet (Colcrys) 0.6 mg PO BID 30 days #60 tabs 04/19/23 Rx pantoprazole 40 mg tablet,delayed 40 mg PO QAM 30 days #30 tabs 04/19/23 Rx release Hospital Stay Data Consultations 04/13/23 22:57 Consult Cardiology Routine 04/14/23 12:09 Consult Hydrography Teacher Routine 04/16/23 13:13 Consult Infectious Diseases Stat 04/16/23 13:36 Consult Infectious Diseases Routine 04/19/23 14:01 Consult [facility] psych coordinator Routine Procedures Performed Operation Date: 04/14/23 12:00 Actual Procedures p Pericardiocentesis Initial - Conner Ribeiro MD, PhD Diagnostic Imagining Performed 04/14/23 10:24 CL Cath Imgs for PACS use only Routine Pending Results Patient Have Any Pending Studies at Discharge: Yes (some pericardial fluid studies) Discharge Instructions Given to Patient (Per Discharging Provider) You were admitted for evaluation of chest pressure and pericardial effusion. This fluid was drained, and you had improvement in your symptoms. We had you on broad spectrum antibiotics in case there was evidence of an infection in the fluid; fortunately, there was not. There was also no evidence of cancer in the fluid. This could have been viral in etiology, but we are not sure at this time. You will have close follow up including a repeat Echocardiogram with Cardiology, please call their office at the number provided above if you don't hear from their office by Thursday, or if you have questions or concerns about your heart. Please see your new medication list below: Amiodarone is for AFib, as is the Eliquis. You may notice some increase in bruising on the Eliquis. The colchicine and aspirin are for the pericardial effusion. The aspirin is 81 milligrams, over the counter. The pantoprazole is for acid in the stomach, to help protect you from a stomach ulcer on all of these medications. Total Time Total Time Spent Total Time Spent (In Minutes): 40 min Coding Level of Care Code 74402 INP/OBS DISCH >30 MIN Diagnoses Cardiac/pericardial tamponade I31.4 Pericardial effusion I31.39 Afib I48.91 GERD (gastroesophageal reflux disease) K21.9 Headache R51.9 Hyperlipidemia E78.5 Hypertension I10 Leukocytosis D72.829
[2023-04-21 07:31] LABS: CMV IgG Antibody >10.00 U/mL; CMV IgM Antibody <30.00 AU/mL; Parvovirus IgG 0.2 (<0.9); Parvovirus IgM 0.1 (<0.9)
--- NOTE | 2023-04-21 11:11 | XCELERA ---
[id number] \\[facility]\ISCV_PDF_[id number]
== END 2023-04-19 14:45 | disposition home or self-care (01) | DRG 316 ==
LOC: 2S 22:25 → SUATTDRO 22:25 → 1E 04-14 11:20

== ENCOUNTER 2023-05-05 10:05 | Inpatient (IN) ==
[2023-05-05] MEDS ORDERED: ONDANSETRON INJ 2 MG/ML 2 ML VIAL IV STA (10:27)
[2023-05-05] MEDS ORDERED: MoRPHine SULFATE 4 MG/ML 1 ML CARP\\VIAL IV STA ×2 (10:27→12:47)
[2023-05-05] MEDS ORDERED: SODIUM CHLORIDE 0.9% 500 ML IV STA (10:27)
--- NOTE | 2023-05-05 10:29 | Emergency Department Note ---
Impression & Plan Hematoma ADMIT ED Provider Note HPI: The patient is a 72-year-old female with history of atrial fibrillation, currently anticoagulated on Eliquis, presents emergency department with a chief complaint of pain over the left hip and left buttocks. Patient states she rissa eves that her pain is stemming from falling asleep in an uncomfortable chair about 8 or 9 days ago. She noticed a contusion forming shortly thereafter and it is ever since been spreading now to the left buttocks, upper posterior left lower extremity, and over her coccyx. Patient states the pain is getting worse during this time. Patient denies any other known injuries or fall, she states that she has been ambulatory but it is painful. On arrival here to the ED the patient is in mild distress secondary to pain, she is hypertensive at 177/79, she is afebrile and saturating well on room air. ROS: - Per HPI Differential Diagnosis: Gluteal hematoma, hip fracture, necrotizing soft ti ssue infection, cellulitis, amongst other potential pathologies. *Outpatient medications and allergy history reviewed. *Pertinent external medical records reviewed. PE: General: Alert HEENT: Normocephalic, trachea midline Eyes: Extraocular eye movement is intact, no scleral erythema Pulmonary: Clear to auscultation bilaterally, no wheezing Cardio: Regular rate and rhythm GI: Abdomen is soft to palpation : No suprapubic tenderness MSK: No evidence of trauma or malformation of the extremities, no edema Skin: There is a large contusion covering the left gluteal region extending over the coccyx and down the superior portion of the posterior thigh Neuro: Alert, no focal deficits Psychiatric: Cooperative patient monitor: (As interpreted by myself): - An order was placed for continuous cardiac monitoring - Patient was noted to be in sinus rhythm with a rate of 90 Interventions provided in ED: -IV morphine, IV Zofran, IV fluid bolus, Kcentra Medical Decision Making: Patient presented to the emergency department with increasing pain over the left gluteal region, she tells me that she believes this began at after she woke up from a nap sleeping in a chair outside. Pain is worsened since then. IV was established and lab work obtained, patient was maintained on nurse monitoring. Lab work shows leukocytosis of 19,000, this is noted to be chronic in nature although slightly higher than previous. Hemoglobin is low at 8.8, this is new from lab work on 04/19 when hemoglobin was within normal limits. Platelet count is slightly high at 624. CMP does not show any critical findings, procalcitonin is fairly low at 0.09. I suspect because of this the patient's acute on chronic leukocytosis may be reactive in nature. CT imaging of the left hip and the left femur were obtained, there is evidence of a large acute to subacute appearing hematoma in the left lateral hip and posterior proximal thigh. There is mention of a possible punctate region of active extravasation. Patient does tell me that she took her Eliquis at 7 AM, therefore did discuss the case with the on-call anticoagulation specialist, Dr. Garcia, and the patient was ordered Kcentra for potential reversal. She remained hemodynamically stable while here in the ED, pain was well controlled following IV morphine and IV Zofran. I discussed the patient's presentation with general surgery, Dr. Hunt, CT imaging was reviewed by Dr. Hunt and he feels that given the proximity of the hematoma to the bone and prosthesis that the patient had done 2 years ago that the patient would be more appropriate for orthopedic consultation as opposed to general surgery. I then did discuss the case with on-call orthopedics, Dr. Lei, and following our discussion it is thought that the patient is stable for overnight observation, repeat H&H in the morning, and he is agreeable for consultation. I discussed this with the patient, she is in agreement to this plan and states her preference for staying here [facility] as opposed to transfer to tertiary care center which was offered. I feel this is reasonable as the patient is hemodynamically stable and this process is likely been slowly ongoing for 7 days and her continuation of the Eliquis is most likely the reason that the hematoma has slowly expanded, therefore I think given the Kcentra and stopping the Eliquis will result in appropriate control of the hematoma. I did discuss all of this with the on-call hospitalist, Dr. Potts, he is in agreement to admit the patient for further management, trending H&H, and orthopedic consultation. Patient is in agreement to this plan and she was placed for admission in stable condition. Consultants: -General Surgery, Dr. Hunt -Orthopedic Surgery, Dr. Lei -Hospitalist, Dr. Potts Disposition discussion held by myself with: Patient * CRITICAL CARE TIME: (38) minutes -Management of patient with hematoma of the left gluteal region currently on anticoagulation with anemia, requiring ultimately reversal of Eliquis with Kcentra. Time spent at the bedside, discussion with multiple consulting physicians, discussion with family, arrangement of admission. Diagnosis: 1. Left gluteal region hematoma, acute to subacute 2. Anemia, acute, secondary to blood loss 3. History of atrial fibrillation, on anticoagulation 4. Left gluteal pain, acute Disposition: Admission Max Cabral DO Emergency Medicine Past Med/Surg History Social History Smoking Status: Never smoker Hx Alcohol Use: Yes Alcohol type: wine Hx Substance Use: No Preferred Language: Malay Communication Ability: Effective Luggage Attendant Required: No Beliefs That Will Affect Care: None Current Living Situation: Spouse Feels Safe at Home: Yes Assistive Devices: None Allergies Allergies Allergy/AdvReac Type Severity Reaction Status Date / Time vancomycin Allergy Mild Rash Verified 04/30/23 09:54 Home Meds Home Medications Medication Instructions Recorded Confirmed atorvastatin 20 mg tablet 20 mg PO DAILY 04/14/23 05/05/23 escitalopram oxalate 10 mg tablet 10 mg PO DAILY 04/14/23 05/05/23 irbesartan 150 mg tablet 150 mg PO DAILY 04/14/23 05/05/23 tramadol 50 mg tablet 50 mg PO Q8H PRN Pain 04/14/23 05/05/23 Previous Rx's Medication Instructions Recorded amiodarone 200 mg tablet 200 mg PO DAILY 30 days #30 tabs 04/19/23 apixaban 5 mg tablet (Eliquis) 5 mg PO Q12H 30 days #60 tabs 04/19/23 aspirin 81 mg tablet,delayed 81 mg PO BID 30 days #60 tabs 04/19/23 release colchicine (gout) 0.6 mg tablet 0.6 mg PO BID 30 days #60 tabs 04/19/23 (Colcrys) pantoprazole 40 mg tablet,delayed 40 mg PO QAM 30 days #30 tabs 04/19/23 release Results & Data (ED) Vital Signs Vital Signs - 24 hr 05/05/23 10:09 05/05/23 10:25 05/05/23 11:49 Temperature 36.2 C L Temperature Source Oral Pulse Rate 106 H 100 H Pulse Rate [Apical] 96 H Respiratory Rate 24 18 Respiratory Effort / Characteristics Non-Labored Spontaneous Respiratory Depth Normal Respiratory Pattern Regular Blood Pressure 177/79 H Blood Pressure [Right Arm] 124/72 Blood Pressure Mean 111 Blood Pressure Mean [Right Arm] 89 Blood Pressure Position Lying Pulse Oximetry 100 100 Oxygen Delivery Method Room Air Room Air Sepsis Recent Fever Within 48 Hours No Sepsis New/Unexplained Change in Mental Status No Sepsis Action Taken by Nursing No Action Required 05/05/23 13:00 05/05/23 14:00 05/05/23 14:03 Temperature Temperature Source Pulse Rate 92 H Pulse Rate [Apical] 87 90 Respiratory Rate 14 12 Respiratory Effort / Characteristics Respiratory Depth Respiratory Pattern Blood Pressure Blood Pressure [Right Arm] 107/55 L 105/61 Blood Pressure Mean Blood Pressure Mean [Right Arm] 72 75 Blood Pressure Position Pulse Oximetry 100 97 Oxygen Delivery Method Room Air Room Air Sepsis Recent Fever Within 48 Hours Sepsis New/Unexplained Change in Mental Status Sepsis Action Taken by Nursing Laboratory Data 05/05/23 10:26 05/05/23 10:26 Lab Results 05/05/23 05/05/23 05/05/23 Range/Units 10:26 10:26 10:26 WBC 19.09 H (4.8-10.8) K/ul RBC 3.19 L (4.20-5.40) M/uL Hgb 8.8 L (12.0-16.0) g/dl Hct 26.6 L (37.0-47.0) % MCV 83.4 (80.0-100.0) fL MCH 27.6 (25.0-34.0) pg MCHC 33.1 (32.0-36.0) g/dL RDW Std Deviation 42.6 (36.4-46.3) fL RDW Coeff of Fede 14.0 (11.5-14.5) % Plt Count 624 H (130-400) K/uL MPV 9.7 (9.4-12.4) fL Immature Gran % (Auto) 0.9 % Neut % (Auto) 86.4 % Lymph % (Auto) 5.2 % [place] % (Auto) 6.8 % Eos % (Auto) 0.2 % Baso % (Auto) 0.5 % Neut # (Auto) 16.48 H (1.40-6.50) K/uL Lymph # (Auto) 0.99 L (1.2-3.4) K/uL [place] # (Auto) 1.30 H (0.11-0.59) K/uL Eos # (Auto) 0.04 (0-0.50) K/uL Baso # (Auto) 0.10 (0-0.2) K/uL Immature Gran # (Auto) 0.18 (0.01-0.20) K/uL PT 12.9 H (9.0-12.0) Seconds INR 1.2 H (0.9-1.1) Sodium 134 L (136-145) mmol/L Potassium 3.5 (3.5-5.1) mmol/L Chloride 100 (98-107) mmol/L Carbon Dioxide 24 (21-32) mmol/L Anion Gap 10 (3-11) BUN 9 (6-23) mg/dl Creatinine 0.68 (0.6-1.2) mg/dl Est Cr Clr Drug Dosing 77.5 ml/min Est GFR ( Amer) 102.0 ml/min Est GFR (Non-Af Amer) 88.0 ml/min BUN/Creatinine Ratio 13.2 (10-20) Glucose 107 H (70-99(Fasting)) mg/dl Calcium 8.7 (8.6-10.3) mg/dl Total Bilirubin 1.5 H (0.2-1.0) mg/dl AST 34 (13-39) U/L ALT 44 (7-52) U/L Alkaline Phosphatase 78 (34-104) U/L Total Protein 6.7 (6.0-8.3) gm/dl Albumin 3.2 L (3.4-5.0) gm/dl Globulin 3.5 (2.5-4.0) gm/dl Albumin/Globulin Ratio 0.9 (0.9-2) Procalcitonin (0-0.5) ng/ml 05/05/23 Range/Units 11:43 WBC (4.8-10.8) K/ul RBC (4.20-5.40) M/uL Hgb (12.0-16.0) g/dl Hct (37.0-47.0) % MCV (80.0-100.0) fL MCH (25.0-34.0) pg MCHC (32.0-36.0) g/dL RDW Std Deviation (36.4-46.3) fL RDW Coeff of Fede (11.5-14.5) % Plt Count (130-400) K/uL MPV (9.4-12.4) fL Immature Gran % (Auto) % Neut % (Auto) % Lymph % (Auto) % [place] % (Auto) % Eos % (Auto) % Baso % (Auto) % Neut # (Auto) (1.40-6.50) K/uL Lymph # (Auto) (1.2-3.4) K/uL [place] # (Auto) (0.11-0.59) K/uL Eos # (Auto) (0-0.50) K/uL Baso # (Auto) (0-0.2) K/uL Immature Gran # (Auto) (0.01-0.20) K/uL PT (9.0-12.0) Seconds INR (0.9-1.1) Sodium (136-145) mmol/L Potassium (3.5-5.1) mmol/L Chloride (98-107) mmol/L Carbon Dioxide (21-32) mmol/L Anion Gap (3-11) BUN (6-23) mg/dl Creatinine (0.6-1.2) mg/dl Est Cr Clr Drug Dosing ml/min Est GFR ( Amer) ml/min Est GFR (Non-Af Amer) ml/min BUN/Creatinine Ratio (10-20) Glucose (70-99(Fasting)) mg/dl Calcium (8.6-10.3) mg/dl Total Bilirubin (0.2-1.0) mg/dl AST (13-39) U/L ALT (7-52) U/L Alkaline Phosphatase (34-104) U/L Total Protein (6.0-8.3) gm/dl Albumin (3.4-5.0) gm/dl Globulin (2.5-4.0) gm/dl Albumin/Globulin Ratio (0.9-2) Procalcitonin 0.09 (0-0.5) ng/ml Administered Medications Prothrombin Complex Concent ( (Human) 2,000 units/ Syringe) 80 mls @ 10 mls/min IV TODAY@1345 [facility]; Protocol Stop: 06/04/23 14:30 Last Admin: 05/05/23 13:44 Dose: 10 mls/min Documented By: HAROLDO Discontinued Medications Sodium Chloride (Nss) 500 mls @ 999 mls/hr IV .Q31M STA Stop: 05/05/23 10:57 Last Infusion: 05/05/23 12:57 Dose: 0 mls/hr Documented By: Admin: 05/05/23 10:33 Dose: 999 mls/hr Documented By: NGOC Ioversol (Optiray 350 500ml) 89 ml IV ONCE ONE Stop: 05/05/23 12:37 Last Admin: 05/05/23 12:36 Dose: 89 ml Documented By: DUNCAN Morphine Sulfate (Morphine Sulfate 4 Mg/Ml 1 Ml Carp\Vial) 4 mg IV NOW STA Stop: 05/05/23 10:28 Last Admin: 05/05/23 10:36 Dose: 4 mg Documented By: NGOC Morphine Sulfate (Morphine Sulfate 4 Mg/Ml 1 Ml Carp\Vial) 4 mg IV NOW STA Stop: 05/05/23 12:48 Last Admin: 05/05/23 12:55 Dose: 4 mg Documented By: HAROLDO Ondansetron HCl (Ondansetron Inj 2 Mg/Ml 2 Ml Vial) 4 mg IV NOW STA Stop: 05/05/23 10:28 Last Admin: 05/05/23 10:36 Dose: 4 mg Documented By: NGOC Imaging Data Radiologist's Impression: Femur CT 05/05/23 10:25 CT femur LT w con, CT hip LT w con CT DOSE: 876.52 mGy.cm CLINICAL HISTORY: hematoma L buttocks and upper posterior L LOWER EXTREMITY TECHNIQUE: Multiaxial CT images of the left hip and left femur were performed following the intravenous administration of 89 cc of Optiray 350. Sagittal and coronal reformations were also obtained. A dose lowering technique was utilized adhering to the principles of ALARA. COMPARISON STUDY: None. FINDINGS: There is a left total hip arthroplasty. This results in suboptimal evaluation of the left hip and proximal left femur due to the metallic artifact. However, there is no definite fracture or dislocation within the left hip or left femur. The visualized pelvic bones are intact. No abnormal periprosthetic lucency. A few prominent left inguinal lymph nodes. These may be reactive. Colonic diverticulosis is noted. Mild calcified plaque within the left femoral and popliteal arteries. No significant stenosis or occlusion identified. Subcutaneous edema/hemorrhage within the left lateral hip and proximal lateral thigh. There is a multiloculated heterogeneous collection posterior to the left hip and proximal left femur which extends into the subcutaneous soft tissues of the left lateral hip as well as the inferior aspect of the left gluteus alisha muscle. This heterogeneous multiloculated collection measures up to 25 x 11 x 10 cm. The exact dimensions are difficult to assess due to the metallic artifact. This heterogeneous collection abuts the posterior aspect of the proximal left femur. No knee effusion. There is questionable punctate focus of active arterial show cavitation at the subcutaneous component of this suspected hematoma best seen on axial image 90 of series 3. IMPRESSION: 1. There is a large heterogeneous multiloculated collection within the left posterior lateral hip/proximal thigh measuring 25 x 11 x 10 cm. This involves th e subcutaneous, intramuscular, and deep soft tissue compartments as described above. This favors an acute to subacute hematoma. 2. Possible punctate focus of active arterial extravasation within the subcutaneous location of the left lateral hip. 3. No fracture or dislocation within the left hip or left femur. 4. Left total arthroplasty. ACT 112: Negative or not required by law. Electronically signed by: Randall Lowery M.D. 05/05/2023 1:[address] 05/05/23 10:25 CT femur LT w con, CT hip LT w con CT DOSE: 876.52 mGy.cm CLINICAL HISTORY: hematoma L buttocks and upper posterior L LOWER EXTREMITY TECHNIQUE: Multiaxial CT images of the left hip and left femur were performed following the intravenous administration of 89 cc of Optiray 350. Sagittal and coronal reformations were also obtained. A dose lowering technique was utilized adhering to the principles of ALARA. COMPARISON STUDY: None. FINDINGS: There is a left total hip arthroplasty. This results in suboptimal evaluation of the left hip and proximal left femur due to the metallic artifact. However, there is no definite fracture or dislocation within the left hip or left femur. The visualized pelvic bones are intact. No abnormal periprosthetic lucency. A few prominent left inguinal lymph nodes. These may be reactive. Colonic diverticulosis is noted. Mild calcified plaque within the left femoral a nd popliteal arteries. No significant stenosis or occlusion identified. Subcutaneous edema/hemorrhage within the left lateral hip and proximal lateral thigh. There is a multiloculated heterogeneous collection posterior to the left hip and proximal left femur which extends into the subcutaneous soft tissues of the left lateral hip as well as the inferior aspect of the left gluteus alisha muscle. This heterogeneous multiloculated collection measures up to 25 x 11 x 10 cm. The exact dimensions are difficult to assess due to the metallic artifact. This heterogeneous collection abuts the posterior aspect of the proximal left femur. No knee effusion. There is questionable punctate focus of active arterial show cavitation at the subcutaneous component of this suspected hematoma best seen on axial image 90 of series 3. IMPRESSION: 1. There is a large heterogeneous multiloculated collection within the left posterior lateral hip/proximal thigh measuring 25 x 11 x 10 cm. This involves the subcutaneous, intramuscular, and deep soft tissue compartments as described above. This favors an acute to subacute hematoma. 2. Possible punctate focus of active arterial extravasation within the subcutaneous location of the left lateral hip. 3. No fracture or dislocation within the left hip or left femur. 4. Left total arthroplasty. ACT 112: Negative or not required by law. Electronically signed by: Randall Lowery M.D. 05/05/2023 1:04 PM Discharge Plan Visit Data Chief Complaint: Hip Pain ED Provider: Max Cabral Discharge Problem: Hematoma Forms Stand Alone Forms: [facility] Prescriptions Prescriptions: No Action atorvastatin 20 mg tablet 20 mg PO DAILY tramadol 50 mg tablet 50 mg PO Q8H PRN (Reason: Pain) irbesartan 150 mg tablet 150 mg PO DAILY escitalopram oxalate 10 mg tablet 10 mg PO DAILY amiodarone 200 mg Tablet 200 mg PO DAILY 30 Days Qty: 30 0RF aspirin 81 mg Tablet,Delayed Release (Dr/Ec) 81 mg PO BID 30 Days Qty: 60 0RF pantoprazole 40 mg Tablet,Delayed Release (Dr/Ec) 40 mg PO QAM 30 Days Qty: 30 0RF colchicine (gout) [Colcrys] 0.6 mg Tablet 0.6 mg PO BID 30 Days Qty: 60 0RF Eliquis 5 mg tablet 5 mg PO Q12H 30 Days Qty: 60 0RF Referrals Referrals: Baldo Sow MD [Primary Care Provider] -
[2023-05-05 10:51] LABS: Basophils % (auto) 0.5 %; Eosinophils # (auto) 0.04 K/uL (0-0.50); Eosinophils % (auto) 0.2 %; Hematocrit (blood only) 26.6 % (37.0-47.0); Hemoglobin 8.8 g/dl (12.0-16.0); Immature Granulocytes # (auto) 0.18 K/uL (0.01-0.20); Immature Granulocytes % (auto) 0.9 %; Lymphocytes # (auto) 0.99 K/uL (1.2-3.4); Lymphocytes % (auto) 5.2 %; Mean Corpuscular Hemoglobin 27.6 pg (25.0-34.0); Mean Corpuscular Hgb Conc 33.1 g/dL (32.0-36.0); Mean Corpuscular Volume 83.4 fL (80.0-100.0); Mean Platelet Volume 9.7 fL (9.4-12.4); Monocytes % (auto) 6.8 %; Neutrophils # (auto) 16.48 K/uL (1.40-6.50); Neutrophils % (auto) 86.4 %; Platelet Count 624 K/uL (130-400); RDW Standard Deviation 42.6 fL (36.4-46.3); Red Blood Count 3.19 M/uL (4.20-5.40); White Blood Count 19.09 K/ul (4.8-10.8)
[2023-05-05 11:06] LABS: INR 1.2 (0.9-1.1); Prothrombin Time 12.9 Seconds (9.0-12.0)
[2023-05-05 11:11] LABS: Albumin Level 3.2 gm/dl (3.4-5.0); Bilirubin,Total 1.5 mg/dl (0.2-1.0); Calcium 8.7 mg/dl (8.6-10.3); Potassium 3.5 mmol/L (3.5-5.1)
[2023-05-05 11:17] LABS: Albumin Globulin Ratio 0.9 (0.9-2); BUN Creatinine Ratio 13.2 (10-20); Creatinine Clr Calc Pharmacy 77.5 ml/min; Globulin 3.5 gm/dl (2.5-4.0); Total Protein 6.7 gm/dl (6.0-8.3)
[2023-05-05] MEDS ORDERED: OPTIRAY 350 500ml IV ONE (12:36)
--- NOTE | 2023-05-05 13:06 | CT Scan Report ---
CT femur LT w con, CT hip LT w con CT DOSE: 876.52 mGy.cm CLINICAL HISTORY: hematoma L buttocks and upper posterior L LOWER EXTREMITY TECHNIQUE: Multiaxial CT images of the left hip and left femur were performed following the intraveno us administration of 89 cc of Optiray 350. Sagittal and coronal reformations were also obtained. A d ose lowering technique was utilized adhering to the principles of ALARA. COMPARISON STUDY: None. FINDINGS: There is a left total hip arthroplasty. This results in suboptimal evaluation of the left h ip and proximal left femur due to the metallic artifact. However, there is no definite fracture or di slocation within the left hip or left femur. The visualized pelvic bones are intact. No abnormal maximilian prosthetic lucency. A few prominent left inguinal lymph nodes. These may be reactive. Colonic diverti culosis is noted. Mild calcified plaque within the left femoral and popliteal arteries. No significan t stenosis or occlusion identified. Subcutaneous edema/hemorrhage within the left lateral hip and pro ximal lateral thigh. There is a multiloculated heterogeneous collection posterior to the left hip and proximal left femur which extends into the subcutaneous soft tissues of the left lateral hip as well as the inferior aspect of the left gluteus alisha muscle. This heterogeneous multiloculated collect ion measures up to 25 x 11 x 10 cm. The exact dimensions are difficult to assess due to the metallic artifact. This heterogeneous collection abuts the posterior aspect of the proximal left femur. No kne e effusion. There is questionable punctate focus of active arterial show cavitation at the subcutaneo us component of this suspected hematoma best seen on axial image 90 of series 3. IMPRESSION: 1. There is a large heterogeneous multiloculated collection within the left posterior lateral hip/pro ximal thigh measuring 25 x 11 x 10 cm. This involves the subcutaneous, intramuscular, and deep soft t issue compartments as described above. This favors an acute to subacute hematoma. 2. Possible punctate focus of active arterial extravasation within the subcutaneous location of the l eft lateral hip. 3. No fracture or dislocation within the left hip or left femur. 4. Left total arthroplasty. ACT 112: Negative or not required by law. Electronically signed by: Randall Lowery M.D. 05/05/2023 1:04 PM
[2023-05-05] MEDS ORDERED: KCENTRA (500unit vial) 2000 units IVP IV SCH (13:45)
--- NOTE | 2023-05-05 16:37 | History & Physical Report ---
Date of Service May 05, 2023 Assessment & Plan (1) Hematoma of left lower extremity: Plan: -Admit to med/tele -Currently stable -Patient has had a progressive hematoma of the left lower back, left buttocks, and left thigh over the past 8-9 days -Denies recent trauma, has been on Eliquis with last dose this am -CT of the hip/thigh with con shows large LLE hematoma with possible extravasation, orthopedics reviewed the imaging and does not believe she has acttive bleeding -No urgent indication for OR at this time -The hematoma was marked with a Surgical Marker on admission -q4h neuro checks ordered -OOB with assist -Orthopedics consulted and will follow -Hold chemical DVT PPX -Will start clear liquid diet overnight in case she would need to be taken urgently to the OR -Monitor CBB q6h, am CMP, and PT/INR (2) Acute blood loss anemia: Plan: -Hgb currently at 8.0, down from 13 as of 04/19 -Eliquis was reversed in the ED with 2,000 units of KCentra -Blood consent, Type/Screen and 2 units PRBC's will be prepared in case transfusion is needed -Monitor CBC q6h for now (3) Afib: Plan: -Diagnosed on last admission while having active cardiac/pericardial tamponade -Was seen in the Cardiology clinic on 04/29, amiodarone and aspirin were stopped as she was in NSR -Is in NSR today on exam, will confirm with ECG on admission -Hold Eliquis for now with hematoma and anemia -Continue to monitor on tele (4) Pericardial effusion: Plan: -Currently asymptomatic -Continue Colchicine (5) GERD (gastroesophageal reflux disease): Plan: -Continue pantoprazole (6) Hypertension: Plan: -Stable -Hold irbesartan for now to prevent hypotension (7) Hyperlipidemia: Plan: -Continue statin Plan The patient was discussed with Dr. Potts at the time of the admission History of Present Illness Chief Complaint: Left hip/leg pain Primary Care Provider: Baldo Sow MD is a 72 year old female with a PMH significant forhypertension, hyperlipidemia, and recent admission to [facility] in March for pericardia eff usion/tamponade with resultant afib (has been on elqiuis) who presented to the [facility] ED on 05/05 due to progressive left hip/left leg pain and worsening LLE hematoma. Vitals remained stable in the ED. Labs were significant for a leukocytosis of 19 with left shift of 16, platelet count of 624 (up from 413 as of 04/19), INR of 1.2, sodium of 134, total bili of 1.5. CT of the left femur/hip with con was read as "1. There is a large heterogeneous multiloculated collection within the left posterior lateral hip/proximal thigh measuring 25 x 11 x 10 cm. This involves the subcutaneous, intramuscular, and deep soft tissue compartments as described above. This favors an acute to subacute hematoma. 2. Possible punctate focus of active arterial extravasation within the subcutaneous location of the left lateral hip. 3. No fracture or dislocation within the left hip or left femur. 4. Left total arthroplasty.". Prior to admission the patient was evaluated by orthopedics who does not believe she has an active bleed at this time and recommended conservative treatment for now. In the ED she was given 2,000 Units of KCentra, 8 mg total IV morphine, 500 mL NSS, and 4 mg IV Zofran. Per chart review, the patient was recently diagnosed at [facility] as a transfer from [facility] from 04/13-04/19 due to cardiac/pericardial tamponade. While admitted she underwent pericardiocentesis and was started on broad spectrum antibiotics. Her drain was successfully removed on 04/16 and she was discharged on Colchicine and aspirin. ID was consulted during her admission and did not believe that her pericardial fluid to be infected. Empiric antibiotics were discontinued. Her admission was complicated by new onset atrial fibrillation thought to be caused by her acute cardiac problems. She was evaluated by Cardiology who recommended starting amiodarone and Eliquis. She was recently seen in the Cardiology Clinic for follow up on 04/29. Per their note the patient was found to be in NSR, amiodarone and aspirin were stopped. Her dose of Colchicine was increased to 0.6 mg BID as her amiodarone was discontinued and she was continued on Eliquis with repeat echo scheduled in 2 weeks. At the time of the exam the patient was lying in bed and was in moderate pain. She states that she first noticed the bruising on the left hip/LLE approximately 8-9 days ago. She continued to take BID Eliquis with her last dose being this am. Her pain progressed to the point that she was requiring the use of a cane for ambulation, this is not her baseline. Today her pain was so severe that she could not get out of bed. She denies numbness/tingling or feeling of a cold LLE over this time. She denies recent fever, chills, chest pain, SOB, cough, abd pain, nausea vomiting, diarrhea, dysuria, hematuria, melena, and recent trauma. We completed a blood consent in case she would need a transfusion. She wishes to be a Full code and for her to make medical decisions for her if she could not make them herself. Please refer to Dr. Potts's attestation for any changes to the treatment plan Allergies Allergy/AdvReac Type Severity Reaction Status Date / Time vancomycin Allergy Mild Rash Verified 04/30/23 09:54 Home Medications Medication Instructions Recorded Confirmed Type atorvastatin 20 mg tablet 20 mg PO DAILY 04/14/23 05/05/23 History escitalopram oxalate 10 mg tablet 10 mg PO DAILY 04/14/23 05/05/23 History irbesartan 150 mg tablet 150 mg PO DAILY 04/14/23 05/05/23 History tramadol 50 mg tablet 50 mg PO Q8H PRN Pain 04/14/23 05/05/23 History amiodarone 200 mg tablet 200 mg PO DAILY 30 days #30 tabs 04/19/23 05/05/23 Rx apixaban 5 mg tablet (Eliquis) 5 mg PO Q12H 30 days #60 tabs 04/19/23 05/05/23 Rx aspirin 81 mg tablet,delayed 81 mg PO BID 30 days #60 tabs 04/19/23 05/05/23 Rx release colchicine (gout) 0.6 mg tablet 0.6 mg PO BID 30 days #60 tabs 04/19/23 05/05/23 Rx (Colcrys) pantoprazole 40 mg tablet,delayed 40 mg PO QAM 30 days #30 tabs 04/19/23 05/05/23 Rx release Past Med/Surg History Social History Smoking Status: Former smoker Hx Alcohol Use: Yes Alcohol type: wine Hx Substance Use: No Preferred Language: Urdu Communication Ability: Effective Lead Javascript Developer Required: No Beliefs That Will Affect Care: None Current Living Situation: Spouse Feels Safe at Home: Yes Assistive Devices: Glasses Physical Exam Physical Exam: Physical Exam: General: In no acute distress, stated age, well-nourished, good hygiene, non- toxic appearing HEENT: Normocephalic, atraumatic, no scleral icterus, pupils around round, symmetrical, and reactive to light, moist mucus membranes, trachea midline, no thyromegaly Chest/Pulm: No respiratory distress, symmetrical chest expansion, clear breath sounds throughout Cardiac: RRR, no murmurs noted Abdomen: Negative for ascites and bruising, normoactive bowel sounds, soft, non-tender to palpation throughout Musculoskeletal: Significant bruising of the left lower back, buttocks, and proximal thigh in various stages of healing, the distal thigh is firm and tender to palpation Extremities: Radial, dorsalis pedis, and posterior tibial pulses are intact and symmetrical, no edema noted in the BL LE's Skin: As described above, otherwise no other abnormalities Neuro: Alert and oriented to person, place, month, year, and president, no focal defects, symmetrical sensation and strength in the BL LE's, no tremors noted Psych: No acute distress, calm and cooperative during the exam Results & Data Results & Data Vital Signs (Past 12 Hours) Vital Signs Temp Pulse Pulse Resp BP BP Pulse Ox 05/05/23 16:00 84 18 103/71 98 05/05/23 14:03 92 H 05/05/23 14:00 90 12 105/61 97 05/05/23 13:00 87 14 107/55 L 100 05/05/23 11:49 96 H 18 124/72 100 05/05/23 10:25 100 H 05/05/23 10:09 36.2 C L 106 H 24 177/79 H 100 O2 Del Method 05/05/23 16:00 Room Air 05/05/23 14:03 05/05/23 14:00 Room Air 05/05/23 13:00 Room Air 05/05/23 11:49 Room Air 05/05/23 10:25 05/05/23 10:09 Room Air Laboratory Results Abnormal lab results 05/05/23 05/05/23 05/05/23 Range/Units 10:26 10:26 10:26 WBC 19.09 H (4.8-10.8) K/ul RBC 3.19 L (4.20-5.40) M/uL Hgb 8.8 L (12.0-16.0) g/dl Hct 26.6 L (37.0-47.0) % Plt Count 624 H (130-400) K/uL Neut # (Auto) 16.48 H (1.40-6.50) K/uL Lymph # (Auto) 0.99 L (1.2-3.4) K/uL Dale # (Auto) 1.30 H (0.11-0.59) K/uL PT 12.9 H (9.0-12.0) Seconds INR 1.2 H (0.9-1.1) Sodium 134 L (136-145) mmol/L Glucose 107 H (70-99(Fasting)) mg/dl Total Bilirubin 1.5 H (0.2-1.0) mg/dl Albumin 3.2 L (3.4-5.0) gm/dl 05/05/23 Range/Units 15:56 WBC (4.8-10.8) K/ul RBC (4.20-5.40) M/uL Hgb 8.0 L (12.0-16.0) g/dl Hct 24.3 L (37.0-47.0) % Plt Count (130-400) K/uL Neut # (Auto) (1.40-6.50) K/uL Lymph # (Auto) (1.2-3.4) K/uL Dale # (Auto) (0.11-0.59) K/uL PT (9.0-12.0) Seconds INR (0.9-1.1) Sodium (136-145) mmol/L Glucose (70-99(Fasting)) mg/dl Total Bilirubin (0.2-1.0) mg/dl Albumin (3.4-5.0) gm/dl Diagnostic Findings Femur CT 05/05/23 10:25 CT femur LT w con, CT hip LT w con CT DOSE: 876.52 mGy.cm CLINICAL HISTORY: hematoma L buttocks and upper posterior L LOWER EXTREMITY TECHNIQUE: Multiaxial CT images of the left hip and left femur were performed following the intravenous administration of 89 cc of Optiray 350. Sagittal and coronal reformations were also obtained. A dose lowering technique was utilized adhering to the principles of ALARA. COMPARISON STUDY: None. FINDINGS: There is a left total hip arthroplasty. This results in suboptimal evaluation of the left hip and proximal left femur due to the metallic artifact. However, there is no definite fracture or dislocation within the left hip or left femur. The visualized pelvic bones are intact. No abnormal periprosthetic lucency. A few prominent left inguinal lymph nodes. These may be reactive. Colonic diverticulosis is noted. Mild calcified plaque within the left femoral and popliteal arteries. No significant stenosis or occlusion identified. Subcutaneous edema/hemorrhage within the left lateral hip and proximal lateral thigh. There is a multiloculated heterogeneous collection posterior to the left hip and proximal left femur which extends into the subcutaneous soft tissues of the left lateral hip as well as the inferior aspect of the left gluteus alisha muscle. This heterogeneous multiloculated collection measures up to 25 x 11 x 10 cm. The exact dimensions are difficult to assess due to the metallic artifact. This heterogeneous collection abuts the posterior aspect of the proximal left femur. No knee effusion. There is questionable punctate focus of active arterial show cavitation at the subcutaneous component of this suspected hematoma best seen on axial image 90 of series 3. IMPRESSION: 1. There is a large heterogeneous multiloculated collection within the left posterior lateral hip/proximal thigh measuring 25 x 11 x 10 cm. This involves the subcutaneous, intramuscular, and deep soft tissue compartments as described above. This favors an acute to subacute hematoma. 2. Possible punctate focus of active arterial extravasation within the subcutaneous location of the left lateral hip. 3. No fracture or dislocation within the left hip or left femur. 4. Left total arthroplasty. ACT 112: Negative or not required by law. Electronically signed by: Randall Lowery M.D. 05/05/2023 1:[address] 05/05/23 10:25 CT femur LT w con, CT hip LT w con CT DOSE: 876.52 mGy.cm CLINICAL HISTORY: hematoma L buttocks and upper posterior L LOWER EXTREMITY TECHNIQUE: Multiaxial CT images of the left hip and left femur were performed following the intravenous administration of 89 cc of Optiray 350. Sagittal and coronal reformations were also obtained. A dose lowering technique was utilized adhering to the principles of ALARA. COMPARISON STUDY: None. FINDINGS: There is a left total hip arthroplasty. This results in suboptimal evaluation of the left hip and proximal left femur due to the metallic artifact. However, there is no definite fracture or dislocation within the left hip or left femur. The visualized pelvic bones are intact. No abnormal periprosthetic lucency. A few prominent left inguinal lymph nodes. These may be reactive. Colonic diverticulosis is noted. Mild calcified plaque within the left femoral and popliteal arteries. No significant stenosis or occlusion identified. Subcut aneous edema/hemorrhage within the left lateral hip and proximal lateral thigh. There is a multiloculated heterogeneous collection posterior to the left hip and proximal left femur which extends into the subcutaneous soft tissues of the left lateral hip as well as the inferior aspect of the left gluteus alisha muscle. This heterogeneous multiloculated collection measures up to 25 x 11 x 10 cm. The exact dimensions are difficult to assess due to the metallic artifact. This heterogeneous collection abuts the posterior aspect of the proximal left femur. No knee effusion. There is questionable punctate focus of active arterial show cavitation at the subcutaneous component of this suspected hematoma best seen on axial image 90 of series 3. IMPRESSION: 1. There is a large heterogeneous multiloculated collection within the left posterior lateral hip/proximal thigh measuring 25 x 11 x 10 cm. This involves the subcutaneous, intramuscular, and deep soft tissue compartments as described above. This favors an acute to subacute hematoma. 2. Possible punctate focus of active arterial extravasation within the subcutaneous location of the left lateral hip. 3. No fracture or dislocation within the left hip or left femur. 4. Left total arthroplasty. ACT 112: Negative or not required by law. Electronically signed by: Randall Lowery M.D. 05/05/2023 1:04 PM ECG Additional Comments: Will obtain ECG on admission Code Status & VTE Plan Code Status Full code VTE Prophylaxis Plan VTE Prophylaxis will be ordered: Yes Supervising Physician Co-Signing Physician Notes I personally saw and examined the patient. I verified all zuniga points and agree with Vignesh Quiñones PA-C with the following exceptions and/or additions: 72 year old female presents to the ER with left hip hematoma. No chest pain, shortness of breath or dizziness. Hematoma progressively getting worse over the last week. O/E A&Ox3, HS RRR, no murmurs, Chest CTAB, Abdo SNT, Left hip swelling and ecchymosis which spreads around her back - outline drawn by PA A/P Left hip hematoma - hold Eliquis and aspirin. KCentra given on advice of anticoagulation clinic Dr Kaufman. Monitor Hgb. Given asymptomatic would transfuse if Hgb < 7. Consult orthopedics. PG Care Time/CCT Total # of Minutes Spent Total Time Spent with Patient: Total time spent is greater than 50% in coordination of care (as documented) at patient's floor/unit and/or counseling patient: Coding [place] [address] INT INP/OBS CARE 3/75MIN Patient Type Established Medical Decision Making High Complexity Diagnoses Hematoma of left lower extremity S80.12XA Acute blood loss anemia D62 Afib I48.91 Pericardial effusion I31.39 GERD (gastroesophageal reflux disease) K21.9 Hypertension I10 Hyperlipidemia E78.5
[2023-05-05 16:51] LABS: Hematocrit (blood only) 24.3 % (37.0-47.0)
[2023-05-05] MEDS ORDERED: SODIUM CHLORIDE 0.9% 250 ML IV PRN (17:09)
[2023-05-05] MEDS ORDERED: ACETAMINOPHEN 325 MG TAB PO PRN (18:09)
[2023-05-05] MEDS: COLCHICINE 0.6 MG TAB PO SCH (20:46)
[2023-05-05] MEDS: MoRPHine SULFATE 4 MG/ML 1 ML CARP\\VIAL IV PRN (20:56)
[2023-05-05 22:48] LABS: Hematocrit (blood only) 22.7 % (37.0-47.0); Hemoglobin 7.4 g/dl (12.0-16.0); Mean Corpuscular Hemoglobin 27.8 pg (25.0-34.0); Mean Corpuscular Hgb Conc 32.6 g/dL (32.0-36.0); Mean Corpuscular Volume 85.3 fL (80.0-100.0); Mean Platelet Volume 9.4 fL (9.4-12.4); Platelet Count 522 K/uL (130-400); RDW Coefficient of Variation 14.2 % (11.5-14.5); RDW Standard Deviation 43.9 fL (36.4-46.3); Red Blood Count 2.66 M/uL (4.20-5.40); White Blood Count 15.02 K/ul (4.8-10.8)
[2023-05-06 02:08] LABS: Appearance Urine Cloudy (Clear); Bacteria Urine Automated Negative (Negative); Bilirubin Urine Negative (Negative); Blood Urine 1+ (Negative); Color Urine Orange; Epithelial Cell Urine Auto >30 /lpf (0-5); Glucose Urine UA Negative (Negative); Ketones Urine 1+ (Negative); Leukocyte Esterase Urine Trace (Negative); Nitrite Urine Positive (Negative); Protein Urine Trace (Negative); Specific Gravity Urine 1.038 (1.000-1.030); Urobilinogen Urine Negative (Negative); pH Urine 5.5 (4.5-7.5)
[2023-05-06 02:25] LABS: Cast Urine Automated 0 /lpf (0-5); Renal Epithelial Cells Urine 0-5 /lpf (0-5)
[2023-05-06 04:41] LABS: Hematocrit (blood only) 22.6 % (37.0-47.0); Hemoglobin 7.3 g/dl (12.0-16.0); Mean Corpuscular Hgb Conc 32.3 g/dL (32.0-36.0); Mean Corpuscular Volume 83.7 fL (80.0-100.0); Mean Platelet Volume 9.5 fL (9.4-12.4); Platelet Count 514 K/uL (130-400); RDW Coefficient of Variation 14.2 % (11.5-14.5); White Blood Count 15.13 K/ul (4.8-10.8)
[2023-05-06 04:51] LABS: Albumin Globulin Ratio 0.8 (0.9-2); Albumin Level 2.6 gm/dl (3.4-5.0); BUN Creatinine Ratio 13.9 (10-20); Bilirubin,Total 1.2 mg/dl (0.2-1.0); Calcium 8.3 mg/dl (8.6-10.3); Creatinine Clr Calc Pharmacy 69.6 ml/min; Est GFR (African American) 97.7 ml/min; Est GFR (Non-African American) 84.3 ml/min; Globulin 3.1 gm/dl (2.5-4.0); Potassium 3.7 mmol/L (3.5-5.1); Total Protein 5.7 gm/dl (6.0-8.3)
[2023-05-06] MEDS: MoRPHine SULFATE 4 MG/ML 1 ML CARP\\VIAL IV PRN (06:26)
[2023-05-06 08:39] LABS: Hematocrit (blood only) 23.7 % (37.0-47.0); Hemoglobin 7.7 g/dl (12.0-16.0); Mean Corpuscular Hemoglobin 27.4 pg (25.0-34.0); Mean Corpuscular Hgb Conc 32.5 g/dL (32.0-36.0); Mean Corpuscular Volume 84.3 fL (80.0-100.0); Mean Platelet Volume 9.6 fL (9.4-12.4); Platelet Count 534 K/uL (130-400); RDW Coefficient of Variation 14.2 % (11.5-14.5); RDW Standard Deviation 43.8 fL (36.4-46.3); Red Blood Count 2.81 M/uL (4.20-5.40); White Blood Count 16.59 K/ul (4.8-10.8)
[2023-05-06] MEDS: ATORVASTATIN 20 MG TAB PO SCH (08:54)
[2023-05-06] MEDS: PANTOprazole 40 MG TAB PO SCH (08:54)
[2023-05-06] MEDS: COLCHICINE 0.6 MG TAB PO SCH ×2 (08:54→20:29)
[2023-05-06] MEDS: ESCITALOPRAM OXALATE 10 MG TAB PO SCH (08:54)
[2023-05-06] MEDS ORDERED: AMIODARONE 200 MG TAB PO SCH (09:15)
[2023-05-06] MEDS ORDERED: SODIUM CHLORIDE 0.9% 250 ML IV PRN (13:07)
[2023-05-06] MEDS ORDERED: DEXTROSE 5% IV SCH (15:00)
[2023-05-06] MEDS ORDERED: CEFTRIAXONE SODIUM IV SCH (15:00)
--- NOTE | 2023-05-06 15:03 | Hospitalist Progress Note ---
Date of Service May 06, 2023 Assessment & Plan (1) Hematoma of left lower extremity: Plan: Extensive left buttock hematoma. Heat applications if patient desires. Am bulate with a walker as long as necessary. Eliquis has been discontinued. Appreciate orthopedic consultation. No surgical intervention needed at this time. CT of the hip/thigh with con shows large LLE hematoma. (2) Acute blood loss anemia: Plan: Due to soft tissue hematoma left buttock. Hemoglobin down to 7.7. She consents to blood transfusion at this time. Continue serial labs (3) Afib: Plan: Recently occurred with her pericardial effusion and tamponade. She is now in normal sinus rhythm. Eliquis has been discontinued. She has seen cardiology as an outpatient. Aspirin and amiodarone were recently discontinued. Telemetry (4) UTI (urinary tract infection): Plan: Possible. Await urine culture results. Rocephin, day 1 (5) Pericardial effusion: Plan: Currently asymptomatic . Continue Colchicine (6) GERD (gastroesophageal reflux disease): Plan: Stable. Continue pantoprazole (7) Hypertension: Plan: Stable. Losartan temporarily on hold (8) Hyperlipidemia: Plan: Stable. Continue statin Plan Hopeful discharge to home tomorrow, May 07 Admission and Anticipated Discharge Date Admission Date: May 05, 2023 Subjective Alert and oriented. No distress. is at the bedside. She has intermittent fevers and the urine analysis was abnormal on admission. Rocephin has been started. Urine and blood cultures pending. Blood transfusion ordered. She states she does not take amiodarone even though it is on her home medication list. Eliquis has been discontinued. She received Kcentra in the ED. Aspirin is also on hold. Orthopedic consultation appreciated. She is ambulating with a walker. Hopefully she can go home tomorrow, May 07 Review of Systems Review of Systems: Constitutional-no fever or chills ENT-no blurred vision, no double vision, no epistaxis, no sore throat Respiratory-no cough, no wheezing, no shortness of breath Cardiac-no palpitations, no chest pain, no syncope GI-no nausea, vomiting, diarrhea, melena, hematochezia -no urinary retention, no urinary incontinence, no dysuria, no hematuria Musculoskeletal-left buttock discomfort and swelling Skin-ecchymoses left buttock Neuro-no isolated weakness, no paresthesia Psych-no depression, no anxiety Physical Exam Physical Exam: General-alert and oriented x3. Intermittent fever HEENT-head atraumatic and normocephalic, pupils equal and reactive to light, extraocular muscles intact Neck-no lymphadenopathy or thyromegaly, trachea midline Chest-clear to auscultation percussion. No rales wheezing or rhonchi Cardiac-regular rate and rhythm, normal S1 and S2, no murmurs Abdomen-normal bowel sounds, nontender, no hepatosplenomegaly Extremities-no cyanosis, clubbing, or edema Skinextensive ecchymoses and swelling from underlying hematoma involving the left lateral buttock Neuro-cranial nerves II through XII intact, motor and sensory function within normal limits, strength symmetrical , no focal deficits Psych-normal affect, normal mood Results & Data Results & Data Vital Signs (Past 12 Hours) Vital Signs Temp Pulse Pulse Resp BP BP Pulse Ox 05/06/23 14:48 97 H 05/06/23 14:10 38.3 C H 05/06/23 10:59 37.3 C 98 H 18 95/58 L 92 05/06/23 07:00 103 H 05/06/23 07:10 37.4 C 100 H 18 103/64 92 05/06/23 04:04 37.4 C 101 H 16 99/60 L 94 05/06/23 03:59 100 H O2 Del Method 05/06/23 14:48 05/06/23 14:10 05/06/23 10:59 Room Air 05/06/23 07:00 05/06/23 07:10 Room Air 05/06/23 04:04 Room Air 05/06/23 03:59 Laboratory Results 05/06/23 07:56 05/06/23 04:22 PG Care Time/CCT Total # of Minutes Spent Total Time Spent with Patient: Total time spent is greater than 50% in coordination of care (as documented) at patient's floor/unit and/or counseling patient: Coding Level of Care Code 87534 SUB INP/OBS CARE 3/50MIN Diagnoses Hematoma of left lower extremity S80.12XA Acute blood loss anemia D62 Afib I48.91 UTI (urinary tract infection) N39.0 Pericardial effusion I31.39 GERD (gastroesophageal reflux disease) K21.9 Hypertension I10 Hyperlipidemia E78.5
--- NOTE | 2023-05-06 20:25 | Orthopedic Consultation ---
Date of Consultation May 06, 2023 Assessment & Plan (1) Hematoma of left lower extremity: After examination and discussion with the patient, recommend observation and conservative management to include intermittent use of heating pad and ice as needed. Continue to monitor hemoglobin. If symptoms improve and hematoma diminishes in size with decreased symptoms will avoid surgery. If symptoms persist, worsen or hematoma enlarges with possible skin compromise would then recommend surgical evacuation of the hematoma. Will follow with you. Thank you for the opportunity to consult in the care of this patient. Andrea Lei [facility] [phone] (2) Acute blood loss anemia: (3) Nontraumatic intramuscular hematoma: History of Present Illness Reason for Consultation: Left hip/buttock hematoma with pain and bruising. Attending Physician: Rafael Guo MD History of Present Illness This 72-year-old female was seen at the request of the hospitalist service. Patient had history of 8 to 9 days of worsening pain, swelling and then eventual ambulatory dysfunction requiring use of a cane in her left hip. She had a previous left hip replacement performed by Dr. Liz and has no history of pain in the left hip since procedure. Patient denies any recent trauma to the left hip or buttock. She noticed spontaneous bruising and increasing pain and swelling in the hip. She continued to take her Eliquis twice daily as recommended status post treatment for pericardial effusion and tamponade with new diagnosis of atrial fibrillation. She notes improvement in her symptoms with bedrest since admission and since holding her Eliquis with reversal of anticoagulation with dose of Kcentra performed in the emergency department upon admission. Allergies Allergy/AdvReac Type Severity Reaction Status Date / Time vancomycin Allergy Mild Rash Verified 04/30/23 09:54 Home Medications Medication Instructions Recorded Confirmed Type atorvastatin 20 mg tablet 20 mg PO DAILY 04/14/23 05/05/23 History escitalopram oxalate 10 mg tablet 10 mg PO DAILY 04/14/23 05/05/23 History irbesartan 150 mg tablet 150 mg PO DAILY 04/14/23 05/05/23 History tramadol 50 mg tablet 50 mg PO Q8H PRN Pain 04/14/23 05/05/23 History amiodarone 200 mg tablet 200 mg PO DAILY 30 days #30 tabs 04/19/23 05/05/23 Rx apixaban 5 mg tablet (Eliquis) 5 mg PO Q12H 30 days #60 tabs 04/19/23 05/05/23 Rx aspirin 81 mg tablet,delayed 81 mg PO BID 30 days #60 tabs 04/19/23 05/05/23 Rx release colchicine (gout) 0.6 mg tablet 0.6 mg PO BID 30 days #60 tabs 04/19/23 05/05/23 Rx (Colcrys) pantoprazole 40 mg tablet,delayed 40 mg PO QAM 30 days #30 tabs 04/19/23 05/05/23 Rx release Patient History Social History Smoking Status: Former smoker Hx Alcohol Use: Yes Alcohol type: wine Hx Substance Use: No Preferred Language: Danish Communication Ability: Effective Barrel Tester Required: No Beliefs That Will Affect Care: None Current Living Situation: Spouse Feels Safe at Home: Yes Assistive Devices: None Review of Systems Review of Systems: No chest pain, no shortness of breath, no nausea, no vomiting, no diarrhea. Physical Exam Constitutional: WD/WN, vitals as above Eyes: PERRL, conjunctivae normal, anicteric sclerae ENMT: external ear and nose normal, oropharynx normal Neck: trachea midline, no thyromegaly Respiratory: normal respiratory effort, lungs clear to auscultation Gastrointestinal (Abdomen): normal bowel sounds, soft, nontender, no hepatosplenomegaly Musculoskeletal: Large area of bruising/ecchymosis left buttock with prominent baseball sized fluid pocket left buttock adjacent to previous left posterior hip incision. No pain or irritability with active and passive range of motion of the left hip. Mild tenderness to palpation. Compartments soft. No evidence of skin c ompromise. Nonpulsatile mass. Pedal pulses palpable 2/4 bilateral. Distal neurovascular status intact. Skin: Warm, dry, intact. Left posterior hip incision intact with bruising and local hematoma as noted above. Neurologic: PERRL, EOMI, accommodation nl, no face palsy, no dysarthria Psychiatric: A+Ox3, euthymic affect Lymphatic: no cervical or axillary lymphadenopathy Results & Data Vital Signs (Past 12 Hours) Vital Signs Temp Pulse Pulse Resp BP BP Pulse Ox 05/06/23 19:53 37.0 C 91 H 16 101/64 94 05/06/23 19:54 37 C 91 H 16 101/64 94 05/06/23 19:23 36.9 C 92 H 18 120/61 94 05/06/23 19:10 37.0 C 89 18 108/67 90 05/06/23 18:09 05/06/23 18:50 37.2 C 93 H 18 117/76 94 05/06/23 18:23 37.3 C 91 H 17 103/64 94 05/06/23 17:30 37.2 C 95 H 18 117/61 90 05/06/23 16:30 37.0 C 93 H 18 99/59 L 92 05/06/23 16:00 37.1 C 92 H 17 108/62 94 05/06/23 15:45 37.2 C 94 H 18 102/65 91 05/06/23 15:28 37.4 C 91 H 18 117/70 90 05/06/23 15:02 37.5 C 05/06/23 14:48 97 H 05/06/23 14:10 38.3 C H 05/06/23 10:59 37.3 C 98 H 18 95/58 L 92 Pulse Ox O2 Del Method O2 Del Method O2 Flow Rate 05/06/23 19:53 0 05/06/23 19:54 Room Air 05/06/23 19:23 0 05/06/23 19:10 05/06/23 18:09 94 Room Air 05/06/23 18:50 05/06/23 18:23 05/06/23 17:30 05/06/23 16:30 05/06/23 16:00 05/06/23 15:45 05/06/23 15:28 05/06/23 15:02 05/06/23 14:48 05/06/23 14:10 05/06/23 10:59 Room Air Laboratory Results Laboratories reviewed. Blood loss anemia. Diagnostic Findings CT scan left hip and CT scan left femur images and report reviewed with my interpretation of left intramuscular gluteus alisha hematoma extending to the left buttock measured 25 x 11 x 10 cm. Hip prosthesis intact, well-fixed and well aligned. No evidence of fracture.
[2023-05-07 01:19] LABS: Hematocrit (blood only) 31.3 % (37.0-47.0); Hemoglobin 10.3 g/dl (12.0-16.0)
[2023-05-07] MEDS: COLCHICINE 0.6 MG TAB PO SCH (07:49)
[2023-05-07] MEDS: PANTOprazole 40 MG TAB PO SCH (07:49)
[2023-05-07] MEDS: ATORVASTATIN 20 MG TAB PO SCH (07:49)
[2023-05-07] MEDS: ESCITALOPRAM OXALATE 10 MG TAB PO SCH (07:49)
[2023-05-07 08:09] LABS: Basophils # (auto) 0.09 K/uL (0-0.2); Basophils % (auto) 0.5 %; Eosinophils # (auto) 0.18 K/uL (0-0.50); Eosinophils % (auto) 1.1 %; Hematocrit (blood only) 31.7 % (37.0-47.0); Hemoglobin 10.6 g/dl (12.0-16.0); Immature Granulocytes # (auto) 0.13 K/uL (0.01-0.20); Immature Granulocytes % (auto) 0.8 %; Lymphocytes # (auto) 1.16 K/uL (1.2-3.4); Lymphocytes % (auto) 6.9 %; Mean Corpuscular Hemoglobin 27.9 pg (25.0-34.0); Mean Corpuscular Hgb Conc 33.4 g/dL (32.0-36.0); Mean Corpuscular Volume 83.4 fL (80.0-100.0); Mean Platelet Volume 9.7 fL (9.4-12.4); Monocytes # (auto) 1.38 K/uL (0.11-0.59); Monocytes % (auto) 8.2 %; Neutrophils # (auto) 13.99 K/uL (1.40-6.50); Neutrophils % (auto) 82.5 %; Platelet Count 528 K/uL (130-400); RDW Coefficient of Variation 14.2 % (11.5-14.5); RDW Standard Deviation 43.3 fL (36.4-46.3); White Blood Count 16.93 K/ul (4.8-10.8)
[2023-05-07 08:45] LABS: BUN Creatinine Ratio 15.3 (10-20); Calcium 8.5 mg/dl (8.6-10.3); Creatinine Clr Calc Pharmacy 84.2 ml/min; Est GFR (African American) 106.9 ml/min; Est GFR (Non-African American) 92.2 ml/min; Potassium 3.6 mmol/L (3.5-5.1)
--- NOTE | 2023-05-07 12:21 | Discharge Summary ---
Date of Service May 07, 2023 Admission HPI Per Admitting Provider is a 72 year old female with a PMH significant forhypertension, hyperlipidemia, and recent admission to [facility] in March for pericardia effusion/tamponade with resultant afib (has been on elqiuis) who presented to the [facility] ED on 05/05 due to progressive left hip/left leg pain and worsening LLE hematoma. Vitals remained stable in the ED. Labs were significant for a leukocytosis of 19 with left shift of 16, platelet count of 624 (up from 413 as of 04/19), INR of 1.2, sodium of 134, total bili of 1.5. CT of the left femur/hip with con was read as "1. There is a large heterogeneous multiloculated collection within the left posterior lateral hip/proximal thigh measuring 25 x 11 x 10 cm. This involves the subcutaneous, intramuscular, and deep soft tissue compartments as described above. This favors an acute to subacute hematoma. 2. Possible punctate focus of active arterial extravasation within the subcutaneous location of the left lateral hip. 3. No fracture or dislocation within the left hip or left femur. 4. Left total arthroplasty.". Prior to admission the patient was evaluated by orthopedics who does not believe she has an active bleed at this time and recommended conservative treatment for now. In the ED she was given 2,000 Units of KCentra, 8 mg total IV morphine, 500 mL NSS, and 4 mg IV Zofran. Per chart review, the patient was recently diagnosed at [facility] as a transfer from [facility] from 04/13-04/19 due to cardiac/pericardial tamponade. While admitted she underwent pericardiocentesis and was started on broad spectrum antibiotics. Her drain was successfully removed on 04/16 and she was discharged on Colchicine and aspirin. ID was consulted during her admission and did not believe that her pericardial fluid to be infected. Empiric antibiotics were discontinued. Her admission was complicated by new onset atrial fibrillation thought to be caused by her acute cardiac problems. She was evaluated by Cardiology who recommended starting amiodarone and Eliquis. She was recently seen in the Cardiology Clinic for follow up on 04/29. Per their note the patient was found to be in NSR, amiodarone and aspirin were stopped. Her dose of Colchicine was increased to 0.6 mg BID as her amiodarone was discontinued and she was continued on Eliquis with repeat echo scheduled in 2 weeks. At the time of the exam the patient was lying in bed and was in moderate pain. She states that she first noticed the bruising on the left hip/LLE approximately 8-9 days ago. She continued to take BID Eliquis with her last dose being this am. Her pain progressed to the point that she was requiring the use of a cane for ambulation, this is not her baseline. Today her pain was so severe that she could not get out of bed. She denies numbness/tingling or feeling of a cold LLE over this time. She denies recent fever, chills, chest pain, SOB, cough, abd pain, nausea vomiting, diarrhea, dysuria, hematuria, melena, and recent trauma. We completed a blood consent in case she would need a transfusion. She wishes to be a Full code and for her to make medical decisions for her if she could not make them herself. Please refer to Dr. Potts's attestation for any changes to the treatment plan Principal Diagnosis Soft tissue hemorrhage due to Eliquis, acute blood loss anemia, suspected urinary tract infection Discharge Exam General-alert and oriented x3. Intermittent fever HEENT-head atraumatic and normocephalic, pupils equal and reactive to light, extraocular muscles intact Neck-no lymphadenopathy or thyromegaly, trachea midline Chest-clear to auscultation percussion. No rales wheezing or rhonchi Cardiac-regular rate and rhythm, normal S1 and S2, no murmurs Abdomen-normal bowel sounds, nontender, no hepatosplenomegaly Extremities-no cyanosis, clubbing, or edema Skinextensive ecchymoses and swelling from underlying hematoma involving the left lateral buttock Neuro-cranial nerves II through XII intact, motor and sensory function within normal limits, strength symmetrical , no focal deficits Psych-normal affect, normal mood Discharge Data Allergies Allergy/AdvReac Type Severity Reaction Status Date / Time vancomycin Allergy Mild Rash Verified 04/30/23 09:54 Consultations 05/05/23 15:49 Consult Orthopedic Surgery Routine 05/05/23 15:56 ED Decision to Admit Stat Ordered Studies 05/05/23 10:25 CT femur LT w con Stat CT hip LT w con Stat Hospital Course (1) Hematoma of left lower extremity: Extensive left buttock hematoma consistent with soft tissue hemorrhage due to Eliquis therapy. No trauma. Heat applications if patient desires. Ambulate with a walker as long as necessary. Eliquis has been discontinued. Appreciate orthopedic consultation. No surgical intervention needed at this time. CT of the hip/thigh with con shows large LLE hematoma. (2) Acute blood loss anemia: Due to soft tissue hematoma left buttock. Hemoglobin improved to greater than 10 after transfusion for low hemoglobin level. Continue iron supplementation post discharge for 1 month (3) Afib: Recently occurred with her pericardial effusion and tamponade. She is now in normal sinus rhythm. Eliquis has been discontinued. She has seen cardiology as an outpatient. Aspirin and amiodarone were recently discontinued. Telemetry (4) UTI (urinary tract infection): Possible. Await urine culture results. Rocephin, day 2. Home on Ceftin (5) Pericardial effusion: Currently asymptomatic . Continue Colchicine (6) GERD (gastroesophageal reflux disease): Stable. Continue pantoprazole (7) Hypertension: Stable. Losartan temporarily on hold. Restart at discharge (8) Hyperlipidemia: Stable. Continue statin Plan Home today, May 07 Total Time Total Time Spent Total Time Spent (In Minutes): 45-minute Discharge Plan Discharge Items Patient Disposition: Home - Self-Care Reason For Visit: LEFT HIP/THIGH HEMATOMA, ANEMIA Discharge Diagnosis: Soft tissue hemorrhage left buttock due to Eliquis, acute blood loss anemia, suspected UTI Activity: Resume your previous activity Non-emergency contact: Primary Care Provider Call non-emergency contact if: your symptoms worsen Follow-up/Referrals: Baldo Sow MD [Primary Care Provider] - Diet: Regular and Heart Healthy Addtl Attending Provider Instructions: Take Keflex (cephalexin )as directed for suspected urinary tract infection. Eliquis has been discontinued. Take iron supplementation for 1 month Pending Studies at Discharge: No Stand-Alone Forms: My [employer], Smoking Cessation Medications and DC Order Prescriptions: New cephalexin 250 mg capsule 250 mg PO TID Qty: 10 0RF Continued atorvastatin 20 mg tablet 20 mg PO DAILY tramadol 50 mg tablet 50 mg PO Q8H PRN (Reason: Pain) irbesartan 150 mg tablet 150 mg PO DAILY escitalopram oxalate 10 mg tablet 10 mg PO DAILY aspirin 81 mg Tablet,Delayed Release (Dr/Ec) 81 mg PO BID 30 Days Qty: 60 0RF pantoprazole 40 mg Tablet,Delayed Release (Dr/Ec) 40 mg PO QAM 30 Days Qty: 30 0RF colchicine (gout) [Colcrys] 0.6 mg Tablet 0.6 mg PO BID 30 Days Qty: 60 0RF Eliquis 5 mg tablet 5 mg PO Q12H 30 Days Qty: 60 0RF Discontinued amiodarone 200 mg Tablet 200 mg PO DAILY 30 Days Qty: 30 0RF Discharge Orders: Discharge Order (Routine); Ordered 05/07/23 Ordered By: Rafael Guo Admission Data Admit Date/Time: 05/05/23 16:39 Attending Provider: Rafael Guo Admit Provider: Robi Potts Primary Care Provider: Baldo Sow Other Providers: Andrea Lei ; Robi Potts Coding Level of Care Code 67269 INP/OBS DISCH >30 MIN Diagnoses Hematoma of left lower extremity S80.12XA Acute blood loss anemia D62 Afib I48.91 UTI (urinary tract infection) N39.0 Pericardial effusion I31.39 GERD (gastroesophageal reflux disease) K21.9 Hypertension I10 Hyperlipidemia E78.5
== END 2023-05-07 13:20 | disposition home or self-care (01) | DRG 813 ==
LOC: ED 10:05 → 2N 16:39 → SUATTDRO 16:39 → 2N 18:09